=== PATIENT | female | born 1965 | race Caucasian/White ===

== ENCOUNTER 2019-10-02 15:18 | Emergency (ER) | payer OTHER, SELFPAY ==
[2019-10-02 15:22] VITALS: BP 161/92; PULSE 101; RESP 18; TEMP 36.1; O2SAT 99
--- NOTE | 2019-10-02 16:06 | ED.GENADULT ---
HPI - General Adult General Chief complaint: Unspecified Stated complaint: sick for 3 days Time Seen by Provider: 10/02/19 15:53 History of Present Illness HPI narrative: SHe reports diffuse pain, nausea, and fatigue for the past 3 days. Symptoms started after discontinuation of cyclosporine. She was on it for interstitial cystitis. He urologist left their practice without notice and she has not been able to get it filled. No fever, chills, diarrhea. Related Data Home Medications Medication Instructions Recorded Confirmed albuterol sulfate 1 inh INHALATION QID PRN 10/02/19 calcium carbonate-vitamin D3 tablet 10/02/19 [Oysco 500/D] cyclobenzaprine mg 10/02/19 docusate sodium [DOK] PO 10/02/19 ergocalciferol (vitamin D2) 10/02/19 famotidine 10/02/19 fluticasone propionate INTRANASAL 10/02/19 gabapentin 10/02/19 galcanezumab-gnlm [Emgality Pen] 120 mg SUBCUT ONCE 10/02/19 10/02/19 hydrocodone-acetaminophen tablet 10/02/19 leflunomide 20 mg PO DAILY 10/02/19 10/02/19 jhldvj-auqdwzyk-vjelmhf [Creon] PO 10/02/19 meclizine mg 10/02/19 montelukast mg 10/02/19 sumatriptan succinate mg PO 10/02/19 Allergies Allergy/AdvReac Type Severity Reaction Status Date / Time aspirin Allergy Mild JITTERY Verified 10/02/19 17:50 morphine Allergy Unknown Rash Verified 10/02/19 17:50 Penicillins Allergy Unknown UNKNOWN Verified 10/02/19 17:50 Review of Systems Review of Systems: All systems reviewed & are unremarkable except as noted in HPI and below Constitutional: Constitutional: Reports fatigue and Reports weakness ENT: Denies sore throat Cardiovascular: Cardiovascular: Denies chest pain Gastrointestinal: Gastrointestinal: Reports nausea Genitourinary: Genitourinary: Denies hematuria and Denies dysuria Musculoskeletal: Musculoskeletal: Reports back pain Neurologic: Reports weakness [facility] Past Medical History Medical History (Updated 10/02/19 @ 18:05 by Wilber Denis MD) Interstitial cystitis Rheumatoid arthritis Social History Social History Gender identity (if verbalized by the patient): Female Exam Const: General: no acute distress and alert Orientation/consciousness: patient oriented x3 HENMT: Head: normal to inspection Neck: Neck: normal visual inspection and no lymphadenopathy Chest: Chest palpation & inspection: no tenderness Resp: Effort & Inspection: normal respiratory effort Auscultation: clear to auscultation bilaterally, no rales, no rhonchi and no wheezes Cardio: Jugular venous distension: no JVD Rate: regular rate Rhythm: regular rhythm Heart sounds: no murmurs GI: Inspection: non-distended GI Palp: Yes Soft to palpation and No Tenderness to palpation present (GI) Skin: General skin exam: normal color Neuro: General: patient oriented x3 and moves all extremities Speech: normal speech Extrem: General: no edema Psych: Appearance: well kempt Affect: normal affect Course Vital Signs Vital signs: Vital Signs Temperature 36.1 C L 10/02/19 15:22 Pulse Rate 101 H 10/02/19 15:22 Respiratory Rate 18 10/02/19 15:22 Blood Pressure 161/92 H 10/02/19 15:22 Pulse Oximetry 99 10/02/19 15:22 Temperature 36.1 C L 10/02/19 15:22 Pulse Rate 101 H 10/02/19 15:22 Respiratory Rate 18 10/02/19 15:22 Blood Pressure 161/92 H 10/02/19 15:22 Pulse Oximetry 99 10/02/19 15:22 Medical Decision Making MDM Narrative Medical decision making narrative: I am not aware of any dangerous effects of withdrawal of cyclosporine. As this is an off label use and outside the scope of my practice I do not feel comfortable continuing it. I will provide zofran as this seemed to be effective in controling her nausea. Medical Records Medical records reviewed: Yes I reviewed the patient's medical records. Vital Signs Vital Signs: Vital Signs Temperature 36.1 C L 10/02/19 15:22 Pulse Rate 101 H 07
[2019-10-02 16:27] LABS: Basophils Absolute Auto 0.1 K/mm3 (0.0-0.1); Basophils Percent Auto 0.9 % (0.2-1.2); Eosinophils Absolute Auto 0.2 K/mm3 (0-0.3); Eosinophils Percent Auto 3.6 % (0-4.4); Hematocrit 35.9 % (37.0-47.0); Hemoglobin 12.5 g/dL (12.0-15.0); Immature Granulocyte Absolute 0.02 K/mm3 (0.00-0.031); Immature Granulocyte Percent A 0.3 % (0-0.5); Lymphocytes Absolute Auto 1.53 K/mm3 (0.9-3.2); Lymphocytes Percent Auto 26.3 % (18.3-44.2); Mean Corpuscular HGB Conc 34.8 g/dl (32-36); Mean Corpuscular Hemoglobin 31.3 pg (26-34); Mean Platelet Volume 9.7 fl (7.4-10.4); Monocytes Absolute Auto 0.8 K/mm3 (0.1-0.6); Monocytes Percent Auto 13.7 % (2.6-8.5); Neutrophils Absolute Auto 3.2 K/mm3 (1.3-6.7); Neutrophils Percent Auto 55.2 % (45.5-73.1); Platelet Count Result 388 k/mm3 (150-375); Red Blood Count 3.99 M/mm3 (4.2-5.4); Red Cell Distribution Width 12.9 % (11.5-14.5); White Blood Count 5.8 K/mm3 (4.5-10.0)
[2019-10-02] MEDS: ONDANSETRON INJ 4 MG/2 ML VIAL IV PUSH (16:28)
[2019-10-02] MEDS: SODIUM CHLORIDE 0.9% IV 1,000 ML 999 ML IV CONT (16:28)
[2019-10-02 16:30] LABS: Add Urine Microscopic? YES; Appearance Urine Clear (Clear); Bilirubin Urine Negative (Negative); Blood Urine 1+ (Negative); Color Urine Colorless (Yellow); Glucose Urine UA Negative (Negative); Ketones Urine Negative (Negative); Leukocyte Esterase Ur Negative LEU/UL (Negative); Nitrate Urine Negative (Negative); Protein Urine Negative (Negative); RBC Urine 0-2 /hpf (0-2); Specific Grav Ur 1.008 (1.001-1.035); Squamous Epithelial Cell Urine Rare /hpf (Few); Urobilinogen Urine Negative mg/dL (<2.0); WBC Urine 0-3 /hpf
[2019-10-02 16:39] LABS: Alanine Aminotransferase 16 U/L (4-35); Albumin Level 4.2 g/dL (3.5-5.1); Alkaline Phosphatase 80 U/L (38-126); Aspartate Amino Transferase 23 U/L (14-36); Bilirubin,Total < 0.1 mg/dL (0.2-1.3); Blood Urea Nitrogen 7 mg/dL (7-17); Calcium 9.1 mg/dL (8.4-10.2); Carbon Dioxide 27 mmol/L (22-30); Chloride 106 mmol/L (98-107); Estimated CRCL calculation 97 ml/min; Estimated Glomerular Filt Rate > 60; Glucose 121 mg/dL (65-105); Potassium 3.3 mmol/L (3.4-5.0); Sodium 140 mmol/L (137-145)
== END 2019-10-02 18:04 | disposition home or self-care (01) ==
PROVIDERS: Emergency Provider Emergency Medicine; PCP Internal Medicine
DX: R11.0 Nausea (principal); M25.50 Pain in unspecified joint; M06.9 Rheumatoid arthritis, unspecified
CPT/HCPCS: 36415; 80053; 81001; 85025; 96361; 96374; 99284; J2405; J7030

== ENCOUNTER 2024-11-19 14:40 | Emergency (ER) | payer MEDICARE, SELFPAY ==
--- NOTE | ~2024-11-19 | XR_ITS ---
Clinical history:Fall EXAM:X-ray knee right 3 views TECHNIQUE:3 images of the right knee were obtained. Comparisons:None FINDINGS: Bone mineralization is within normal limits. No fracture. Soft tissue swelling about the right knee. Small suprapatellar effusion. Mild joint space narrowing in the patellofemoral joint. Questionable slight lateral subluxation of the patella, however, the finding may artifactual due to patient positioning. Correlate clinically. IMPRESSION: No fracture identified. Questionable slight lateral subluxation of the patella, however, the finding may be artifactual due to patient positioning. Correlate clinically. Mild joint space narrowing in the patellofemoral joint. If symptoms persist or worsen, consider a short-term follow-up study or additional imaging for further assessment. Reviewed, dictated and finalized at location Q. IMPRESSION: No fracture identified. Questionable slight lateral subluxation of the patella, however, the finding ma y be artifactual due to patient positioning. Correlate clinically. Mild joint space narrowing in the patellofemoral joint. If symptoms persist or worsen, consider a short-term follow-up study or additio nal imaging for further assessment.
--- NOTE | ~2024-11-19 | CT_ITS ---
EXAMINATION: CT brain wo con DATE: 11/19/2024 15:56 INDICATION: Fall TECHNIQUE: Computed tomography (CT) of the head was performed without intravenous contrast. The dose-length product was 605.33 mGy-cm. COMPARISON: 04/14/2018 FINDINGS: No acute intracranial hemorrhage. No mass effect. No midline shift. No hydrocephalus. There are several low density regions scattered throughout the periventricular and deep white matter which are favored to represent chronic ischemic white matter change. No skull fracture. Visualized mastoid air cells are clear. Partial opacification of the paranasal sinuses. IMPRESSION: 1. No acute intracranial hemorrhage. No mass effect. 2. Probable chronic ischemic white matter change. Reviewed, dictated and finalized at location Q.
--- NOTE | ~2024-11-19 | XR_ITS ---
EXAMINATION: XR hand RT min 3V DATE: 11/19/2024 16:06 INDICATION: Right hand and wrist injury post fall TECHNIQUE: 1. Posteroanterior, oblique, and lateral views of the right wrist were obtained. 2. Dorsal palmar, oblique and lateral views of the right hand were obtained. COMPARISON: None. FINDINGS: Alignment of the right hand and wrist is normal. No fracture identified. Mild osteoarthritis at the wrist, triscaphe, first carpometacarpal, first metacarpophalangeal and multiple predominantly distal interphalangeal joints. Likely degenerative subarticular cystic changes along the palmar aspect of the scaphoid fossa of the distal radius. No focal soft tissue swelling. IMPRESSION: 1. 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 No acute osseous abnormality. Reviewed, dictated and finalized at location A. IMPRESSION: 1. 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 No acute osse ous abnormality.
--- NOTE | ~2024-11-19 | CT_ITS ---
EXAMINATION: CT facial & cervical spine wo DATE: 11/19/2024 15:57 INDICATION: Fall TECHNIQUE: Computed tomography (CT) of the cervical spine was performed without intravenous contrast. COMPARISON: None FINDINGS: Straightening of the normal cervical lordosis. No compression fracture in the cervical spine. Grade 1 anterolisthesis of C3 on C4 and C4 on C5. Moderate joint space narrowing at the C5-C6 and C6-7 levels. Predental space is normal limits. No prevertebral soft tissue swelling. Lateral dental intervals are within normal limits. Indeterminate 1.3 cm low-density lesion in the left thyroid lobe. IMPRESSION: 1. No compression fracture in the cervical spine. 2. Straightening of the normal cervical lordosis. 3. Grade 1 anterolisthesis of C3 on C4 and C4 on C5. 4. Moderate joint space narrowing at the C5-C6 and C6-C7 levels. 5. Indeterminant 1.3 cm low-density lesion in the left thyroid lobe. A thyroid ultrasound is recommended. If symptoms persist or worsen, consider an MRI of the cervical spine for further assessment. Reviewed, dictated and finalized at location Q. IMPRESSION: 1. No compression fracture in the cervical spine. 2. Straightening of the normal cervical lordosis. 3. Grade 1 anterolisthesis of C3 on C4 and C4 on C5. 4. Moderate joint space narrowing at the C5-C6 and C6-C7 levels. 5. Indeterminant 1.3 cm low-density lesion in the left thyroid lobe. A thyroid ultrasound is recommended. If symptoms persist or worsen, consider an MRI of the cervical spine for furthe r assessment.
[2024-11-19 14:41] VITALS: BP 139/79; PULSE 95; RESP 16; TEMP 36.8; O2SAT 96
--- OUTSIDE RECORDS SUMMARY | 2024-11-19 14:45 | XMS_ITS | Encounter Summary ---
Author Organization [facility] Address [facility] [place] [address] Care Team Providers Care Glove Boarder Name Role Phone Romy Grayson MD Primary Care Provider [phone] Encounter Details Date Type Department Care Team (Late Contact Info) Description 08/02/2021 PrePayMe Message [facility] Family & Internal Medicine [address] [address] [facility] Provider Pain management referral Social History Tobacco Use Types Packs/Day Years Used Date Smoking Tobacco: Never Smokeless Tobacco: Never Alcohol Use Standard Drinks/Week Comments Not Currently 0 (1 standard drink = 0.6 oz pur e alcohol) PHQ-2 Answer Date Recorded PHQ-2 Score - If the patient scores above 3, please move on to questions 3-9 4 07/03/2021 Comments No Sex and Gender Information Value Date Recorded Sex Assigned at Female 08/20/2024 9:35 AM CDT Legal Sex Female 6:46 PM CDT Gender Identity Female 09/07/2024 3:10 PM CDT Sexual Orientation Not on file COVID-19 Exposure Response Date Recorded In the last 10 days, have yo u been in contact with someone who was confirmed or suspected to have Coronavirus/COVID-19? No / Unsure 08/03/2021 4:44 PM CDT documented as of this encounter Plan of Treatment Upcoming Encounters Date Type Department Care Team (Late Contact Info) Description 12/09/2024 12:48 PM CDT Hospital Encounter [facility] [address] [place] [address] Mario Hopper MD [address] MORE[place] [place] [address] 12/09/2024 12:48 PM CDT Anesthesia Event [facility] [address] [place] [address] Parag Cifuentes, [facility] [address] [place] [address] 12/09/2024 12:48 PM CDT - 12/09/2024 1:42 PM CDT Surgery [facility] [address] [place] [address] Mario Hopper MD [address] [place] [address] DR MOREIR[address] [place] [address] EGD WITH BIOPSY 02/15/2025 9:20 AM SEWER PIPE PRESS OPERATOR Laboratory Only [facility] Family & Internal [address] [phone] 02/23/2025 10:40 AM SEWER PIPE PRESS OPERATOR Office Visit [facility] & Internal [address] [phone] Romy Grayson MD [address] [place] [address]. [address] [place] [address] Scheduled Procedures Name Priority Associated Diagnoses Date/Ti me EGD WITH BIOPSY Right upper quadrant abdominal pain Change in bowel habits 12/09/2024 12:48 PM CDT COLONOSCOPY WITH BIOPSY Right upper quadrant abdominal pain Change in bowel habits 12/09/2024 12:48 PM CDT documented as of this encounter Visit Diagnoses Not on filedocumented in this encounter Additional Health Concerns Assessment Noted Time PHQ-9 Depression Total Score: 16 04/2 022 8:33 AM CDT documented as of this encounter Care Teams Glove Boarder Relationship Specialty [place] [address] [address] [place] [address] PCP - General FAMILY PRACTICE 06/23/21 documented as of this encounter
--- OUTSIDE RECORDS SUMMARY | 2024-11-19 14:45 | XMS_ITS | Encounter Summary ---
Author Organization [facility] Address [facility] [place] [address] Care Team Providers Care Bung Sewer Name Role Phone Romy Grayson MD Primary Care Provider [phone] Encounter Details Date Type Department Care Team (Late st Contact Info) Description 01/15/2022 MJH Message Enc [facility] Family & Internal Medicine [facility] [address] [place] [address] Romy Grayson MD [address] [place] [address]. [address] [place] [address] Structural Steel Fitter Social History Tobacco Use Types Packs/Day Years Used Date Smoking Tobacco: Never Smokeless Tobacco: Never Comments:na Alcohol Use Standard Drinks/Week Comments Not Currently [...] suspected to have Coronavirus/COVID-19? No / Unsure 12/21/2021 8:55 AM CDT documented as of this encounter Progress Notes * Courtney Patel RN - 01/16/2022 9:09 AM CDT Dermatology referral entered 01/15/2022 * Romy Grayson MD - 01/15/2022 10:11 PM CDT Okay for derm referral for annual skin cancer screening. Thx * Reji Estrella RN - 01/15/2022 3:56 PM CDT Please advise. documented in this encounter Plan of Treatment Upcoming Encounters Date Type Department Care Team (Late st Contact Info) Description 12/09/2024 12:48 PM CDT Hospital Encounter [facility] [address] [place] [address] Mario Hopper MD [address] [place] [address] [place] [address] 12/09/2024 12:48 PM CDT Anesthesia Event [facility] [address] [place] [address] Parag Cifuentes, [facility] [address] [place] [address] 12/09/2024 12:48 PM CDT - 12/09/2024 1:42 PM CDT Surgery [facility] [address] [place] [address] Mario Hopper MD [address] [place] [address] [place] [address] EGD WITH BIOPSY 02/15/2025 9:20 AM MANAGER SEMICONDUCTOR Laboratory Only [facility] Family & Internal Medicine [address] [address] 02/23/2025 10:40 AM MANAGER SEMICONDUCTOR Office Visit [facility] Family & Internal [facility] [address] [place] [address] [place] [address] [facility]. [address] [place] [address] Scheduled Procedures Name Priority Associated Diagnoses Date/Ti [...] Noted Time PHQ-9 Depression Total Score: 16 022 8:33 AM CDT documented as of this encounter Care Teams Bung Sewer Relationship Specialty [place] [address] [address] [place] [address] PCP - General FAMILY PRACTICE 06/23/21 documented as of this encounter
--- OUTSIDE RECORDS SUMMARY | 2024-11-19 14:45 | XMS_ITS | Clinical Summary ---
Author Organization [facility] Address [address] [place] [address] Phone Care Team Providers Care Reviewer Sales Name Role Phone Zuly Flores MD Primary Care Provider [phone] Allergies Active Allergy Reactions Criticality Noted Date Comments Aspirin Itching 08/08/2021 Morphine Swelling 08/08/2021 itchin & swelling Penicillins Anaphylaxis 08/08/2021 Medications traMADol (ULTRAM) 50 MG TabletIndicatio ns:Pain Take 50 mg by mouth nightly. Indications: Pain Active Cholecalciferol (Vitamin D) 2000 UNIT Tablet Take by mouth. Activ e ondansetron (ZOFRAN-ODT) 4 MG TABLET DISPERSIBLE Take 1 Tablet by mouth every 6 hours as needed for Nausea - 1st line. 10 Tablet 2 Active polyethylene glycol (GLYCOLAX, MIRALAX) 17 g PackIndications :Constipation Take 1 Packet by mouth 2 times daily as needed for Constipation - 1st line. Dissolve in 4-8 oz of liquid. Indications: Constipation 90 Packet 2 Active senna (SENOKOT) 8.6 MG Tablet Take 1 Tablet by mouth 2 times daily as needed for Constipation - 2nd line. 30 Tablet 2 Active Active Problems Problem Noted Date Diagnosed Date Trigeminal neuralgia 08/08/2021 Rheumatoid arthritis 08/08/2021 Pelvic floor dysfunction (female) 08/08/2021 Pancreatitis 08/08/2021 Migraines 08/08/2021 Interstitial cystitis 08/08/2021 Fibromyalgia 08/08/2021 Asthma 08/08/2021 Chest pain 08/08/2021 Social History Tobacco Use Types Packs/Day Years Used Date Smoking Tobacco: Never Assessed Comments Unknown Sex and Gender Information Value Date Recorded Sex Assigned at Not on file Legal Sex Female 8:45 PM CDT Gender Identity Not on file Sexual Orientation Not on file Last Filed Vital Signs Vital Sign Reading Time Taken Comments Blood Pressure 131/85 08/09/2021 10:34 AM CDT Pulse 86 08/09/2021 10:34 AM CDT Temperature 36.1 C (97 F) 08/09/2021 7:29 AM CDT Respiratory Rate 16 08/09/2021 7:30 AM CDT Oxygen Saturation 98% 08/09/2021 7:30 AM CDT Inhaled Oxygen Concentration - - Weight 93 kg (205 lb) 08/09/2021 10:15 AM CDT Height 160 cm (5' 3) 08/09/2021 10:15 AM CDT Body Mass Index 36.31 08/09/2021 10:15 AM CDT Plan of Treatment Health Maintenance Due Date Last Done Comments Hepatitis C Virus (HCV) Screening 1966 TdaP Immunization 1966 Hepatitis B Immunization (1 of 3 - 19+ 3-dose series) 1985 Cologuard 11/28/2011 Colonoscopy 11/28/2011 Colorectal Cancer Screening 11/28/2011 Immunochemical Fecal Occult Blood 11/28/2011 Zoster Immunization (1 of 2) 2016 Pneumococcal Immunization (50+ years) (2 of 2 - PPSV23, PCV20, or PCV21) 02/18/2020 12/24/2019 SARS-COV-2 Immunization (1 - season) 2023 Influenza Immunization (#1) 11/30/20242 07/2019, 12/24/2019, 01/04/2017, Additional history exists Respiratory Syncytial Virus (RSV) Immunization (Adult) (1 - 1-dose 75+ series) 2041 Pneumococcal Immunization Combined Discontinued 12/24/2019 Human Papillomavirus (HPV) Immunization Aged Out No longer eligible based on patient's age to complete this topic Meningococcal Immunization (ACWY) Aged Out No longer eligible based on patient's age to complete this topic Rotavirus Immunization Aged Out No lo nger eligible based on patient's age to complete this topic Insurance MEDICARE [place] Advance Directives * Full Code (Latest Code Status on File) Date Activated Date Inactivated Comments 08/08/2021 5:24 PM 08/09/2021 7:09 PM CPR-Full David atment: FULL ARREST: Attempt Resuscitation/CPR wit intubation and mechanical ventilation. PRE-ARREST: Use entire range of life support measures to stabilize the patient. Care Teams Reviewer Sales Relationship Specialty Start Date End Date Zuly Flores MD [address] [place] [address] PCP - General Family Medicine 08/10/16
--- OUTSIDE RECORDS SUMMARY | 2024-11-19 14:45 | XMS_ITS | Encounter Summary ---
Author Organization [facility] Address [facility] [place] [address] Care Team Providers Care Manufacturing Supervisor 2Nd Shift Name Role Phone Romy Grayson MD Primary Care Provider [phone] Encounter Details Date Type Department Care Team (Late st Contact Info) Description 07/10/2024 Blue Medora Message Enc [facility] Medical [facility] General Surgery [address], [address] [place] [address] Mario Hopper MD [address] [place] [address] [address] Colonoscopy Social History Tobacco Use Types Packs/Day Years Used Date Smoking Tobacco: Never Smokeless Tobacco: Never Comments:na Alcohol Use Standard Drinks/Week Comments Not Currently 0 (1 standard drink = 0.6 oz pur e alcohol) OASIS D0700: Social Isolation Answer Da te Recorded Frequency of experiencing loneliness or isolatio n Never 02/17/2024 OASIS A1250: Transportation Answer Date Recorded Lack of Transportation (Medical) No 02/17/2024 Lack of Transportation (Non-Medical) No 02/17/2024 Patient Unable or Declines to Respond No 02/17/2024 OASIS B1300: Health Literacy Answer Massimo e Recorded Frequency of needing help to read materials from doctor or pharmacy Never 02/17/2024 [facility] Utilities Answer Date Recorded In the past 12 months has e [employer], gas, oil, or water company threatened to shut off services in your home? No 02/07/2024 Humiliation, Afraid, Rape, and Kick questionnair e Answer Date Recorded Within the last year, have y ou been afraid of your partner or ex-partner? No 02/07/2024 Within the last year, have y ou been humiliated or emotionally abused in other ways by your partner or ex-partner? No Within the last year, have y ou been kicked, hit, slapped, or otherwise physically hurt by your partner or ex-partner? No 02/07/2024 Within the last year, have y ou been raped or forced to have any kind of sexual activity by your partner or ex-partner? No 02/07/2024 Overall Financial Resource Strain (CARDIA) Answe r Date Recorded How hard is it for you to pa y for the very basics like food, housing, medical care, and heating? Not hard at all 02/07/2024 PHQ-2 Answer Date Recorded Patient Health Questionnaire-2 Score 0 02/19/2024 Hunger Vital Sign Answer Date Recorded Within the past 12 months, y ou worried that your food would run out before you got the money to buy more. Never true 02/07/20 24 Within the past 12 months, t he food you bought just didn't last and you didn't have money to get more. Never true 02/07/2024 PRAPARE - Transportation Answer Date Re corded In the past 12 months, has l ack of transportation kept you from medical appointments or from getting medications? No 10/2023 In the past 12 months, has l ack of transportation kept you from meetings, work, or from getting things needed for daily living? No 02/07/2024 Housing Stability Vital Sign Answer Massimo e Recorded In the last 12 months, was t here a time when you were not able to pay the mortgage or rent on time? No 02/07/2024 In the past 12 months, how m any times have you moved where you were living? 1 02/07/2024 At any time in the past 12 m [facility], were you homeless or living in a [facility] (including now)? No 02/07/2024 Comments No Sex and Gender Information Value Date Recorded Sex Assigned at Female 08/20/2024 9:35 AM CDT Legal Sex Female 6:46 PM CDT Gender Identity Female 09/07/2024 3:10 PM CDT Sexual Orientation Not on file documented as of this encounter Functional Status * Are you deaf or do you have serious difficulty hearing Answer Date of Assessment Author Status No 02/05/2024 6:22 PM Olivia Patiño, R N Active * Are you blind or do you have serious difficulty seeing, even when wearing glasses? Answer Date of Assessment Author Status No 02/05/2024 6:22 PM Olivia Patiño, R N Active * Do you have serious difficulty walking or climbing stairs? Answer Date of Assessment Author Status Yes 02/05/2024 6:22 PM Olivia Patiño, R N Active * Do you have difficulty dressing or bathing? Answer Date of Assessment Author Status No 02/05/2024 6:22 PM Olivia Patiño, R N Active * Because of a physical, mental, or emotional condition, do you have difficulty doing errands alone such as visiting a doctor's office or shopping? Answer Date of Assessment Author Status No 02/05/2024 6:22 PM Olivia Patiño, R N Active documented as of this encounter Mental Status * Because of a physical, mental, or emotional condition, do you have serious difficulty concentrating, remembering, or making decisions? Answer Entry Date Author Status No 02/05/2024 6:22 PM Olivia Patiño, R N Active documented in this encounter Plan of Treatment Upcoming Encounters Date Type Department Care Team (Late st Contact Info) Description 12/09/2024 12:48 PM CDT Hospital Encounter [facility] [address] [place] [address] Mario Hopper MD [facility] [place] [address] 12/09/2024 12:48 PM CDT Anesthesia Event [facility] [address] [place] [address] Parag Cifuentes CRNA [address] [place] [address] 12/09/2024 12:48 PM CDT - 12/09/2024 1:42 PM CDT Surgery [facility] [address] [place] [address] Mario Hopper MD [address] [facility] [address] [place] [address] [place] [address] EGD WITH BIOPSY 02/15/2025 9:20 AM AUTO TOP MECHANIC Laboratory Only [facility] Family & Internal Medicine [facility] [address] [place] [address] 02/23/2025 10:40 AM AUTO TOP MECHANIC Office Visit [facility] Family & Internal Medicine [facility] [address] [place] [address] [place] [address] [facility]. [address] [place] [address] Scheduled Procedures Name Priority Associated Diagnoses Date/Ti me EGD WITH BIOPSY Right upper quadrant abdominal pain Change in bowel habits 12/09/2024 12:48 PM CDT COLONOSCOPY WITH BIOPSY Right upper quadrant abdominal pain Change in bowel habits 12/09/2024 12:48 PM CDT documented as of this encounter Visit Diagnoses Not on filedocumented in this encounter Additional Health Concerns Assessment Noted Time PHQ-9 Depression Total Score: 0 02/19/20 10:26 AM AUTO TOP MECHANIC documented as of this encounter Care Teams Manufacturing Supervisor 2Nd Shift Relationship Specialty [place] [address] [facility] [employer]. [address] [place] [address] PCP - General FAMILY PRACTICE 06/23/21 documented as of this encounter
--- OUTSIDE RECORDS SUMMARY | 2024-11-19 14:45 | XMS_ITS | Encounter Summary ---
Author Organization [facility] Address [facility] [place] [address] Care Team Providers Care Axle Bearing Polisher Name Role Phone Romy Grayson MD Primary Care Provider [phone] Encounter Details Date Type Department Care Team (Late st Contact Info) Description 09/13/2022 TopLogt Message Enc [facility] Medical Group Family & Internal Medicine [address] [address] Romy Grayson MD [address] [place] [address]. [address] [place] [address] Hip pain Social History Tobacco Use Types Packs/Day Years [...] on file documented as of this encounter Plan of Treatment Upcoming Encounters Date Type Department Care Team (Late st Contact Info) Description 12/09/2024 12:48 PM CDT Hospital Encounter [facility] [address] [place] [address] Mario Hopper MD [address] [facility] [address] [place] [address] [place] [address] 12/09/2024 12:48 PM CDT Anesthesia Event [facility] [address] [place] [address] Parag Cifuentes [facility] [address] [place] [address] 12/09/2024 12:48 PM CDT - 12/09/2024 1:42 PM CDT Surgery [facility] [address] [place] [address] Mario Hopper MD [address] [facility] [address] [place] [address] [place] [address] EGD WITH BIOPSY 02/15/2025 9:20 AM LITIGATOR Laboratory Only [facility] Family & Internal [address] [phone] 02/23/2025 10:40 AM LITIGATOR Office Visit [facility] Family & Internal [address] [phone] Romy Grayson MD [address] [place] [address]. [address] [place] [address] Scheduled Procedures Name Priority Associated Diagnoses Date/Ti [...] documented as of this encounter Care Teams Axle Bearing Polisher Relationship Specialty [place] [address] [address] [place] [address] PCP - General FAMILY PRACTICE 06/23/21 documented as of this encounter
--- OUTSIDE RECORDS SUMMARY | 2024-11-19 14:45 | XMS_ITS | Encounter Summary ---
Author Organization [facility] Address [facility] [place] [address] Care Team Providers Care Casting Operator Name Role Phone Romy Grayson MD Primary Care Provider [phone] Encounter Details Date Type Department Care Team (Late Contact Info) Description 11/19/2023 Prep for Procedure [facility] [address] [place] [address] Mario Hopper MD [facility] [address] [address] Social History Tobacco Use Types Packs/Day Years Used Date Smoking Tobacco: Never Smokeless Tobacco: Never Comments:na Alcohol Use Standard Drinks/Week Comments Not Currently 0 (1 standard drink = 0.6 oz pur e alcohol) PHQ-2 Answer Date Recorded Patient Health Questionnaire-2 Score 0 10/25/2023 Comments No Sex and Gender Information Value Date Recorded Sex Assigned at Female 08/20/2024 9:35 AM CDT Legal Sex Female 6:46 PM CDT Gender Identity Female 09/07/2024 3:10 PM CDT Sexual Orientation Not on file documented as of this encounter Plan of Treatment Upcoming Encounters Date Type Department Care Team (Late Contact Info) Description 12/09/2024 12:48 PM CDT Hospital Encounter [facility] [address] [place] [address] Mario Hopper MD [address] [facility] [address] [place] [place] [address] 12/09/2024 12:48 PM CDT Anesthesia Event [facility] [address] [place] [address] Parag Cifuentes, [facility] [address] [place] [address] 12/09/2024 12:48 PM CDT - 12/09/2024 1:42 PM CDT Surgery [facility] [address] [place] [address] Mario Hopper MD [address] [facility] [address] [place] [address] [place] [address] EGD WITH BIOPSY 02/15/2025 9:20 AM DEPARTMENT OPERATIONS MANAGER Laboratory Only [facility] Family & Internal [address] [phone] 02/23/2025 10:40 AM DEPARTMENT OPERATIONS MANAGER Office Visit [facility] Internal [address] [phone] Romy Grayson MD [address] [place] [address]. [address] [place], [place] [phone] Scheduled Procedures Name Priority Associated Diagnoses Date/Ti me EGD WITH BIOPSY Right upper quadrant abdominal pain Change in bowel habits 12/09/2024 12:48 PM CDT COLONOSCOPY WITH BIOPSY Right upper quadrant abdominal pain Change in bowel habits 12/09/2024 12:48 PM CDT documented as of this encounter Results * ECG 12-Lead (11/21/2023 11:10 AM CDT) 11/21/2023 11:1 0 AM CDT Narrative [facility] RAD - 11/22/2023 6:48 AM CDT [facility] Test Date: 2023-11-21 Pat Name: STELLA GONZALEZ Department: 85 Room: Gender: Female Lunch Cook: : 1965 Requested By: TERRENCE GOLDMAN Order Number: [id number] Reading MD: Vega Melo Measurements Intervals Wilsey Rate: 71 P: 20 ND: 155 QRS: 11 QRSD: 78 T: 10 QT: 382 QTc: 417 Interpretive Statements SINUS RHYTHM POSSIBLE INFERIOR MYOCARDIAL INFARCTION , PROBABLY OLD [30 ms Q WAVE IN II/aVF] Compared to ECG 10/12/2022 14:24:51 T-wave abnormality no longer present Possible ischemia no longer present Myocardial infarct finding still present Procedure Note Vega Melo MD - 11/22/2023 [facility] Test Date: 2023-11-21 Pat Name: STELLA GONZALEZ Department: 85 Room: Gender: Female Lunch Cook: : 1965 Requested By: TERRENCE GOLDMAN Order Number: [id number] Reading MD: Vega Melo Measurements Intervals Wilsey Rate: 71 P: 20 ND: 155 QRS: 11 QRSD: 78 T: 10 QT: 382 QTc: 417 Interpretive Statements SINUS RHYTHM POSSIBLE INFERIOR MYOCARDIAL INFARCTION , PROBABLY OLD [30 ms Q WAVE IN II/aVF] Compared to ECG 10/12/2022 14:24:51 T-wave abnormality no longer present Possible ischemia no longer present Myocardial infarct finding still present us Terrence Goldman MD ECG ORDERABLES Final Result [facility] RAD documented in this encounter Visit Diagnoses Diagnosis Preop testing- Primary Preoperative examination, unspecified Preop testing Preoperative examination, unspecified Right upper quadrant abdominal pain Abdominal pain, right upper quadrant Change in bowel habits Other symptoms involving digestive system documented in this encounter Additional Health Concerns Assessment Noted Time PHQ-9 Depression Total Score: 16 04/04/2 022 8:33 AM CDT documented as of this encounter Care Teams Casting Operator Relationship Specialty [place] [address] [address] [place] [address] PCP - General FAMILY PRACTICE 06/23/21 documented as of this encounter
--- OUTSIDE RECORDS SUMMARY | 2024-11-19 14:45 | XMS_ITS | Encounter Summary ---
Author Organization [facility] Address [facility]6 [place] [address] Care Team Providers Care Threshing Department Supervisor Name Role Phone Romy Grayson MD Primary Care Provider [phone] Encounter Details Date Type Department Care Team (Late st Contact Info) Description 01/01/2022 Liquid X Message Enc [facility] Medical Group Family & Internal Medicine [address] [phone] Romy Grayson MD [address] [place] [address]. [address] [place] [address] [place] Social History Tobacco Use Types Packs/Day Years [...] Progress Notes * Courtney Patel RN - 01/02/2022 2:31 PM CDT Medication sent * Romy Grayson MD - 01/02/2022 11:52 AM CDT Yes, please send for 90 day script- 2 tabs at bedtime PRN. Thanks * Courtney Patel RN - 01/02/2022 10:36 AM CDT Ok for script? documented in this encounter Plan of Treatment Upcoming Encounters Date Type Department Care Team (Late st Contact Info) Description 12/09/2024 12:48 PM CDT Hospital Encounter [facility] [address] [place] [address] Mario Hopper MD [address] [facility] [address] [place] [address] 12/09/2024 12:48 PM CDT Anesthesia Event [facility] [address] [place] [address] Parag Cifuentes [facility] [address] [place] [address] 12/09/2024 12:48 PM CDT - 12/09/2024 1:42 PM CDT Surgery [facility] [address] [place] [address] Mario Hopper MD [address] [facility] [address] [place] [address] [place] [address] EGD WITH BIOPSY 02/15/2025 9:20 AM AUDITOR TAX Laboratory Only [facility] Family & Internal Medicine [address] [phone] 02/23/2025 10:40 AM AUDITOR TAX Office Visit [facility] Family & Internal Medicine [address] [address] [place] [address] [facility] [place]. [address] [place] [address] Scheduled Procedures Name Priority Associated Diagnoses Date/Ti [...] documented as of this encounter Care Teams Threshing Department Supervisor Relationship Specialty [place] [address] [facility] [place]. [address] [place] [address] PCP - General FAMILY PRACTICE 06/23/21 documented as of this encounter
--- OUTSIDE RECORDS SUMMARY | 2024-11-19 14:45 | XMS_ITS | Encounter Summary ---
Author Organization [facility] Address [facility] [place] [address] Care Team Providers Care Upholstery Bundler Name Role Phone Romy Grayson MD Primary Care Provider [phone] Encounter Details Date Type Department Care Team (Late st Contact Info) Description 12/14/2021 [employer] Message Enc [facility] Medical Group Family & Internal Medicine [address] [address] Romy Grayson MD [address] [place] [address]. [address] [place] [address] Food allergy test request Social History Tobacco Use Types Packs/Day Years [...] suspected to have Coronavirus/COVID-19? No / Unsure 12/14/2021 9:53 AM CDT documented as of this encounter Progress Notes * Courtney Patel RN - 12/14/2021 2:32 PM CDT Please advise. documented in this encounter Plan of Treatment Upcoming Encounters Date Type Department Care Team (Late st Contact Info) Description 12/09/2024 12:48 PM CDT Hospital Encounter [facility] [address] [place] [address] Mario Hopper MD [address] [facility] [address] [place] [address] 12/09/2024 12:48 PM CDT Anesthesia Event [facility] [address] [place] [address] Parag Cifuentes, [facility] [address] [place] [address] 12/09/2024 12:48 PM CDT - 12/09/2024 1:42 PM CDT Surgery [facility] [address] [place] [address] Mario Hopper MD [address] [facility] [address] [place] [place] [address] EGD WITH BIOPSY 02/15/2025 9:20 AM OUTPATIENT THERAPIST Laboratory Only [facility] Internal [address] [phone] 02/23/2025 10:40 AM OUTPATIENT THERAPIST Office Visit [facility] Family & Internal Medicine [facility] [address] [place] [phone] Romy Grayson [place] [phone] [place] [address]. [address] [address] Scheduled Procedures Name Priority Associated Diagnoses Date/Ti [...] documented as of this encounter Care Teams Upholstery Bundler Relationship Specialty [place] [address] [facility]. [address] [place] [address] PCP - General FAMILY PRACTICE 06/23/21 documented as of this encounter
--- OUTSIDE RECORDS SUMMARY | 2024-11-19 14:45 | XMS_ITS | Encounter Summary ---
Author Organization [facility] Address [facility] [place] [address] Care Team Providers Care Eviscerator Name Role Phone Romy Grayson MD Primary Care Provider [phone] Encounter Details Date Type Department Care Team (Late st Contact Info) Description 10/08/2024 Results Follow-Up [facility] Medical Group Family & Internal Medicine [address] [address] Lizeth Ramsey, [place] [address] MRI ABD WWO CON Social History Tobacco Use Types Packs/Day Years [...] materials from doctor or pharmacy Never 02/17/2024 [facility] Utilities Answer Date Recorded In the past 12 months has th e [employer], oil, or [employer] threatened to shut off services in your [...] Date Recorded Patient Health Questionnaire-2 Score 0 09/07/2024 Hunger Vital Sign Answer Date Recorded Within [...] any time in the past 12 m [facility], were you homeless or living in a long term (including now)? No 02/07/2024 Comments No Sex [...] Assessment Author Status No 02/05/2024 6:22 PM FELL CUTTER Olivia Wallace, R N Active * Are you blind or do you have serious difficulty seeing, even when wearing glasses? Answer Date of Assessment Author Status No 02/05/2024 6:22 PM FELL CUTTER Olivia Wallace, R N Active * Do you have [...] Assessment Author Status No 02/05/2024 6:22 PM FELL CUTTER Olivia Wallace, R N Active documented as of this encounter Mental Status * Because of a physical, mental, or emotional condition, do you have serious difficulty concentrating, remembering, or making decisions? Answer Entry Date Author Status No 02/05/2024 6:22 PM Olivai Patiño, R N Active documented in this encounter Progress Notes * Francheska Whitney RN - 10/09/2024 10:52 AM CDT Pt is aware that a message was sent to radiology staff to let radiologist who read report know she had her GB removed. This is the addended note. * Francheska Whitney RN - 10/08/2024 4:16 PM CDT Called pt and informed her of results. She v/u. States she does not have a gallbladder. States how can you really trust who read this report when they are commenting on something I had removed. Informed her I would call radiology and let them know about this. Pt was upset and requested another radiologist read the exam. Called radiology and spoke with Chelsi and Pennie and they state they will send message to radiologist that read this report, but another radiologist will not read the exam. documented in this encounter Plan of Treatment Upcoming Encounters Date Type Department Care Team (Late st Contact Info) Description 12/09/2024 12:48 PM CDT Hospital Encounter [facility] [address] [place] [address] Mario Hopper MD [address] [facility] [address] [place] [place] [address] 12/09/2024 12:48 PM CDT Anesthesia Event [facility] [address] [place] [address] Parag Cifuentes, [facility] [address] [place] [address] 12/09/2024 12:48 PM CDT - 12/09/2024 1:42 PM CDT Surgery [facility] [address] [place] [address] Mario Hopper MD [facility] [address] [place] [place] [address] EGD WITH BIOPSY 02/15/2025 9:20 AM FELL CUTTER Laboratory Only [facility] Family & Internal Medicine [address] [phone] 02/23/2025 10:40 AM FELL CUTTER Office Visit [facility] Family & Internal [address] [phone] Romy Grayson MD [address] [place] [address]. [address] [place] [address] Scheduled Procedures Name Priority Associated Diagnoses Date/Ti me EGD WITH BIOPSY Right upper quadrant abdominal pain Change in bowel habits 12/09/2024 12:48 PM CDT COLONOSCOPY WITH BIOPSY Right upper quadrant abdominal pain Change in bowel habits 12/09/2024 12:48 PM CDT documented as of this encounter Goals Goal Patient Goal Type Associated Problems Recent Progress Patient-Stated? Author Autogenerat ed Goal Care Plan Autogenerated Problem No Lyndsey Ashley RN documented as of this encounter Visit Diagnoses Not on filedocumented in this encounter Additional Health Concerns Active Problems Noted Date Diagnosed Date Autogenerated Problem 11/17/2024 Assessment Noted Time PHQ-9 Depression Total Score: 0 09/08/19 25 3:11 PM CDT documented as of this encounter Care Teams Eviscerator Relationship Specialty [place] [address] [facility]. [address] [place] [address] PCP - General FAMILY PRACTICE 06/23/21 documented as of this encounter
--- OUTSIDE RECORDS SUMMARY | 2024-11-19 14:45 | XMS_ITS | Encounter Summary ---
Author Organization [facility] Address [facility] [place] [address] Care Team Providers Care Engagement Mgr Name Role Phone Romy Grayson MD Primary Care Provider [phone] Encounter Details Date Type Department Care Team (Late st Contact Info) Description 11/09/2021 [employer] Message Enc [facility] Medical Group Family & Internal Medicine [address] [address] Romy Grayson MD [address] [place] [address]. [address] [place] [address] Dietitian Referal Social History Tobacco Use Types Packs/Day Years [...] suspected to have Coronavirus/COVID-19? No / Unsure 11/09/2021 8:30 AM CDT documented as of this encounter Functional Status * Calculated C-SSRS Risk Score (Lifetime/Recent) Answer Date of Assessment Author Status No Risk Indicated 11/09/2021 8:43 AM CDT Kevin Esquivel, RN Active * [place] Suicide Severity Rating Scale (Screener/Recent Self-Report) Question Answer Date of Assessment Author Status 1. Wish to be (Past 1 Month) No 11/09/2021 8:43 AM CDT Jenna Esquivel, RN Ac tive 2. Non-Specific Active Suicidal Thoughts (Past 1 Month) No 11/09/2021 8:43 AM CDT Jenna Esquivel, RN Ac tive 6. Suicidal Behavior (Lifetime) No 11/09/2021 8:43 AM CDT Jenna Esquivel, RN Ac ticourtney documented as of this encounter Progress Notes * Romy Grayson MD - 11/10/2021 10:03 AM CDT Advise apt to discuss weight loss AND TELEPHONIC RN. tHANKS * Courtney Patel RN - 11/10/2021 9:27 AM CDT Please advise. documented in this encounter Plan of Treatment Upcoming Encounters Date Type Department Care Team (Late st Contact Info) Description 12/09/2024 12:48 PM CDT Hospital Encounter [facility] [address] [place] [address] Mario Hopper MD [address] [place] [address] DR [address] [place] [address] 12/09/2024 12:48 PM CDT Anesthesia Event [facility] [address] [place] [address] Parag Cifuentes [facility] [address] [place] [address] 12/09/2024 12:48 PM CDT - 12/09/2024 1:42 PM CDT Surgery [facility] [address] [place] [address] Mario Hopper MD [address] [facility] [address] [place] [address] [place] [address] EGD WITH BIOPSY 02/15/2025 9:20 AM SHIFT PRODUCTION SUPERVISOR Laboratory Only [facility] Family & Internal [facility] [address] [place] [address] 02/23/2025 10:40 AM SHIFT PRODUCTION SUPERVISOR Office Visit [facility] Family & Internal [facility] [address] [place] [address] [place] [address] [facility]. [address] [place] [address] Scheduled Procedures Name Priority Associated Diagnoses Date/Ti [...] documented as of this encounter Care Teams Engagement Mgr Relationship Specialty [place] [address] [facility]. [address] [place] [address] PCP - General FAMILY PRACTICE 06/23/21 documented as of this encounter
--- OUTSIDE RECORDS SUMMARY | 2024-11-19 14:45 | XMS_ITS | Encounter Summary ---
Author Organization [facility] Address [facility] [place] [address] Care Team Providers Care Architectural Job Captain Name Role Phone Romy Grayson MD Primary Care Provider [phone] Encounter Details Date Type Department Care Team (Late st Contact Info) Description 08/10/2021 Light Extraction Message Enc [facility] Medical Group Family & Internal Medicine [facility] [address] [place] [phone] Romy Grayson MD [address] [place] [address]. [address] [place] [address] Follow up appointment Social History Tobacco Use Types Packs/Day Years [...] suspected to have Coronavirus/COVID-19? No / Unsure 08/08/2021 9:20 AM CDT documented as of this encounter Plan of Treatment Upcoming Encounters Date Type Department Care Team (Late st Contact Info) Description 12/09/2024 12:48 PM CDT Hospital Encounter [facility] [address] [place] [address] Mario Hopper MD [address] [facility] [address] [place] [place] [address] 12/09/2024 12:48 PM CDT Anesthesia Event [facility] [address] [place] [address] [address] [address] 12/09/2024 12:48 PM CDT - 12/09/2024 1:42 PM CDT Surgery [facility] [address] [place] [address] Mario Hopper MD [address] [facility] [address] [place] [place] [address] EGD WITH BIOPSY 02/15/2025 9:20 AM CAR RENTAL AGENT Laboratory Only [facility] Family & Internal [address] [phone] 02/23/2025 10:40 AM CAR RENTAL AGENT Office Visit [facility] Family & Internal [facility] [address] [place] [phone] [place] [address] [facility]. [address] [place] [address] Scheduled Procedures Name Priority Associated Diagnoses Date/Ti [...] documented as of this encounter Care Teams Architectural Job Captain Relationship Specialty [place] [address] [address] [place] [address] PCP - General FAMILY PRACTICE 06/23/21 documented as of this encounter
--- OUTSIDE RECORDS SUMMARY | 2024-11-19 14:45 | XMS_ITS | Encounter Summary ---
Author Organization [facility] Address [facility]ly [facility], later [facility] [place] [address] Care Team Providers Care Improvement Advisor Name Role Phone Romy Grayson MD Primary Care Provider [phone] Encounter Details Date Type Department Care Team (Late Contact Info) Description 10/12/2022 Prep for Procedure [facility] [address] [place] [address] Dany Velasco MD [address] [place] [phone] Social History Tobacco Use Types Packs/Day Years Used Date Smoking Tobacco: Never Smokeless Tobacco: Never Comments:na Alcohol Use Standard Drinks/Week Comments Not Currently 0 (1 standard drink = 0.6 oz pur e alcohol) PHQ-2 Answer Date Recorded Patient Health Questionnaire-2 Score 0 10/11/2022 Comments No Sex and Gender Information Value Date Recorded Sex Assigned at Female 08/20/2024 9:35 AM CDT Legal Sex Female 6:46 PM CDT Gender Identity Female 09/07/2024 3:10 PM CDT Sexual Orientation Not on file documented as of this encounter Plan of Treatment Upcoming Encounters Date Type Department Care Team (Late Contact Info) Description 12/09/2024 12:48 PM CDT Hospital Encounter [facility] [address] [place] [address] Mario Hopper MD [address] [place] [address] 12/09/2024 12:48 PM CDT Anesthesia Event [facility] [id number] [place] [address] Parag Cifuentes, [facility] [address] [place] [address] 12/09/2024 12:48 PM CDT - 12/09/2024 1:42 PM CDT Surgery [address] [address] Mario Hopper MD [address] MOREIR[address] [place] [address] EGD WITH BIOPSY 02/15/2025 9:20 AM TUBE WASHER Laboratory Only [facility] Family & Internal [address] [phone] 02/23/2025 10:40 AM TUBE WASHER Office Visit [facility] & Internal [address] [phone] Romy Grayson MD [address] [place] [address]. [address] [place] [address] [phone] Scheduled Procedures Name Priority Associated Diagnoses Date/Ti me EGD WITH BIOPSY Right upper quadrant abdominal pain Change in bowel habits 12/09/2024 12:48 PM CDT COLONOSCOPY WITH BIOPSY Right upper quadrant abdominal pain Change in bowel habits 12/09/2024 12:48 PM CDT documented as of this encounter Results * ECG 12-Lead (10/12/2022 2:24 PM CDT) 10/12/2022 2:24 PM CDT Narrative [facility] RAD - 10/12/2022 3:09 PM CDT [facility] Test Date: 2022-10-12 Pat Name: STELLA GONZALEZ Department: 85 Room: Gender: Female Right Of Way Clearer: : 1965 Requested By: DANY VELASCO Order Number: [id number] Reading MD: Franky Snider Measurements Intervals Plains Rate: 63 P: 18 WY: 162 QRS: 33 QRSD: 84 T: 28 QT: 394 QTc: 406 Interpretive Statements SINUS RHYTHM POSSIBLE INFERIOR MYOCARDIAL INFARCTION , PROBABLY OLD WITH POSTERIOR EXTENSION [30 ms Q WAVE IN II/aVFPROMINENT R WAVE IN V1/ MODERATE T-WAVE ABNORMALITY, CONSIDER ANTERIOR ISCHEMIA [-0.1+ mV T-WAVE IN V3/V4] Compared to ECG 08/08/2021 11:26:40 T-wave abnormality now present Possible ischemia now present Sinus bradycardia no longer present Myocardial infarct finding still present Procedure Note Franky Snider MD - 10/12/2022 [facility] Test Date: 2022-10-12 Pat Name: STELLA GONZALEZ Department: 85 Room: Gender: Female Right Of Way Clearer: : 1965 Requested By: DANY VELASCO Order Number: [id number] Reading : Franky Snider Measurements Intervals Plains Rate: 63 P: 18 WY: 162 QRS: 33 QRSD: 84 T: 28 QT: 394 QTc: 406 Interpretive Statements SINUS RHYTHM POSSIBLE INFERIOR MYOCARDIAL INFARCTION , PROBABLY OLD WITH POSTERIOR EXTENSION [30 ms Q WAVE IN II/aVFPROMINENT R WAVE IN V1/ MODERATE T-WAVE ABNORMALITY, CONSIDER ANTERIOR ISCHEMIA [-0.1+ mV T-WAVEIN V3/V4] Compared to ECG 08/08/2021 11:26:40 T-wave abnormality now present Possible ischemia now present Sinus bradycardia no longer present Myocardial infarct finding still present us Dany Velasco MD ECG ORDERABLES Final Resul t [facility] RAD documented in this encounter Visit Diagnoses [...] documented as of this encounter Care Teams Improvement Advisor Relationship Specialty [place] [address] [facility] [address] [place] [address] PCP - General FAMILY PRACTICE 06/23/21 documented as of this encounter
--- OUTSIDE RECORDS SUMMARY | 2024-11-19 14:45 | XMS_ITS | Encounter Summary ---
Author Organization [facility] Address [facility] [place] [address] Care Team Providers Care Manager Safe Name Role Phone Romy Grayson MD Primary Care Provider [phone] Encounter Details Date Type Department Care Team (Late st Contact Info) Description 09/30/2024 Guess Your Songs Message Enc [facility] Medical Group Family & Internal Medicine [address] [address] Romy Grayson MD [address] [place] [address]. [address] [address] Test Social History Tobacco Use Types Packs/Day Years [...] materials from doctor or pharmacy Never 02/17/2024 [facility] Utilities Answer Date Recorded In the past 12 months has e [employer], gas, oil, or water company threatened to [...] any time in the past 12 m [facility], were you homeless or living in a custodial (including now)? No 02/07/2024 Comments No Sex [...] Assessment Author Status No 02/05/2024 6:22 PM ELEVATOR INSTALLER APPRENTICE Olivia Wallace, R N Active * Are you blind or do you have serious difficulty seeing, even when wearing glasses? Answer Date of Assessment Author Status No 02/05/2024 6:22 PM ELEVATOR INSTALLER APPRENTICE Olivia Wlalace, R N Active * Do you have serious difficulty walking or climbing stairs? Answer Date of Assessment Author Status Yes 02/05/2024 6:22 PM ELEVATOR INSTALLER APPRENTICE Olivia Wallace, R N Active * Do you have difficulty dressing or bathing? Answer Date of Assessment Author Status No 02/05/2024 6:22 PM ELEVATOR INSTALLER APPRENTICE Olivia Wallace, R N Active * Because of a physical, mental, or emotional condition, do you have difficulty doing errands alone such as visiting a doctor's office or shopping? Answer Date of Assessment Author Status No 02/05/2024 6:22 PM ELEVATOR INSTALLER APPRENTICE Olivia Wallace, R N Active documented as of this encounter Mental Status * Because of a physical, mental, or emotional condition, do you have serious difficulty concentrating, remembering, or making decisions? Answer Entry Date Author Status No 02/05/2024 6:22 PM ELEVATOR INSTALLER APPRENTICE Olivia Wallace, R N Active documented in this encounter Progress Notes * Argenis Denis RN - 10/01/2024 2:51 PM CDT Already addressed. documented in this encounter Plan of Treatment Upcoming Encounters Date Type Department Care Team (Late st Contact Info) Description 12/09/2024 12:48 PM CDT Hospital Encounter [facility] [address] [place] [address] Mario Hopper MD [address] [place] [address] DR [address]IR[address] [place] [address] 12/09/2024 12:48 PM CDT Anesthesia Event [facility] [address] [place] [address] Parag Cifuentes CRNA 7416 [place] [address] 12/09/2024 12:48 PM CDT - 12/09/2024 1:42 PM CDT Surgery [facility] [address] [place] [address] Mario Hopper MD 4550 [facility] [address] [address] EGD WITH BIOPSY 02/15/2025 9:20 AM ELEVATOR INSTALLER APPRENTICE Laboratory Only [facility] Family & Internal [facility] [address] [place] [address] 02/23/2025 10:40 AM ELEVATOR INSTALLER APPRENTICE Office Visit [facility] Family & Internal [facility] [address] [place] [address] [place] [address] [facility]. [address] [place], [place] [phone] Scheduled Procedures Name Priority Associated Diagnoses Date/Ti me EGD WITH BIOPSY Right upper quadrant abdominal pain Change in bowel habits 12/09/2024 12:48 PM CDT COLONOSCOPY WITH BIOPSY Right upper quadrant abdominal pain Change in bowel habits 12/09/2024 12:48 PM CDT documented as of this encounter Goals Goal Patient Goal Type Associated Problems Recent Progress Patient-Stated? Author Autogenerat ed Goal Care Plan Autogenerated Problem Lyndsey Ortiz RN documented as of this encounter Visit Diagnoses Not on filedocumented in this encounter Additional Health Concerns Active Problems Noted Date Diagnosed Date Autogenerated Problem 11/17/2024 Assessment Noted Time PHQ-9 Depression Total Score: 0 09/08/19 3:11 PM CDT documented as of this encounter Care Teams Manager Safe Relationship Specialty [place] [address] [facility] [place] [address] PCP - General FAMILY PRACTICE 06/23/21 documented as of this encounter
--- OUTSIDE RECORDS SUMMARY | 2024-11-19 14:45 | XMS_ITS | Encounter Summary ---
Author Organization [facility] Address [facility] [place] [address] Care Team Providers Care Clamp Truck Driver Name Role Phone Romy Grayson MD Primary Care Provider [phone] Encounter Details Date Type Department Care Team (Late st Contact Info) Description 11/10/2024 Xoft Message [facility] General Surgery [address], [address] [place] [address] [facility] Provider Colonoscopy prep instructions Social History Tobacco Use Types Packs/Day Years Used Date Smoking Tobacco: Never Smokeless Tobacco: Never Comments:na Alcohol Use Standard Drinks/Week Comments Not Currently 3.3 (1 standard drink = 0.6 oz p ure alcohol) OASIS D0700: Social Isolation Answer Da [...] materials from doctor or pharmacy Never 02/17/2024 [facility] Utilities Answer Date Recorded In the past 12 months has th e [employer], gas, oil, or water company threatened to [...] any time in the past 12 m [facility], were you homeless or living in a residential (including now)? No 02/07/2024 Comments No Sex [...] Author Status No 02/05/2024 6:22 PM Olivia Patiño R N Active * Are you blind or do you have serious difficulty seeing, even when wearing glasses? Answer Date of Assessment Author Status No 02/05/2024 6:22 PM Olivia Patiño R N Active * Do you have serious difficulty walking or climbing stairs? Answer Date of Assessment Author Status Yes 02/05/2024 6:22 PM Olivia Patiño R N Active * Do you have difficulty dressing or bathing? Answer Date of Assessment Author Status No 02/05/2024 6:22 PM Olivia Patiño R N Active * Because of a physical, mental, or emotional condition, do you have difficulty doing errands alone such as visiting a doctor's office or shopping? Answer Date of Assessment Author Status No 02/05/2024 6:22 PM Olivia Patiño R N Active documented as of this encounter Mental Status * Because of a physical, mental, or emotional condition, do you have serious difficulty concentrating, remembering, or making decisions? Answer Entry Date Author Status No 02/05/2024 6:22 PM Olivia Patiño R N Active documented in this encounter Plan of Treatment Upcoming Encounters Date Type Department Care Team (Late st Contact Info) Description 12/09/2024 12:48 PM CDT Hospital Encounter [facility] [address] [place] [address] Mario Hopper MD [facility] [address] [address] 12/09/2024 12:48 PM CDT Anesthesia Event [facility] [address] [place] [address] Parag Cifuentes CRNA [address]47 [place] [address] 12/09/2024 12:48 PM CDT - 12/09/2024 1:42 PM CDT Surgery [facility] [address] [place] [address] Mario Hopper MD [address] [facility] [place] [place] [address] EGD WITH BIOPSY 02/15/2025 9:20 AM BULK SUGAR HANDLER Laboratory Only [facility] Family & Internal [facility] [address] [place] [address] 02/23/2025 10:40 AM BULK SUGAR HANDLER Office Visit [facility] & Internal [facility] [address] [place] [address] [place] [address] [facility]. [address] [place] [address] Scheduled Procedures Name Priority Associated Diagnoses Date/Ti [...] documented as of this encounter Care Teams Clamp Truck Driver Relationship Specialty [place] [address] [facility] [address] [place] [address] PCP - General FAMILY PRACTICE 06/23/21 documented as of this encounter
--- OUTSIDE RECORDS SUMMARY | 2024-11-19 14:45 | XMS_ITS | Encounter Summary ---
Author Organization [facility] Address [facility] [place] [address] Care Team Providers Care Assembler Tractor Name Role Phone Romy Grayson MD Primary Care Provider [phone] Encounter Details Date Type Department Care Team (Late st Contact Info) Description 02/12/2023 Antavot Message Enc [facility] General Surgery [address], [facility] [address] [place] [address] Israel Smart MD [address] [place] [phone] Xray Social History Tobacco Use Types Packs/Day Years [...] Description 12/09/2024 12:48 PM CDT Hospital Encounter [facility] [address] [place] [address] Mario Hopper MD [address] [facility] [address] [place] [address] 12/09/2024 12:48 PM CDT Anesthesia Event [facility] [address] [place] [address] Parag Cifuentes, [facility] [address] [place] [address] 12/09/2024 12:48 PM CDT - 12/09/2024 1:42 PM CDT Surgery [facility] [address] [place] [address] Mario Hopper MD [address] [facility] [address] [place] [address] EGD WITH BIOPSY 02/15/2025 9:20 AM RESTAURANT KITCHEN AND SERVICE MANAGER Laboratory Only [facility] Family & Internal Medicine [address] [phone] 02/23/2025 10:40 AM RESTAURANT KITCHEN AND SERVICE MANAGER Office Visit [facility] Family & Internal [address] [phone] Romy Grayson MD [address] [place] [address]. [address] [place] [address] Scheduled Procedures Name Priority Associated Diagnoses Date/Ti [...] documented as of this encounter Care Teams Assembler Tractor Relationship Specialty [place] [address] [address] [place] [address] PCP - General FAMILY PRACTICE 06/23/21 documented as of this encounter
--- OUTSIDE RECORDS SUMMARY | 2024-11-19 14:45 | XMS_ITS | Encounter Summary ---
Author Organization [facility] Address [facility]6 [place] [address] Care Team Providers Care Malt House Supervisor Name Role Phone Romy Grayson MD Primary Care Provider [phone] Encounter Details Date Type Department Care Team (Late st Contact Info) Description 08/02/2021 ZoomFortht Message Enc [facility] Medical Group Family & Internal Medicine [facility] [address] [place] [phone] Romy Grayson MD [address] [place] [address]. [address] [place] [address] Back pain Social History Tobacco Use Types Packs/Day [...] Description 12/09/2024 12:48 PM CDT Hospital Encounter [facility] [address] [place] [address] Mario Hopper MD [address] [facility] [address] [place] [address] 12/09/2024 12:48 PM CDT Anesthesia Event [facility] [address] [place] [address] Parag Cifuentes, [facility] [address] [place] [address] 12/09/2024 12:48 PM CDT - 12/09/2024 1:42 PM CDT Surgery [facility] [address] [place] [address] Mario Hopper MD [address] [facility] [address] [place] [address] EGD WITH BIOPSY 02/15/2025 9:20 AM FISH GRADER Laboratory Only [facility] Family & Internal [address] [phone] 02/23/2025 10:40 AM FISH GRADER Office Visit [facility] Family & Internal [facility] [place] [place] [address] [place] [phone] [place] [address] [facility]. [address] [place] [address] Scheduled Procedures Name Priority Associated Diagnoses Date/Ti me EGD WITH BIOPSY Right upper quadrant abdominal pain Change in bowel habits 12/09/2024 12:48 PM CDT COLONOSCOPY WITH BIOPSY Right upper quadrant abdominal pain Change in bowel habits 12/09/2024 12:48 PM CDT documented as of this encounter Visit Diagnoses Diagnosis Chronic left-sided low back pain without sciatica- Primary Right upper quadrant abdominal pain Abdominal pain, right upper quadrant Change in bowel habits Other symptoms involving digestive system documented in this encounter Additional Health Concerns Assessment Noted Time PHQ-9 Depression Total Score: 16 022 8:33 AM CDT documented as of this encounter Care Teams Malt House Supervisor Relationship Specialty [place] [address] [facility] [address] [place] [address] PCP - General FAMILY PRACTICE 06/23/21 documented as of this encounter
--- OUTSIDE RECORDS SUMMARY | 2024-11-19 14:45 | XMS_ITS | Encounter Summary ---
Author Organization [facility] Address [facility] [place] [address] Care Team Providers Care Sales Representative Uniforms Name Role Phone Romy Grayson MD Primary Care Provider [phone] Encounter Details Date Type Department Care Team (Late st Contact Info) Description 07/06/2021 Xylo, Inct Message Enc [facility] Medical Group Family & Internal Medicine [facility] [address] [place] [phone] Romy Grayson MD [address] [place] [address]. [address] [place] [address] Allergy test Social History Tobacco Use Types Packs/Day Years [...] suspected to have Coronavirus/COVID-19? No / Unsure 07/03/2021 8:16 AM CDT documented as of this encounter Plan of Treatment Upcoming Encounters Date Type Department Care Team (Late st Contact Info) Description 12/09/2024 12:48 PM CDT Hospital Encounter [facility] [address] [place] [address] Mario Hopper MD [address] [facility] [address] [place] [address] 12/09/2024 12:48 PM CDT Anesthesia Event [facility] [address] [place] [address] Parag Cifuentes [facility] [address] [place] [address] 12/09/2024 12:48 PM CDT - 12/09/2024 1:42 PM CDT Surgery [facility] [address] [place] [address] Mario Hopper MD [address] [facility] [address] [place] [address] EGD WITH BIOPSY 02/15/2025 9:20 AM LUMBER STICKER Laboratory Only [facility] Family & Internal [address] [phone] 02/23/2025 10:40 AM LUMBER STICKER Office Visit [facility] Family & Internal [facility] [address] [place] [phone] [place] [address] [facility]. [address] [place] [address] Scheduled Procedures Name Priority Associated Diagnoses Date/Ti [...] Noted Time PHQ-9 Depression Total Score: 16 07/03/ 022 8:33 AM CDT documented as of this encounter Care Teams Sales Representative Uniforms Relationship Specialty [place] [address] [address] [place] [address] PCP - General FAMILY PRACTICE 06/23/21 documented as of this encounter
--- OUTSIDE RECORDS SUMMARY | 2024-11-19 14:45 | XMS_ITS | Encounter Summary ---
Author Organization [facility] Address Pending [facility] to [facility] [place] [address] Care Team Providers Care Straight Line Press Setter Name Role Phone Romy Grayson MD Primary Care Provider [phone] Encounter Details Date Type Department Care Team (Late st Contact Info) Description 11/06/2024 Apps & Zertst Message Enc [facility] Medical Group General Surgery - [place] [address] [place] [address], [address] [place] [address] Mario Hopper MD [address] [place] [address] [address] Meds Social History Tobacco Use Types Packs/Day Years [...] materials from doctor or pharmacy Never 02/17/2024 [facility] Utilities Answer Date Recorded In the past 12 months has e [employer], gas, oil, or water company threatened to [...] any time in the past 12 m [facility], were you homeless or living in a alf (including now)? No 02/07/2024 Comments No Sex [...] Assessment Author Status No 02/05/2024 6:22 PM TRAUMA REGISTRAR Olivia Wallace, R N Active * Do [...] Assessment Author Status No 02/05/2024 6:22 PM TRAUMA REGISTRAR Olivia Wallace, R N Active documented as of this encounter Mental Status * Because of a physical, mental, or emotional condition, do you have serious difficulty concentrating, remembering, or making decisions? Answer Entry Date Author Status No 02/05/2024 6:22 PM Olivia Patiño, R N Active documented in this encounter Plan of Treatment Upcoming Encounters Date Type Department Care Team (Late st [facility] Info) Description 12/09/2024 12:48 PM CDT Hospital Encounter [facility] [address] [place] [address] Mario Hopper MD [address] [place] [address] DR [address] [place] [address] 12/09/2024 12:48 PM CDT Anesthesia Event [facility] [address] [place] [address] Parag Cifuentes, [facility] [address] [place] [address] 12/09/2024 12:48 PM CDT - 12/09/2024 1:42 PM CDT Surgery [facility] [address] [place] [address] Mario Hopper MD 4550 [facility] [address] [address] EGD WITH BIOPSY 02/15/2025 9:20 AM TRAUMA REGISTRAR Laboratory Only [facility] Family & Internal [facility] [address] [place] [address] 02/23/2025 10:40 AM TRAUMA REGISTRAR Office Visit [facility] Family & Internal [facility] [address] [place] [address] [place] [address] [facility] [address] [place] [address] Scheduled Procedures Name Priority Associated Diagnoses Date/Ti [...] documented as of this encounter Care Teams Straight Line Press Setter Relationship Specialty [place] [address] [employer] [place] [address] PCP - General FAMILY PRACTICE 06/23/21 documented as of this encounter
--- OUTSIDE RECORDS SUMMARY | 2024-11-19 14:45 | XMS_ITS | Encounter Summary ---
Author Organization [facility] Address [facility] [place] [address] Care Team Providers Care [employer] Engine Mechanic Name Role Phone Romy Grayson MD Primary Care Provider [phone] Encounter Details Date Type Department Care Team (Late st Contact Info) Description 11/07/2021 Plethorat Message Enc [facility] Family & Internal Medicine [address] [phone] Romy Grayson MD [address] [place] [address]. [address] [place] [id number] Testing Social History Tobacco Use Types Packs/Day Years [...] Risk Indicated 11/09/2021 8:43 AM CDT Kevin Esquivel RN Active * [place] Suicide Severity Rating Scale (Screener/Recent Self-Report) Question Answer Date of Assessment Author Status 1. Wish to be (Past 1 Month) No 11/09/2021 8:43 AM CDT Jenna Esquivel RN Ac tive 2. Non-Specific Active Suicidal Thoughts (Past 1 Month) No 11/09/2021 8:43 AM CDT Jenna Esquivel RN Ac tive 6. Suicidal Behavior (Lifetime) No 11/09/2021 8:43 AM CDT Jenna Esquivel RN Ac tive documented as of this encounter Plan of Treatment Upcoming Encounters Date Type Department Care Team (Late st Contact Info) Description 12/09/2024 12:48 PM CDT Hospital Encounter [facility] [address] [place] [address] Mario Hopper MD [address] [place] [address] [place] [address] 12/09/2024 12:48 PM CDT Anesthesia Event [facility] [id number] [place] [address] Parag Cifuentes, [address] [address] 12/09/2024 12:48 PM CDT - 12/09/2024 1:42 PM CDT Surgery [facility] [address] [place] [address] Mario Hopper MD [address] [address] [place] [address] [place] [id number] EGD WITH BIOPSY 02/15/2025 9:20 AM [employer] Laboratory Only [facility] Family & Internal Medicine - [place] [address] [place] [address] 02/23/2025 10:40 AM [employer]ICE [employer] Office Visit [facility] Family & Internal Medicine [facility] [address] [place] [address] [place] [address] [facility]. [address] [place] [phone] Scheduled Procedures Name Priority Associated Diagnoses Date/Ti [...] Noted Time PHQ-9 Depression Total Score: 16 04/ 022 8:33 AM CDT documented as of this encounter Care Teams Farm Machinery Engine Mechanic Relationship Specialty [place] [address] [address] [place] [address] PCP - General FAMILY PRACTICE 06/23/21 documented as of this encounter
--- OUTSIDE RECORDS SUMMARY | 2024-11-19 14:46 | XMS_ITS | Clinical Summary ---
Author Organization [facility] Address [address] [place] [address] Care Team Providers Care Pillowcase Folder Name Role Phone Romy Kapoor MD Primary Care Provider [phone] Allergies Active Allergy Reactions Criticality Noted Date Comments Aspirin Itching,Palpitations Medium 10/17/2020 Penicillin V Anaphylaxis High 10/17/2020 Penicillins Other (see comment) High 11/05/2023 Medications albuterol sulfate HFA 108 (90 Base) MCG/ACT inhalerIndications :shortness of breath Inhale 2 puffs into the lungs every 6 (six) hours as needed for Wheezing or Shortness of breath. 18 g 5 3 Active pantoprazole EC (PROTONIX) 40 MG tabletIndications: Nausea Take 1 tablet (40 mg total) by mouth 2 (two) times a day. 60 tablet 5 Active ondansetron (ZOFRAN-ODT) 4 MG disintegrating tabletIndications: Vomiting and diarrhea Take 1 tablet (4 mg total) by mouth every 8 (eight) hours as needed for Nausea. 20 tablet 5 Active ondansetron (ZOFRAN) 8 MG tabletIndications: Right upper quadrant abdominal pain,Change in bowel habits Take 1 tablet (8 mg total) by mouth every 8 (eight) hours as needed for Nausea (To take with colon prep for nausea). 4 tablet 5 Active phentermine (ADIPEX-P) 37.5 MG capsuleIndications :Prediabetes,Class 2 obesity due to excess calories without serious comorbidity with body mass index (BMI) of 35.0 to 35.9 in adult Take 1 capsule (37.5 mg total) by mouth before breakfast. 30 capsule 2 5 Active Na sulfate-K sulfate-Mg sulfate (SUPREP BOWEL PREP KIT) 17.5-3.13-1.6 GM/177ML SolutionIndication s:Right upper quadrant abdominal pain Take 177 mLs by mouth every 12 (twelve) hours. Pour ONE (1) 6-ounce bottle of SUPREP liquid into the mixing container. Add cool drinking water to the 16-ounce line on the container and mix. Have the patient Drink: ALL the liquid in the container, then drink two (2) more 16-ounce containers of water over the next 1 hour. 354 mL Active Active Problems Problem Noted Date Diagnosed Date History of cerebrovascular accident (CVA) in rossana lthood 10/20/2024 Overview (10/20/2024): 2019- mri brain showed small right cerebellar infarct Fatty liver 10/20/2024 Renal cyst, right 10/20/2024 Overview (10/20/2024): Per MRI abdomen 2024- Benign Bosniak type II renal cyst. This requires no follow-up Rheumatoid arthritis involvi ng multiple sites with positive rheumatoid factor ([facility]/HCC HHS/HCC) 10/20/2024 Overview (10/20/2024): Per rheum note Positive RF, but was negatiev on Rpt, (neg CCP) Right upper quadrant abdominal pain 09/24/2024 Change in bowel habits 09/24/2024 Arthralgia of wrist 09/03/2024 Asymptomatic microscopic hematuria 08/20/2024 Gait disturbance 02/21/2024 S/P total hip arthroplasty 02/06/2024 Primary osteoarthritis of left hip 01/20/2024 Assessment & Plan (01/20/2024 4:34 PM CDT): We discussed the risks, benefits, and alternatives. The only thing proven to slow the progression of osteoarthritis is weight loss. Every pound lost relieves 4 to 6 pounds of stress across the hip. We discussed formal physical therapy to help with flexibility, mobility, and strength. We discussed TENS units. Nonsteroidal anti-inflammatories as well as Tylenol and pain medication and their side effects. We discussed steroid injection. We discussed eventual total hip arthroplasty. She feels like she's failed conservative therapy, non-steroidal anti- inflammatories, oral steroids, activity modification, and therapy. Pain is progressively getting worse and interfering with activities of daily living. All questions are answered. She does understand the increased risks of dislocation and leg length inequality. She is wanting to proceed with a more definitive treatment. We'll try to get her set up for 02/05/24. Prediabetes 11/21/2023 Constipation, unspecified constipation type 09/30 Foreign body in bladder, initial encounter 05/15 Bladder calculi 05/15/2023 Ureteral calculi 05/15/2023 Bladder stones 10/11/2022 Overview (10/11/2022): Added automatically from request for surgery [id number] Recurrent nephrolithiasis 10/11/2022 Overview (10/11/2022): Added automatically from request for surgery [id number] Trigeminal neuralgia 12/21/2021 Lactose intolerance 12/21/2021 Precordial chest pain 10/06/2021 Assessment & Plan (10/06/2021 11:36 AM CDT): Her chest pain seems noncardiac in nature. She recently lost her and I think will defer work-up at this time especially since she had negative cardiac enzymes and no significant EKG changes. Coronary artery disease invo lving paimiut coronary artery of paimiut heart without angina pectoris 10/06/2021 Assessment & Plan (10/06/2021 11:37 AM CDT): Her cardiac cath report from [facility] mentions a 30% stenosis. I will obtain CDs of her angiograms. Hyperlipemia, mixed 10/06/2021 Assessment & Plan (10/06/2021 11:38 AM CDT): She has significantly elevated LDL and triglycerides. She has been on lipid- lowering therapy in the past. She does not appear to have coronary artery calcifications at this time, but she should consider lipid-lowering therapy in the future. Femoral acetabular impingement 09/27/2021 Assessment & Plan (09/27/2021 9:34 AM CDT): Although not [id number] on x-ray. Positive impingement with internal and external rotation of the hip. Mild cam but minimal pincer noted on x-ray. Patient has failed nonsteroidal anti-inflammatories, activity modification, [place] and tramadol. Pain is interfering with her activities of daily living. Recommend MR arthrogram of the hip rule out labral tear BMI 35.0-35.9,adult 09/27/2021 Assessment & Plan (09/27/2021 9:34 AM CDT): We discussed the adverse effects of weight on osteoarthritis of the knee. For every 1 pound loss, 4 to 6 pounds of stress is relieved from the knee slightly less at the hip and slightly more at the ankle. We discussed low carbohydrate diet to help with weight loss. 80% of weight loss is through diet. Resolved Problems Problem Noted Date Diagnosed Date Resolved Date Right upper quadrant abdominal pain 09/24/2024 10/20/2024 Change in bowel habits 09/24/202410/20 Dark stools 10/25/2023 10/20/2024 Loose stools 10/25/2023 10/20/2024 Encounters Date Type Department Care Team Description 11/10/2024 MyChart Message Enc [facility] General Surgery [address], [address] [place] [phone] Nay[facility] Provider Colonoscopy prep instructions 11/09/2024 Orders Only [facility] Surgery [address], [address] [place] [address] Mario Hopper MD 11/06/2024 MyChart Message Enc [facility] Surgery [facility] [address], [address] [place] [phone] Mario Hopper MD Meds 10/20/2024 Telephone [facility] Family & Internal [address] [address] Romy Kapoor MD Follow Up Call 10/19/2024 4:00 PM CDT Office Visit [facility] Internal [address] [address] Romy Kapoor MD Follow Up 10/19/2024 Travel 10/08/2024 Results Follow-Up [facility] Internal [address] [address] Anjelica Delacruz, CLIENT ENGAGEMENT SPECIALIST-BC MRI ABD WWO CON 10/01/2024 12:00 PM CDT - 10/01/2024 11:59 PM CDT Hospital Encounter [address] [id number] Haven Soni SOLAR ENERGY SALES SPECIALIST Discharge Disposition: Home or Self Care (Routine Discharge) 10/01/2024 Travel 10/01/2024 Telephone [facility] Internal [address] [address] Romy Kapoor MD Medication 09/30/2024 MyChart Message Enc [facility] Internal [address] [address] Romy Kapoor MD Test 09/24/2024 Orders Only [facility] General [address], [address] [address] Mario Hopper MD 09/24/2024 Prep for Procedure [facility] General [address], [facility] [address] [place] [address] Mario Hopper MD 09/23/2024 MyChart Message Enc [facility] Family & Internal Medicine [facility] [address] [place] [address] Romy Kapoor MD MRI 09/22/2024 Telephone [facility] Surgery [facility] [address] [facility] [address] [facility], [address] [place] [address] Mario Hopper MD Question 09/22/2024 MyChart Message Enc [facility] Family & Internal [facility] [address] [place] [address] [address]acruz FNP-LINDA Ct 09/16/2024 9:13 AM CDT - 09/16/2024 11:59 PM CDT [place] [address] [place] [address] Anjelica Delacruz CLIENT ENGAGEMENT SPECIALIST-BC Discharge Disposition: Home or Self Care (Routine Discharge) 09/16/2024 Travel 09/15/2024 7:48 AM CDT - 09/15/2024 11:59 PM CDT Hospital Encounter [facility] [address] [place] [address] Anjelica Delacruz CLIENT ENGAGEMENT SPECIALIST-BC Discharge Disposition: Home or Self Care (Routine Discharge) 09/14/2024 1:20 PM CDT Office Visit [facility] General Surgery [facility] [address], [address] [place] [address] Mario Hopper MD Consult (Abdominal pain and bloody stools x 2 weeks/) 09/14/2024 Travel 09/09/2024 Results Follow-Up [facility] Internal [address] [address] Anjelica Delacruz CLIENT ENGAGEMENT SPECIALIST-BC PROTIME/INR, VENOUS, HEPATIC FUNCTION PANEL, US ABD LIMITED, CT ABD+PEL WWO CON 09/09/2024 Results Follow-Up [facility] [address] [place] [address] Anjelica Delacruz FNP-BC HEPATITIS PANEL,ACUTE 09/08/2024 2:24 PM CDT - 09/08/2024 11:59 PM CDT Hospital Encounter [facility] [address] [place] [address] Anjelica Delacruz FNP-BC Discharge Disposition: Home or Self Care (Routine Discharge) 09/08/2024 10:51 AM CDT - 09/08/2024 2:32 PM CDT Emergency [facility] Emergency Room [address] [place] [address] Ean Pederson MD Urinary Symptoms Discharge Disposition: Home or Self Care (Routine Discharge) 09/08/2024 Orders Only [facility] [address] [place] [address] Anjelica Delacruz FNP-BC 09/08/2024 Travel 09/07/2024 4:19 PM CDT - 09/07/2024 11:59 PM CDT Hospital Encounter [facility] Laboratory [address] [place] [address] Anjelica Delacruz FNP-BC Discharge Disposition: Home or Self Care (Routine Discharge) 09/07/2024 4:00 PM CDT Laboratory Only [facility] Family Internal [address] [phone] Anjelica Delacruz FNP-BC 09/07/2024 3:20 PM CDT Office Visit [facility] [address] [phone] Anjelica Delacruz FNP-BC TCM (F/u er results) 09/07/2024 Telephone [facility] Internal [address] [phone] Romy Kapoor MD Question 09/07/2024 Travel 09/03/2024 2:42 PM CDT - 09/03/2024 5:58 PM CDT Emergency [facility] Emergency Room [address] [place] [address] Reji Armando MD Vomiting; Abdominal Pain; Diarrhea Discharge Disposition: Home or Self Care (Routine Discharge) 09/03/2024 2:40 PM CDT Office Visit [facility] Internal [address] [address] Vicenta Vásquez PA Gi Problem (pt states diverticulitis attack, started yesterday around 4pm. /) 09/03/2024 Travel 08/24/2024 MyChart Message Enc [address] [address] Romy Kapoor MD Labs 08/20/2024 9:40 AM CDT Office Visit [facility] Internal [address] [address] Romy Kapoor MD Follow Up (Pt c/o sweet smelling urine and sweat smelling like urine. ) 08/20/2024 Results Follow-Up [address] [address] Romy Kapoor MD HEMOGLOBIN, GLYCOSYLATED, URINALYSIS AUTO DIP 08/20/2024 Travel from Last 3 Months Immunizations Immunization Administration Dates Next Due Influenza Adult (Generic) 12/24/2019,01/04/2017 Pneumococcal (Prevnar 13) 12/24/2019 Family History Medical History Relation Comments Thyroid Brother Breast Cancer Daughter Cancer Father Syage 4 pancreat ic Diabetes Father Heart Attack Father Heart Disease Father Open Heart Father cardiac stent Father Heart Attack Maternal Grandfather Cancer Maternal Grandmother lung Arthritis Mother Heart Attack Mother Heart Disease Mother Hypertension Mother Vision loss Mother cardiac stents Mother Relation Status Comments Brother Alive Daughter Alive Father Alive Maternal Grandfather Maternal Grandmother Mother Alive Social History Tobacco Use Types Packs/Day Years Used Date Smoking Tobacco: Never Smokeless Tobacco: Never Tobacco Cessation:Counseling Given: No Comments:na Alcohol Use Standard Drinks/Week Comments Not [...] materials from doctor or pharmacy Never 02/17/2024 [facility] Utilities Answer Date Recorded In the past 12 months has th e [employer], gas, oil, or water [employer] threatened to shut off services in your [...] any time in the past 12 m [facility], were you homeless or living in a group home (including now)? No 02/07/2024 Comments No Sex and Gender Information Value Date Recorded Sex Assigned at Female 08/20/2024 9:35 AM CDT Legal Sex Female 6:46 PM CDT Gender Identity Female 09/07/2024 3:10 PM CDT Sexual Orientation Not on file Last Filed Vital Signs Vital Sign Reading Time Taken Comments Blood Pressure 140/86 10/19/2024 4:29 PM CDT Pulse 91 10/19/2024 4:05 PM CDT Temperature 36.3 C (97.4 F) 10/19/2024 4:05 PM CDT Respiratory Rate 16 10/19/2024 4:05 PM CDT Oxygen Saturation 98% 10/19/2024 4:05 PM CDT Inhaled Oxygen Concentration - - Weight 83.9 kg (185 lb) 11/05/2024 12:05 PM CDT Height 157.5 cm (5' 2) 11/05/2024 12:05 PM CDT Body Mass Index 33.84 11/05/2024 12:05 PM CDT Plan of Treatment Upcoming Encounters Date Type Department Care Team (Late st Contact Info) Description 12/09/2024 12:48 PM CDT Hospital Encounter [facility] [address] [place], [place] [phone] Mario Hopper MD [facility] [place] [address] 12/09/2024 12:48 PM CDT Anesthesia Event [facility] [address] [place] [address] Parag Cifuentes, ROUGHENER [address] [place] [address] 12/09/2024 12:48 PM CDT - 12/09/2024 1:42 PM CDT Surgery [facility] [address] [place] [address] Mario Hopper MD [address] [facility] [address] MORE[place] [address] [place] [address] EGD WITH BIOPSY 02/15/2025 9:20 AM OUTSOLE HANDLER Laboratory Only [facility] Family & Internal [facility] [address] [place] [address] 02/23/2025 10:40 AM OUTSOLE HANDLER Office Visit [facility] Internal [facility] [address] [place] [address] [place] [address] [facility] [place], [place] [phone] Scheduled Procedures Name Priority Associated Diagnoses Date/Ti me EGD WITH BIOPSY Right upper quadrant abdominal pain Change in bowel habits 12/09/2024 12:48 PM CDT COLONOSCOPY WITH BIOPSY Right upper quadrant abdominal pain Change in bowel habits 12/09/2024 12:48 PM CDT Health Maintenance Due Date Last Done Comments ASCVD Statin 1966 Colorectal Cancer Screening Colonoscopy (10 Years) 1966 Annual Physical 1969 DTaP, Tdap and Td Vaccines ( 1 - Tdap) 1985 Hepatitis B Vaccines (1 of 3 - 19+ 3-dose series) 1985 Zoster Vaccines (1 of 2) 2016 Pneumococcal Vaccine: 50+ Years (2 of 2 - PPSV23) 02/18/2020 12/24/2019 COVID-19 Vaccine ( - 2023-2 5 season) 2023 Mammogram Screening 10/28/2025 10/29/2023 PHQ-2 (Physician [place]) Completed 09/07/2024 Hepatitis C Completed 09/08/2024, 11/23/2020 Meningococcal B Vaccine Aged Out No l onger eligible based on patient's age to complete this topic Meningococcal Vaccine Aged Out No napoleon mallory eligible based on patient's age to complete this topic RSV Immunizations Under 20 Months Aged Out No longer eligible b ased on patient's age to complete this topic Goals Goal Patient Goal Type Associated Problems Recent Progress Patient-Stated? Author Autogenerat ed Goal Care Plan Autogenerated Problem No Lyndsey Ashley, RN Medical Devices Implanted Type Area Moth Exterminator Device Identifier Shelf Expiration Date Model / Serial / Lot Delivery System On-Q Pain Pump 5 - [id number] Implanted:Qt y: 1 on 02/05/2024 by Juarez Bagley DO at [facility] Catheter Implant Left: Hip [employer] 09/01/2025 [id number] / / [id number] Cup Acetabular Depuy 48mm - [id number] Implanted:Qt y: 1 on 02/05/2024 by Juarez Bagley DO at [facility] Hip Components Left: Acetabulum DEPUY [id number] 11/29/2032 [id number] / / [id number] Head Depuy Femoral Delta 32mm +1 - [id number] Implanted:Qt y: 1 on 02/05/2024 by Juarez Bagley DO at [facility] Hip Components Left: Hip DEPUY [id number] 09/28/2028 [id number] / / [id number] Liner Depuy Acetabular Altrx Neut 32 X 48 - [id number] Implanted:Qt y: 1 on 02/05/2024 by Juarez Bagley DO at [facility] Hip Components Left: Acetabulum DEPUY [id number] 07/29/2025 [id number] / / [id number] Pump Pain On-Q 400ml - [id number] Implanted:Qt y: 1 on 02/05/2024 by Juarez Bagley DO at [facility] Pump [employer] [id number] / / [id number] Screw Depuy Cancellous Bone 6.5mm X 25mm - [id number] Implanted:Qt y: 1 on 02/05/2024 by Juarez Bagley DO at [facility] Screw Left: Hip DEPUY [id number] 09/29/2031 [id number] / / [id number] Actis Duofix Hip Prosthesis Femoral Stem Implanted:Qt y: 1 on 02/05/2024 by Juarez Bagley DO at [facility] Left: Femur [employer] - A MAG & MAG 12/29/2033 [id number] / / [id number] Procedures Procedure Name Priority Date/Time Associated Diagnosis Comments MRI ABD WWO CON Routine 10/01/2024 1:24 PM CDT Kidney lesion, paimiut, right CT ABD+PEL WWO CON Routine 09/16/2024 9: 26 AM CDT Abnormal finding on diagnostic imaging of right kidney US ABD LIMITED Routine 09/15/2024 8:39 AM CDT Hepatomegaly HEPATITIS PANEL,ACUTE Routine 09/08/2024 11:40 AM CDT Hepatomegaly URINALYSIS, AUTO, COMPLETE STAT 09/08/2024 11:40 AM CDT LIPASE STAT 09/08/2024 11:40 AM CDT COMPREHENSIVE METABOLIC PANEL STAT 09/08/2024 11:40 AM CDT CBC W/DIFF AUTOMATED STAT 09/08/2024 11:40 AM CDT COLLECTION VENOUS BLOOD VENIPUNCTURE Routine 09/07/2024 3:40 PM CDT Hepatomegaly HEPATIC FUNCTION PANEL Routine 3:39 PM CDT Hepatomegaly PROTHROMBIN TIME, VENOUS Routine 09/07/2024 3:[address] ABD+PEL W CON STAT 09/03/2024 4:02 PM CDT XR CHEST PORTABLE STAT 09/03/2024 4:0 1 PM CDT URINALYSIS, AUTO, COMPLETE STAT 09/03/2024 3:30 PM CDT ECG 12-LEAD Routine 09/03/2024 3:08 PM CDT LIPASE STAT 09/03/2024 2:50 PM CDT LACTIC ACID W REFLEX (SEPSIS) STAT 09/03/2024 2:50 PM CDT TROPONIN, QUANT STAT 09/03/2024 2:50 PM CDT COMPREHENSIVE METABOLIC PANEL STAT 09/03/2024 2:50 PM CDT CBC W/DIFF AUTOMATED STAT 09/03/2024 2:50 PM CDT COLLECT.CAPILLARY (FNGR,HEEL,EAR) Routine 08/20/2024 9:37 AM CDT Prediabetes URINALYSIS AUTO DIP Routine 08/20/2024 Abnormal urine odor HEMOGLOBIN, GLYCOSYLATED Routine 08/20/2024 Prediabetes MG SCREENING W JOSE DELLA DIGI Routine 10/29/2023 8:34 AM CDT Screening mammogram for breast cancer from Last 3 Months or Most Recently Relevant to Health Maintenance Results * MRI ABD WWO CON (10/01/2024 1:24 PM CDT) Anatomical Region Laterality Modality Abdomen Magnetic Resonan ce 10/08/2024 11:4 8 AM CDT Addenda Addendum by Donald Kaufman MD on 10/09/2024 10:41 AM CDT [facility] [address] [place] [address] Addendum: Procedure(s): MRI ABD WWO CON Date of service: 10/01/2024 12:47 PM Provided clinical information: 58 years, Female, hypodensity right kidney Procedure and materials: Multiplanar multisequence MRI of the abdomen is performed. Examination is performed before and after intravenous contrast. 20 mL of Dotarem Comparison studies: September 16, 2024 Findings: Spleen, adrenals are unremarkable. No enlarged retroperitoneal lymph nodes are present. Visualized aorta is unremarkable. Gallbladder is absent. The spleen is unremarkable. Scattered hepatic stereotactic changes are present within the liver. No focal hepatic lesion is present. The LEFT kidney is unremarkable. Within the interpolar RIGHT kidney there is a area of T2 hyperintensity that is T1 hypointense and does not enhance after intravenous contrast. This measures approximately 1.2 cm in dimension. There is a small thin approximately 1 to 2 mm septation that is present. There is a suggestion of minimal enhancement that is present within the septation. This is consistent with a benign Bosniak type II renal cyst. This requires no follow-up. IMPRESSION: 1. Benign Bosniak type II renal cyst. This requires no follow-up. Hepatic steatosis. Referred By: HAVEN SONI Interpreted By: Donald Kaufman MD, 10/09/2024 10:34 AM Impressions 10/08/2024 12:00 PM CDT IMPRESSION: 1. Benign Bosniak type II renal cyst. This requires no follow-up. Hepatic steatosis. Referred By: HAVEN SONI Interpreted By: Dnoald Kaufman MD, 10/08/2024 11:48 AM Narrative 10/08/2024 12:00 PM CDT [facility] [address] [place] [address] Procedure(s): MRI ABD WWO CON Date of service: 10/01/2024 12:47 PM Provided clinical information: 58 years, Female, hypodensity right kidney Procedure and materials: Multiplanar multisequence MRI of the abdomen is performed. Examination is performed before and after intravenous contrast. 20 mL of Dotarem Comparison studies: September 16, 2024 Findings: Spleen, adrenals are unremarkable. No enlarged retroperitoneal lymph nodes are present. Visualized aorta is unremarkable. Gallbladder is unremarkable. No evidence of cholelithiasis or cholecystitis. The spleen is unremarkable. Scattered hepatic stereotactic changes are present within the liver. No focal hepatic lesion is present. The LEFT kidney is unremarkable. Within the interpolar RIGHT kidney there is a area of T2 hyperintensity that is T1 hypointense and does not enhance after intravenous contrast. This measures approximately 1.2 cm in dimension. There is a small thin approximately 1 to 2 mm septation that is present. There is a suggestion of minimal enhancement that is present within the septation. This is consistent with a benign Bosniak type II renal cyst. This requires no follow-up. Procedure Note Donald Kaufman MD - 10/08/2024 [facility] [address] [place] [address] Procedure(s): MRI ABD WWO CON Date of service: 10/01/2024 12:47 PM Provided clinical information: 58 years, Female, hypodensity rightkidney Procedure and materials: Multiplanar multisequence MRI of the abdomen isperformed. Examination is performed before and after intravenous contrast.20 mL of Dotarem Comparison studies: September 16, 2024 Findings: Spleen, adrenals are unremarkable. No enlarged retroperitoneal lymph nodesare present. Visualized aorta is unremarkable. Gallbladder isunremarkable. No evidence of cholelithiasis or cholecystitis. The spleenis unremarkable. Scattered hepatic stereotactic changes are present withinthe liver. No focal hepatic lesion is present. The LEFT kidney isunremarkable. Within the interpolar RIGHT kidney there is a area of T2 hyperintensitythat is T1 hypointense and does not enhance after intravenous contrast.This measures approximately 1.2 cm in dimension. There is a small thinapproximately 1 to 2 mm septation that is present. There is a suggestionof minimal enhancement that is present within the septation. This isconsistent with a benign Bosniak type II renal cyst. This requires nofollow-up. IMPRESSION: 1. Benign Bosniak type II renal cyst. This requires no follow-up. Hepaticsteatosis. Referred By: HAVEN SONI Interpreted By: Donald Kaufman MD, 10/08/2024 11:48 AM us Haven Soni SOLAR ENERGY SALES SPECIALIST MRI Edited Resul t - Final * CT ABD+PEL WWO CON (09/16/2024 9:26 AM CDT) Anatomical Region Laterality Modality Abdomen Computed Tomogra phy 09/22/2024 1:08 PM CDT Impressions 09/22/2024 1:14 PM CDT IMPRESSION: 1. There is a small area of hypoattenuation within the interpolar right kidney posteriorly. This is not well seen on the precontrast images. On delayed excretory phase images this measures approximately 27 Hounsfield units and during cortical medullary phase this measures 46 Hounsfield units. This is not definitively characterized on this examination. This could relate to an area of cyst formation with some adjacent scarring. Further evaluation with MRI is recommended. 2. Diffuse sigmoid bowel wall thickening is present. This may relate to chronic inflammatory or infectious change. Scattered colonic diverticulosis is present. 3. Within the jejunum there is a low attenuating area that is present. This measures approximately 1.2 cm. This is not definitively identified on the prior examination and may relate to undigested bowel contents. Ordered By: ANJELICA DELACRUZ Interpreted By: Donald Kaufman MD, 09/22/2024 1:08 PM Narrative 09/22/2024 1:14 PM CDT [facility] [address] [facility] [place] [address] Procedure(s): CT ABD+PEL WWO CON Date of service: 09/16/2024 9:14 AM Provided clinical information: 58 years, Female, indeterminant hypodensity 12 mm Rt kidney Procedure and materials: Helical images of the abdomen and pelvis are obtained from superior to the diaphragm to inferior to the pubic symphysis. Examination performed before and after intravenous contrast. 75 mL Isovue-370. A dose lowering technique was used for this procedure, which may include, but is not limited to, dose reduction technique, automated exposure control, iterative reconstruction, ALARA (As Low As Reasonably Achievable), or Image Gently techniques. Comparison studies: September 03, 2024. Findings: CT abdomen and pelvis: Lung Bases: No pleural effusions or consolidations. Adrenals:Normal. Spleen:No splenomegaly. Gallbladder and Biliary system:Prior cholecystectomy. Pancreas:Unremarkable. Liver:Unremarkable. Kidneys:Within the interpolar right kidney posteriorly there is an area of cortical thinning. Deep to this area is a small area of hypoattenuation. This is not well seen on the precontrast images. On delayed phase images this measures approximately 27 Hounsfield units and during cortical medullary phase this measures 46 Hounsfield units. Further evaluation with MRI is recommended. This could relate to an area of cyst formation with some adjacent scarring. This is not definitively characterized on this examination. No right or left nephrolithiasis. No hydronephrosis. Bowel:Diffuse sigmoid bowel wall thickening is present. This may relate to chronic inflammatory or infectious change. Scattered colonic diverticulosis is present. No small bowel dilatation is present. Visualized appendix is unremarkable. Within the jejunum there is a low attenuating area that is present. This measures approximately 1.2 cm. This is not definitively identified on the prior examination and may relate to undigested bowel contents. Aorta and Retroperitoneum:No enlarged lymph nodes. Aorta is not aneurysmal. Pelvic Organs:Urinary bladder is unremarkable. Uterus is absent. Bone/Musculoskeletal: No aggressive osseous lesions. Free fluid: None Procedure Note Donald Kaufman MD - 09/22/2024 [facility] [address] [place] [address] Procedure(s): CT ABD+PEL WWO CON Date of service: 09/16/2024 9:14 AM Provided clinical information: 58 years, Female, indeterminanthypodensity 12 mm Rt kidney Procedure and materials: Helical images of the abdomen and pelvis areobtained from superior to the diaphragm to inferior to the pubicsymphysis. Examination performed before and after intravenous contrast. 75mL Isovue-370. A dose lowering technique was used for this procedure, which may include,but is not limited to, dose reduction technique, automated exposurecontrol, iterative reconstruction, ALARA (As Low As ReasonablyAchievable), or Image Gently techniques. Comparison studies: September 03, 2024. Findings: CT abdomen and pelvis: Lung Bases: No pleural effusions or consolidations. Adrenals:Normal. Spleen:No splenomegaly. Gallbladder and Biliary system:Prior cholecystectomy. Pancreas:Unremarkable. Liver:Unremarkable. Kidneys:Within the interpolar right kidney posteriorly there is an area ofcortical thinning. Deep to this area is a small area of hypoattenuation.This is not well seen on the precontrast images. On delayed phase imagesthis measures approximately 27 Hounsfield units and during corticalmedullary phase this measures 46 Hounsfield units. Further evaluation withMRI is recommended. This could relate to an area of cyst formation withsome adjacent scarring. This is not definitively characterized on thisexamination. No right or left nephrolithiasis. No hydronephrosis. Bowel:Diffuse sigmoid bowel wall thickening is present. This may relate tochronic inflammatory or infectious change. Scattered colonic diverticulosis is present. No small bowel dilatation is present. Visualized appendix isunremarkable. Within the jejunum there is a low attenuating area that is present. Thismeasures approximately 1.2 cm. This is not definitively identified on theprior examination and may relate to undigested bowel contents. Aorta and Retroperitoneum:No enlarged lymph nodes. Aorta is notaneurysmal. Pelvic Organs:Urinary bladder is unremarkable. Uterus is absent. Bone/Musculoskeletal: No aggressive osseous lesions. Free fluid: None IMPRESSION: 1. There is a small area of hypoattenuation within the interpolar rightkidney posteriorly. This is not well seen on the precontrast images. Ondelayed excretory phase images this measures approximately 27 Hounsfieldunits and during cortical medullary phase this measures 46 Hounsfieldunits. This is not definitively characterized on this examination. Thiscould relate to an area of cyst formation with some adjacent scarring.Further evaluation with MRI is recommended. 2. Diffuse sigmoid bowel wall thickening is present. This may relate tochronic inflammatory or infectious change. Scattered colonicdiverticulosis is present. 3. Within the jejunum there is a low attenuating area that is present.This measures approximately 1.2 cm. This is not definitively identified onthe prior examination and may relate to undigested bowel contents. Ordered By: ANJELICA DELACRUZ Interpreted By: Donald Kaufman MD, 09/22/2024 1:08 PM Anjelica Delacruz CLIENT ENGAGEMENT SPECIALIST-BC CT Final Re sult * US ABD LIMITED (09/15/2024 8:39 AM CDT) Anatomical Region Laterality Modality Abdomen Ultrasound 09/15/2024 4:59 PM CDT Impressions 09/15/2024 5:04 PM CDT IMPRESSION: 1. Hepatomegaly with fatty infiltration of the liver. 2. Cholecystectomy. 3. Lesions seen in right kidney on CT cannot be delineated on this ultrasound.. Due to its irregular border on the CT, follow-up with MRI the kidneys with and without contrast. Ordered By: ANJELICA DELACRUZ Interpreted By: Igor Goodwin, 09/15/2024 4:59 PM Narrative 09/15/2024 5:04 PM CDT [facility] [address] [place] [address] IMAGING STUDIES: US ABD LIMITED DATE: 09/15/2024 7:57 AM COMPARISON STUDIES: CT abdomen of 09/03/2024 CLINICAL HISTORY: Hepatomegaly, not elsewhere classified. Cholecystectomy FINDINGS: Cholecystectomy. Moderate fatty infiltration of the liver without focal mass... Hepatomegaly with cc dimension of 21 cm. No adjacent ascites. Hepatic and portal veins are patent.. Common bile duct measures.6.3 mm. Right kidney .8 x 4.8 x 4.5 cm.. No focal mass or hydronephrosis.. Subtle low density seen within the lateral mid right kidney on CT cannot be delineated on this ultrasound Partially visualized pancreas without gross abnormality. Procedure Note Rajan Goodwin MD - 09/15/2024 [facility] [address] [place] [id number] IMAGING STUDIES: US ABD LIMITED DATE: 09/15/2024 7:57 AM COMPARISON STUDIES: CT abdomen of 09/03/2024 CLINICAL HISTORY: Hepatomegaly, not elsewhere classified.Cholecystectomy FINDINGS: Cholecystectomy. Moderate fatty infiltration of the liver without focal mass...Hepatomegaly with cc dimension of 21 cm. No adjacent ascites. Hepatic and portal veins are patent.. Common bile duct measures.6.3 mm. Right kidney bcquhpao60.8 x 4.8 x 4.5 cm.. No focal mass orhydronephrosis.. Subtle low density seen within the lateral mid rightkidney on CT cannot be delineated on this ultrasound Partially visualized pancreas without gross abnormality. IMPRESSION: 1. Hepatomegaly with fatty infiltration of the liver. 2. Cholecystectomy. 3. Lesions seen in right kidney on CT cannot be delineated on thisultrasound.. Due to its irregular border on the CT, follow-up with MRI thekidneys with and without contrast. Ordered By: ANJELICA DELACRUZ Interpreted By: Igor Goodwin, 09/15/2024 4:59 PM us Anjelica Delacruz CLIENT ENGAGEMENT SPECIALIST- ULTRASOUND Final Re sult * (ABNORMAL) URINALYSIS, AUTO, COMPLETE (09/08/2024 11:40 AM CDT) Only the most recent of2 resultswithin the time period is included. COLOR (U) YELLOW 09/08/2024 12:44 PM CDT [facility] TRANSPARENCY HAZY 09/08/2024 12:44 PM CDT [facility] SPECIFIC GRAVITY (U) 1.020 1.000 - 1.030 09/08/2024 12:44 PM CDT [facility] U PH 7.0 5.0 - 9.0 09/08/2024 12:44 PM CDT [facility] LEUKOCYTES (U) 3+(A) NEGATIVE 09/08/2024 12:44 PM CDT [facility] NITRITES NEGATIVE NEGATIVE 09/08/2024 12:44 PM CDT [facility] PROTEIN RANDOM (U) 1+(A) NEGATIVE 09/08/2024 12:44 PM CDT [facility] GLUCOSE (U) NEGATIVE NEGATIVE 09/08/2024 12:44 PM CDT [facility] KETONES MG/DL (U) NEGATIVE NEGATIVE 09/08/2024 12:44 PM CDT [facility] BILIRUBIN (U) NEGATIVE NEGATIVE 09/08/2024 12:44 PM CDT [facility] BLOOD (U) 3+(A) NEGATIVE 09/08/2024 12:44 PM CDT [facility] WBC/HPF 50-100 0 - 5 /HPF 09/08/2024 12:44 PM CDT [facility] RBC/HPF 5-10 0 - 5 /HPF 09/08/2024 12:44 PM CDT [facility] EPI/HPF RARE /HPF 09/08/2024 12:44 PM CDT [facility] BACTERIA (U) FEW /HPF 09/08/2024 12:44 PM CDT [facility] URINE SPECIMEN OBTAINED BY CLEAN CATCH PROCEDURE / Unknown 09/08/2024 11:40 AM CDT us Ean Pederson MD URINE ORDERABLES F inal Result [facility] [address] [place] [address], [place] [phone] * (ABNORMAL) COMPREHENSIVE METABOLIC PANEL (09/08/2024 11:40 AM CDT) Only the most recent of2 resultswithin the time period is included. GLUCOSE 104(H) 70 - 99 MG/DL 09/08/2024 12:01 PM CDT [facility] BUN 12 7 - 18 MG/DL 09/08/2024 12:01 PM [facility] CREATININE S/P/B 0.71 0.55 - 1.02 MG/DL 09/08/2024 12:01 PM [facility] SODIUM S/P/B 142 136 - 145 MMOL/L 09/08/2024 12:01 PM [facility] POTASSIUM S/P/B 4.1 3.5 - 5.1 MMOL/L 09/08/2024 12:01 PM [facility] CHLORIDE S/P/B 105 100 - 108 MMOL/L 09/08/2024 12:01 PM [facility] CO2 28.7 21 - 32 MMOL/L 09/08/2024 12:01 PM [facility] CALCIUM S/P/B 9.3 8.5 - 10.1 MG/DL 09/08/2024 12:01 PM [facility] BILIRUBIN TOTAL S/P/B 0.4 0.2 - 1.2 MG/DL 09/08/2024 12:01 PM [facility] TOTAL PROTEIN S/P/B 7.7 6.4 - 8.2 G/DL 09/08/2024 12:01 PM [facility] ALBUMIN S/P/B 4.1 3.4 - 5.0 G/DL 09/08/2024 12:01 PM [facility] AST 13(L) 15 - 37 U/L 09/08/2024 12:01 PM [facility] ALT 31 14 - 55 U/L 09/08/2024 12:01 PM [facility] ALKALINE PHOSPHATASE S/P/B 89 50 - 136 U/L 09/08/2024 12:01 PM [facility] ANION GAP 8.3 5 - 15 MMOL/L 09/08/2024 12:01 PM CDT [facility] BUN CREATININE RATIO 16.9 6 - 26 09/08/2024 12:01 PM CDT [facility] A/G RATIO 1.1 1.0 - 2.0 RATIO 09/08/2024 12:01 PM CDT [facility] GFR ESTIMATE >90 >90 ML/MIN/1.7 3 M2 09/08/2024 12:01 PM CDT [facility] Comment: NOTE: eGFR is not calculated for patients <18 years of age. This is an estimated GFR calculation using the new CKD EPI creatinine equation without race and so does not require a correction factor for race. This estimated GFR should not be used for calculating drug doses. 09/08/2024 11:4 0 AM CDT Ean Pederson MD LABORATORY Fi nal Result [facility] [address] [place] [address], [place] [phone] * HEPATITIS PANEL,ACUTE (09/08/2024 11:40 AM CDT) HEPATITIS B SURFACE AG NON-REACTI VE NON-REACTI VE 09/08/2024 10:32 PM CDT [facility] HEP B CORE IGM NON-REACTI VE NON-REACTI VE 09/08/2024 10:32 PM CDT [facility] HAV IGM NON-REACTI VE NON-REACTI VE 09/08/2024 10:32 PM CDT [facility] HEPATITIS C AB NON-REACTI VE NON-REACTI VE 09/08/2024 10:32 PM CDT [facility] 09/08/2024 11:4 0 AM CDT Anjelica Hollingsworth Braulio CLIENT ENGAGEMENT SPECIALIST- LABORATORY Final Re sult [facility] [address] [place] [address], [place] [phone] * (ABNORMAL) CBC W/DIFF AUTOMATED (09/08/2024 11:40 AM CDT) Only the most recent of2 resultswithin the time period is included. WBC 11.05(H) 4.4 - 11.0 x10'3/uL 09/08/2024 11:48 AM CDT [facility] RBC 4.61 4.50 - 5.10 x10'6/uL 09/08/2024 11:48 AM CDT [facility] HGB 14.0 12.3 - 15.3 G/DL 09/08/2024 11:48 AM CDT [facility] HCT 40.7 35.9 - 44.6 % 09/08/2024 11:48 AM CDT [facility] MCV 88.3 80.0 - 96.0 FL 09/08/2024 11:48 AM CDT [facility] MCH 30.4 25.3 - 30.9 PG 09/08/2024 11:48 AM CDT [facility] MCHC 34.4(H) 31.0 - 34.1 G/DL 09/08/2024 11:48 AM CDT [facility] RDW 13.2 12.4 - 15.1 % 09/08/2024 11:48 AM CDT [facility] PLT 398(H) 151 - 353 x10'3/uL 09/08/2024 11:48 AM CDT [facility] MPV 9.6 9.6 - 12.0 FL 09/08/2024 11:48 AM CDT [facility] RBC MORPHOLOGY NORMAL 09/08/2024 11:48 AM CDT [facility] PLT MORPH. NORMAL 09/08/2024 11:48 AM CDT [facility] WBC MORPHOLOGY NORMAL 09/08/2024 11:48 AM CDT [facility] LYMPHOCYTES % 16.4 15.8 - 45.0 % 09/08/2024 11:48 AM CDT [facility] NEUTROPHILS % 72.3(H) 42.1 - 71.9 % 09/08/2024 11:48 AM CDT [facility] MONOCYTES % 8.4 5.7 - 12.5 % 09/08/2024 11:48 AM CDT [facility] EOSINOPHILS 2.0 0.0 - 5.6 % 09/08/2024 11:48 AM CDT [facility] BASOPHILS 0.5 0.0 - 1.3 % 09/08/2024 11:48 AM CDT [facility] ABS. NEUTROPHILS 8.00(H) 1.40 - 6.00 x10'3/uL 09/08/2024 11:48 AM CDT [facility] IMMATURE GRANS % 0.4 0.0 - 0.5 % 09/08/2024 11:48 AM CDT [facility] ABS. LYMPHOCYTES 1.81 0.80 - 4.70 x10'3/uL 09/08/2024 11:48 AM CDT [facility] 09/08/2024 11:4 0 AM CDT us Ean Pederson MD LABORATORY Fi nal Result [facility] [address] [place] [address], * LIPASE (09/08/2024 11:40 AM CDT) Only the most recent of2 resultswithin the time period is included. Pathologist [facility] LIPASE 70 16 - 77 UNITS/L 09/08/2024 12:01 PM CDT [facility] 09/08/2024 11:4 0 AM CDT Ean Pederson MD LABORATORY Fi nal Result Performing Organization Address [facility] Co de Phone Number [facility] [address] [place] [address], [place] [phone] * PROTIME/INR, VENOUS (09/07/2024 3:39 PM CDT) [facility] PROTIME 10.8 9.1 - 12.4 SEC 09/07/2024 4:46 PM CDT [facility] INR 0.9 09/07/2024 4:46 PM CDT [facility] Comment: Recommend INR ranges for Oral Anticoagulant Therapy: Mechanical Cardiac Values 2.5-3.5 All others indication 2.0-3.0 09/07/2024 3:39 PM CDT Anjelica Delacruz [facility] LABORATORY Final Re sult Performing Organization Address [facility]/ZIP Co de Phone Number [facility] [address] [place] [address], [place] [phone] * HEPATIC FUNCTION PANEL (09/07/2024 3:39 PM CDT) Pathologist [facility] TOTAL PROTEIN S/P/B 7.5 6.4 - 8.2 G/DL 09/07/2024 5:23 PM CDT [facility] ALBUMIN S/P/B 4.2 3.4 - 5.0 G/DL 09/07/2024 5:23 PM CDT [facility] BILIRUBIN TOTAL S/P/B 0.5 0.2 - 1.2 MG/DL 09/07/2024 5:23 PM CDT [facility] BILIRUBIN DIRECT S/P/B 0.1 0.0 - 0.20 MG/DL 09/07/2024 5:23 PM CDT [facility] BILIRUBIN INDIRECT S/P/B 0.4 0.0 - 0.9 MG/DL 09/07/2024 5:23 PM CDT [facility] ALKALINE PHOSPHATASE S/P/B 89 50 - 136 U/L 09/07/2024 5:23 PM CDT [facility] AST 15 15 - 37 U/L 09/07/2024 5:23 PM CDT [facility] ALT 30 14 - 55 U/L 09/07/2024 5:23 PM CDT [facility] A/G RATIO 1.3 1.0 - 2.0 RATIO 09/07/2024 5:23 PM CDT [facility] 09/07/2024 3:39 PM CDT Anjelica Delacruz [facility]- LABORATORY Final Re sult [facility] [address] [place] [address], * CT ABD+PEL W IV CON ONLY (09/03/2024 4:02 PM CDT) Anatomical Region Laterality Modality Abdomen Computed Tomogra phy 09/03/2024 4:57 PM CDT Impressions 09/03/2024 5:09 PM CDT IMPRESSION: 1. Enlarged liver. 2. Indeterminant finding in the right kidney. 3. Single segment of mildly enlarged left upper quadrant small bowel is of uncertain significance with no associated findings. Referred By: Interpreted By: Vitaly Astorga MD, 09/03/2024 4:57 PM Narrative 09/03/2024 5:09 PM CDT [facility] [address] [place] [id number] EXAM: CT ABD+PEL W CON DATE: 09/03/2024 COMPARISON: 10/11/2022 INDICATION: Epigastric pain TECHNIQUE: Postcontrast imaging with 75 cc intravenous Isovue-370. A dose lowering technique was used for this procedure, which may include, but is not limited to, dose reduction technique, automated exposure control, iterative reconstruction, ALARA (As Low As Reasonably Achievable), or Image Gently techniques. FINDINGS: Lungs are clear. Normal enhancement of the liver, spleen, adrenal glands, and pancreas. The liver is enlarged with a length of 22 cm. Normal spleen size. Cholecystectomy with normal CBD diameter. There are segmental areas of minimal dilation of the right ureter. No identifiable stone. Possible peristalsis. Mild prominence of the right renal pelvis is unchanged. In the right kidney, there is an indeterminant hypodensity measuring about [address] were noncontrast and this finding is not visualized. Density measurements are not compatible with simple cyst. Higher detail would require multiphase CT or MRI on a nonemergent basis. Ultrasound is unlikely to further characterize its appearance. Normal enhancement of the left kidney. No obstruction. With artifact from a left hip prosthesis, normal urinary bladder. Hysterectomy. Mild diverticulosis in the proximal descending colon. Normal appendix. There is a single segment of mildly distended small bowel in the ligament of Treitz region. Diameter is 3.4 cm. No wall thickening or adjacent inflammation. Normal appearance of a moderately gas-distended stomach. Mild thoracolumbar degenerative disc disease. Procedure Note Vitaly Astorga MD - 09/03/2024 [facility] [address] [place] [id number] EXAM: CT ABD+PEL W CON DATE: 09/03/2024 COMPARISON: 10/11/2022 INDICATION: Epigastric pain TECHNIQUE: Postcontrast imaging with 75 cc intravenous Isovue-370. A dose lowering technique was used for this procedure, which may include,but is not limited to, dose reduction technique, automated exposurecontrol, iterative reconstruction, ALARA (As Low As ReasonablyAchievable), or Image Gently techniques. FINDINGS: Lungs are clear. Normal enhancement of the liver, spleen,adrenal glands, and pancreas. The liver is enlarged with a length of 22cm. Normal spleen size. Cholecystectomy with normal CBD diameter. There are segmental areas of minimal dilation of the right ureter. Noidentifiable stone. Possible peristalsis. Mild prominence of the rightrenal pelvis is unchanged. In the right kidney, there is an indeterminanthypodensity measuring about [address] were noncontrast and thisfinding is not visualized. Density measurements are not compatible withsimple cyst. Higher detail would require multiphase CT or MRI on anonemergent basis. Ultrasound is unlikely to further characterize itsappearance. Normal enhancement of the left kidney. No obstruction. With artifactfrom a left hip prosthesis, normal urinary bladder. Hysterectomy. Mild diverticulosis in the proximal descending colon. Normal appendix.There is a single segment of mildly distended small bowel in the ligamentof Treitz region. Diameter is 3.4 cm. No wall thickening or adjacentinflammation. Normal appearance of a moderately gas-distended stomach. Mild thoracolumbar degenerative disc disease. IMPRESSION: 1. Enlarged liver. 2. Indeterminant finding in the right kidney. 3. Single segment of mildly enlarged left upper quadrant small bowel isof uncertain significance with no associated findings. Referred By: Interpreted By: Vitaly Astorga MD, 09/03/2024 4:57 PM Reji Armando MD CT Final Result * XR CHEST PORTABLE (09/03/2024 4:01 PM CDT) Anatomical Region Laterality Modality Chest Radiographic Lala ging 09/03/2024 4:55 PM CDT Impressions 09/03/2024 4:57 PM CDT IMPRESSION: Mild enlargement of the heart. Referred By: Interpreted By: Vitaly Astorga MD, 09/03/2024 4:55 PM Narrative 09/03/2024 4:57 PM CDT [facility] [address] [facility] [place] [address] EXAM: XR CHEST PORTABLE DATE: 09/03/2024 1552 hours Comparison 11/09/2021 INDICATION: Epigastric pain TECHNIQUE: One view FINDINGS: Mild enlargement of the heart. Normal pulmonary vessel size. The lungs are clear. No acute bone findings. Procedure Note Vitaly Astorga MD - 09/03/2024 [facility] [address] [place] [address] EXAM: XR CHEST PORTABLE DATE: 09/03/2024 1552 hours Comparison 11/09/2021 INDICATION: Epigastric pain TECHNIQUE: One view FINDINGS: Mild enlargement of the heart. Normal pulmonary vessel size.The lungs are clear. No acute bone findings. IMPRESSION: Mild enlargement of the heart. Referred By: Interpreted By: Vitaly Astorga MD, 09/03/2024 4:55 PM us Reji Armando MD GENERAL IMAGING Final Result * ECG 12 lead (09/03/2024 3:08 PM CDT) 09/03/2024 3:08 PM CDT Narrative [facility] ([facility]) RAD - 09/07/2024 4:[address] [facility] Test Date: 2024-09-03 Pat Name: JC GONZALEZ Department: 85 Room: EXAM 101 Gender: Female Director Check: : 1965 Requested By: REJI ARMANDO Order Number: [id number] Reading MD: Franky Snider Measurements Intervals [place] Rate: 67 P: 41 OK: 171 QRS: 7 QRSD: 83 T: 5 QT: 398 QTc: 421 Interpretive Statements SINUS RHYTHM WITH SINUS ARRHYTHMIA Compared to ECG 01/27/2024 13:07:19 Myocardial infarct finding no longer present Procedure Note Franky Snider MD - 09/07/2024 [facility] Test Date: 2024-09-03 Pat Name: JC GONZALEZ Department: 85 Room: EXAM 101 Gender: Female Director Check: : 1965 Requested By: REJI ARMANDO Order Number: [id number] Reading MD: Franky Snider Measurements Intervals [place] Rate: 67 P: 41 [place]: 171 QRS: 7 QRSD: 83 T: 5 QT: 398 QTc: 421 Interpretive Statements SINUS RHYTHM WITH SINUS ARRHYTHMIA Compared to ECG 01/27/2024 13:07:19 Myocardial infarct finding no longer present Reji Armando MD ECG ORDERABLES Final Result Performing Organization Address City/[facility]/ZIP Co de Phone Number [facility] ([facility]) RAD * LACTIC ACID W REFLEX (SEPSIS) (09/03/2024 2:50 PM CDT) Pathologist [facility] LACTIC ACID VENOUS 1.9 0.4 - 2.0 MMOL/L 09/03/2024 3:29 PM CDT [facility] 09/03/2024 2:50 PM CDT Reji Armando MD LABORATORY Final Result Performing Organization Address City/[facility]/ZIP Co de Phone Number [facility] [address] [place] [address], [place] [phone] * TROPONIN, QUANT (09/03/2024 2:50 PM CDT) Pathologist [facility] TROPONIN I HIGH SENSITIVITY 12 0 - 50 ng/L 09/03/2024 3:28 PM CDT [facility] Comment: HIGH DOSES OF BIOTIN, TROPONIN-SPECIFIC AUTOANTIBODIES, AND ANTIBODY THERAPY CONTAINING HAMA MAY INTERFERE WITH THIS TEST RESULT. CORRELATION TO CLINICAL HISTORY AND PRESENTATION RECOMMENDED. 09/03/2024 2:50 PM CDT Reji Armando MD LABORATORY Final Result Performing Organization Address City/[facility]/ZIP Co de Phone Number [facility] [address] [place] [address], * HEMOGLOBIN, GLYCOSYLATED (08/20/2024) HGB A1C 5.7 % -[address] [facility] 08/20/2024 Romy Kapoor MD LABORATORY Final Result Performing Organization Address [facility] Co de Phone Number -[phone], [place] [address] [place] [address], * (ABNORMAL) URINALYSIS AUTO DIP (08/20/2024) COLOR (U) YELLOW YELLOW [id number], [place] TRANSPARENCY CLEAR CLEAR MG-[id number], [place] GLUCOSE (U) NEGATIVE NEGATIVE MG/DL [id number], [place] BILIRUBIN (U) NEGATIVE NEGATIVE MG-[address], [place] KETONES MG/DL (U) NEGATIVE NEGATIVE MG/DL [id number] SPECIFIC GRAVITY (U) >=1.030 1.001 - 1.035 MG-[id number], [facility] BLOOD (U) MODERATE (Non Hemolyzed, Intact, About 50 rbc/uL)(A) NEGATIVE [id number], [facility] U PH 5.5 5.0 - 9.0 MG-[id number], [place] PROTEIN (U) NEGATIVE NEGATIVE mg/dL [id number], [place] UROBILINOGEN 0.2 0.2 - 1.0 EU/dL = mg/dL [id number], [place] NITRITES NEGATIVE NEGATIVE MG/DL MG-[id number], [place] LEUKOCYTES (U) NEGATIVE NEGATIVE MG-[address], [place] URINE SPECIMEN OBTAINED BY CLEAN CATCH PROCEDURE / Unknown 08/20/2024 Romy Kapoor MD URINE ORDERABLES Final Result [id number], [place] [address] [place] [address], * MG SCREENING W JOSE DELLA DIGI (10/29/2023 8:34 AM CDT) Anatomical Region Laterality Modality Breast Bilateral Mammography 10/29/2023 10:5 8 AM CDT Impressions 10/29/2023 10:58 AM CDT IMPRESSION: No suspicious mammographic findings. Recommendation: 1. Routine Screening, Bilateral Assessment: ACR BI-RADS 2 - BENIGN FINDING(S) Ordered By: ROMY KAPOOR Interpreted By: Grayson Meza, 10/29/2023 10:58 AM Narrative 10/29/2023 10:58 AM CDT Examination: Screening bilateral mammogram Exam Date/Time: 10/29/2023 8:22 AM Clinical history: No current complaints. Comparison: None available, reestablishment of baseline Technique: Digital screening mammography of both breasts was performed. Breast tomosynthesis acquisitions were obtained and reviewed. This study was read with the assistance of a computer-aided detection system. Tissue density: There are scattered areas of fibroglandular density. Findings: No suspicious masses, malignant appearing calcifications, skin thickening or other abnormalities are present. us Romy Kapoor MD MAMMO Final Result from Last 3 Months or Most Recently Relevant to Health Maintenance Additional Health Concerns Active Problems Noted Date Diagnosed Date Autogenerated Problem 11/17/2024 Insurance [facility] Advance Directives * Full Code (Latest Code Status on File) Date Activated Date Inactivated Comments 02/09/2024 4:18 PM 02/17/2024 3:46 PM * Full Code Date Activated Date Inactivated Comments 02/05/2024 12:56 PM 02/07/2024 4:11 PM Care Teams Pillowcase Folder Relationship Specialty [place] [address] [facility] [place]. [address] [place] [address] PCP - General FAMILY PRACTICE 06/23/21
--- OUTSIDE RECORDS SUMMARY | 2024-11-19 14:46 | XMS_ITS | Clinical Summary ---
Author Organization [facility] Address [address] [place] [address] Care Team Providers Care Diesel Engine Ii Pipe Fitter Name Role Phone Jose G Patel MD Unavailable [phone] Zuly Flores MD Primary Care Provider [phone] Source Comments [facility] Affiliates and Associated Physician Practices is amultiple site organization consisting of ambulatory clinics and hospital sitesin [place], [place], [place] and [place]. This disclosure is being madepursuant to the Care Everywhere program and may not contain all information available regarding this patient. Last updated 17.[facility] Allergies Active Allergy Reactions Criticality Noted Date Comments Aspirin Unknown Hydrocodone Itching 12/13/2020 Morphine Itching 06/17/2017 Penicillins Unknown Tolerates keflex Medications * Be aware that medications may not be up to date on this document. Alwaysverify current medications with the patient. albuterol HFA (PROVENTIL;CHANCE TOLIN;PROAIR) 108 (90 Base) MCG/ACT inhaler Inhale 2 (two) puffs by mouth every 4 hours as needed 1 Active adalimumab (HUMIRA PEN) 40 MG/0.4ML injection Inject 0.4 mL subcutaneously every 14 days 0.8 mL 5 1 Active oxyCODONE-acet aminophen (PERCOCET) 5-325 MG tablet Take 1 (one) tablet by mouth every 6 hours as needed for Pain 30 tablet 1 Active docusate sodium (COLACE) 100 MG capsule Take 1 (one) capsule by mouth once daily 60 capsule 2 1 Active ALPRAZolam (Xanax) 0.5 MG tablet 2 Active amitriptyline (Elavil) 25 MG tablet Take 1 (one) tablet by mouth nightly as needed Active atorvastatin (Lipitor) 40 MG tablet 2 Active morphine IR (MSIR) 15 MG tablet Take 1 (one) tablet by mouth every 6 hours as needed pain 3 Active HYDROcodone-ac etaminophen (Stratford) 5-325 MG tablet Take 1 (one) tablet by mouth every 6 hours as needed Active traMADol (Ultram) 50 MG tablet Take 1 (one) tablet by mouth every 8 hours as needed For pain. 3 Active Active Problems Problem Noted Date Diagnosed Date Lactose intolerance 12/21/2021 10/09/2022 Coronary artery disease invo lving [place] coronary artery of [place] heart without angina pectoris 10/06/2021 10/09/2022 Overview (10/09/2022): Last Assessment & Plan: Her cardiac cath report from [facility] mentions a 30% stenosis. I will obtain CDs of her angiograms. Femoral acetabular impingement 09/27/2021 0 10/09/2022 Overview (10/09/2022): Last Assessment & Plan: Although not [id number] on x-ray. Positive impingement with internal and external rotation of the hip. Mild cam but minimal pincer noted on x-ray. Patient has failed nonsteroidal anti-inflammatories, activity modification, Stratford and tramadol. Pain is interfering with her activities of daily living. Recommend MR arthrogram of the hip rule out labral tear Interstitial cystitis 08/08/2021 10/09/2022 Migraines 08/08/2021 10/09/2022 Precordial chest pain 08/08/2021 10/09/2022 Overview (10/09/2022): Last Assessment & Plan: Her chest pain seems noncardiac in nature. She recently lost her and I think will defer work-up at this time especially since she had negative cardiac enzymes and no significant EKG changes. 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, unspecified 07/06/2021 10/09/2022 Overview (10/09/2022): Last Assessment & Plan: Condition: stable Follow up in: three months with PCP Hepatitis C infection 07/03/2021 10/09/2022 Carpal tunnel syndrome 11/23/2020 Hyperglycemia 08/15/2018 Cerebellar disorder 08/01/2018 10/09/2022 Rheumatoid arthritis 08/01/2018 10/09/2022 Overview (10/09/2022): Last Assessment & Plan: Condition: stable Not currently taking any medications because stopped accepting Vazquez dual option Follow up in: three months with PCP Cerebral infarction due to u nspecified occlusion or stenosis of unspecified cerebral artery 06/13/2018 Fibromyalgia 07/11/2017 DVT (deep venous thrombosis) 12/25/2016 Chronic cough 08/24/2016 Insomnia 08/24/2016 Fatigue 07/06/2016 PVCs (premature ventricular contractions) 2016 Anxiety 02/19/2008 Asthma 02/19/2008 Gastroesophageal reflux disease 02/19/2008 Steatosis of liver 02/19/2008 Erosion of bladder suspension mesh Family History Medical History Relation Name Comments CAD (Coronary Artery Disease) Father Diabetes - Type 2 Father Cancer - Lung Maternal Grandmother CAD (Coronary Artery Disease) Mother Diabetes - Type 2 Mother Relation Name Status Comments Father Maternal Grandmother Mother Social History Tobacco Use Types Packs/Day Years Used Date Smoking Tobacco: Never Smokeless Tobacco: Never Tobacco Cessation:Counseling Given: Not Answered Alcohol Use Standard Drinks/Week Comments No 0 (1 standard drink = 0.6 oz pur e alcohol) Comments No Sex and Gender Information Value Date Recorded Sex Assigned at Not on file Legal Sex Female 5:40 AM LURE MAKER Gender Identity Not on file Sexual Orientation Not on file 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 Not on file Not on file Not on file Last Filed Vital Signs Vital Sign Reading Time Taken Comments Blood Pressure 130/80 10/09/2022 9:21 AM CDT Pulse 87 01/31/2021 10:45 AM CDT Temperature 35.9 C (96.7 F) 10/09/2022 9:21 AM CDT Respiratory Rate 16 01/31/2021 10:45 AM CDT Oxygen Saturation 98% 01/31/2021 10:45 AM CDT Inhaled Oxygen Concentration - - Weight 78.5 kg (173 lb) 10/09/2022 9:21 AM CDT Height 160 cm (5' 3) 10/09/2022 9:21 AM CDT Body Mass Index 30.65 10/09/2022 9:21 AM CDT Plan of Treatment Health Maintenance Due Date Last Done Comments COLOGUARD (AGES 45-75) - COLON CA SCREENING 1966 COLON MONITORING 1966 COLONOSCOPY - COLON CA SCREENING 1966 CT COLONOGRAPHY - COLON CA SCREENING 1966 Colorectal Cancer Screening 1966 FIT - COLON CA SCREENING 1966 FLEX SIG - COLON CA SCREENING 1966 MAMMOGRAM 1966 MEDICARE AWV 12 MONTHS 1966 HIV SCREENING 1981 DTAP/TDAP/TD VACCINES (1 - Tdap) 1985 HEPATITIS B VACCINE (1 of 3 - 19+ 3-dose series) 1985 PNEUMOCOCCAL VACCINE 50+ (1 of 2 - PCV) 1985 PAP SMEAR 11/28/1987 ZOSTER VACCINE (1 of 2) 2016 COVID-19 VACCINE (1 - season) 2023 DEPRESSION SCREENING 04/01/2024 INFLUENZA VACCINE (#1) 2024 12/24/2019, 2016 SCREENING FOR DIABETES 10/07/2025 , 10/07/2022, 08/09/2021, Additional history exists HEPATITIS C SCREENING Completed 07/03/2021, 021 HIB VACCINE Aged Out No longer eligi ble based on patient's age to complete this topic HPV VACCINE Aged Out No longer eligi ble based on patient's age to complete this topic MENINGOCOCCAL (Group B) VACCINE SHARED DECISION-MAKING Aged Out No longer eligible based on patient's age to complete this topic MENINGOCOCCAL GROUPS A/C/Y/W VACCINE Aged Out No longer eligible based on patient's age to complete this topic Procedures Procedure Name Priority Date/Time Associated Diagnosis Comments BASIC METABOLIC PANEL (CALCIUM TOTAL) Routine 01/31/2021 4:23 AM CDT Erosion of bladder suspension mesh, initial encounter HEPATITIS SCREEN ACUTE Routine 11/23/2020 10:31 AM CDT Rheumatoid arthritis, seropositive, multiple sites High risk medications (not anticoagulants) long-term use from Last 3 Months or Most Recently Relevant to Health Maintenance Results * (ABNORMAL) BASIC METABOLIC PANEL (CALCIUM TOTAL) (01/31/2021 4:23 AM CDT) Glucose 117(H) 70 - 105 mg/dL 01/31/2021 5:36 AM CDT [facility] Sodium 139 136 - 145 mmol/L 01/31/2021 5:36 AM CDT [facility] Potassium 3.9 3.5 - 5.1 mmol/L 01/31/2021 5:36 AM CDT [facility] Chloride 105 98 - 107 mmol/L 01/31/2021 5:36 AM CDT [facility] CO2 24 23 - 31 mmol/L 01/31/2021 5:36 AM CDT [facility] Calcium 8.9 8.4 - 10.4 mg/dL 01/31/2021 5:36 AM CDT [facility] Anion Gap 10 8 - 18 mmol/L 01/31/2021 5:36 AM CDT [facility] BUN 12 9.8 - 20.1 mg/dL 01/31/2021 5:36 AM CDT [facility] Creatinine 0.71 0.57 - 1.11 mg/dL 01/31/2021 5:36 AM CDT [facility] eGFR by MDRD >60 >60 mL/min/1.7 3m2 01/31/2021 5:36 AM CDT [facility] eGFR by MDRD >60 >60 mL/min/1.7 3m2 01/31/2021 5:36 AM CDT [facility] Blood BLOOD SPECIMEN / Unknown Lab Venipuncture / Unknown 01/31/2021 4:23 AM CDT 01/31/2021 5:17 AM CDT Belkis Elliott MD LAB - CHEMISTRY ORDERABLES Jennifer l Result [facility] [address] [place] [address] * HEPATITIS SCREEN ACUTE (11/23/2020 10:31 AM CDT) Hepatitis A Virus Antibody IgM Negative Negative [facility] INSURANCE BILL Hepatitis B Virus Surface Antigen Negative Negative [facility] INSURANCE BILL Hepatitis B Core Virus Antibody IgM Negative Negative [facility] INSURANCE BILL Hepatitis C Antibody <0.1 0.0 - 0.9 s/co ratio [facility] INSURANCE BILL Comment: Negative: < 0.8 Indeterminate: 0.8 - 0.9 Positive: > 0.9 . The CDC recommends that a positive HCV antibody result be followed up with a HCV Nucleic Acid Amplification test ([id number]). FASTING Blood BLOOD SPECIMEN / Unknown 11/23/2020 10:31 AM CDT 11/23/2020 Narrative Resulting Agency Comment [facility] [address] [facility] [id number] Jose G Patel MD LAB - CHEMISTRY ORDERABLES Final Result Performing Organization Address City/[facility] Co de Phone Number [facility] INSURANCE BILL [address] [place] [address] from Last 3 Months or Most Recently Relevant to Health Maintenance Insurance MEDICARE MEDICARE MEDICAID - OUT OF STATE Care Teams Diesel Engine Ii Pipe Fitter Relationship Specialty Start Date End Date Zuly Flores MD [address] [place] [address] PCP - General Family Medicine 11/07/21 Jose G Patel MD [address] [place] [id number] Mechanical Integrity Engineer Rheumatology 12/17/18
[2024-11-19 15:20] VITALS: BP 127/95; PULSE 79; RESP 18; O2SAT 96
--- NOTE | 2024-11-19 15:36 | ED_ITS ---
HPI - Fall General Chief Complaint: Fall Stated Complaint: fall, right thumb pain, facial pain Time Seen by Provider: 11/19/24 15:29 patient tripped while walking, landed face down, complaining of possible concussion, headache, facial pain, neck pain, right hand and right wrist pain and right knee pain. Patient drove herself to the emergency room. Last tetanus shot less than 5 years ago. History of Present Illness HPI Narrative: patient tripped while walking, landed face down, complaining of possible loss of consciousness, headache, facial pain, neck pain, right hand and right wrist pain and right knee pain. Patient drove herself to the emergency room. Last tetanus shot less than 5 years ago. Related Data Home Medications ?Medication ?Instructions ?Recorded ?Confirmed ?Last Taken ?Type hydrocodone 5 mg-acetaminophen 325 tablet PO 11/27/23 11/27/23 Unknown History mg tablet Allergies Allergy/AdvReac Type Severity Reaction Status Date / Time aspirin Allergy Mild JITTERY Verified 11/19/24 14:56 Penicillins Allergy Unknown UNKNOWN Verified 11/19/24 14:56 Review of Systems Review of Systems: All systems reviewed & are unremarkable except as noted in HPI and below PMFSH Past Medical History Medical History (Updated 11/19/24 @ 17:27 by Chet Prince MD) Pancreatitis Asthma Cerebellar stroke Interstitial cystitis Rheumatoid arthritis Family History Family History (Updated 07/29/24 @ 15:10 by Amber Fleming [facility]) Mother Heart problem Diabetes mellitus Father Malignant neoplasm of pancreas Sibling Diabetes mellitus Social History Social History (Updated 11/27/23 @ 14:29 by Kirstin Graham [facility]) Social History: never smoker Smoking status: Never smoker Second hand tobacco smoke exposure: Yes Alcohol intake: never Substance use: never Substance use type: does not use Do You Feel Safe in your Home?: Yes Lack of Transportation: No Lack of Food: Never True Current Housing: I Have Housing Concerned About Future Housing: No Difficulty Paying Gas/Electric Bills: No Difficulty Paying for Meds: No Currently Unemployed: No Education: Associate Degree Difficulty w/ Childcare or Family Care: No Living arrangements: with family Occupation/Education: other Additional occupation/education comments: disabled Gender identity (if verbalized by the patient): Female Exam Narrative: General appearance: Well-developed, well-nourished Skin: Normal color Head: Normocephalic, nontraumatic Eyes: Clear conjunctiva ENT: Oropharynx normal, minor chips of the front incisor, upper, ears normal, abrasion across the nasal bridge, tenderness Neck: Supple, nontender Chest and respiratory: Airway patent, no respiratory distress, no accessory muscle use Heart: Regular rate/rhythm Abdomen: Soft, nontender, no organomegaly, quiet bowel sounds Vascular: Normal peripheral pulses, normal capillary refill. Musculoskeletal: abrasion of the right knee anteriorly, good range of motion, diffuse tenderness right hand and wrist dorsally, slight limited range of motion, no deformity, no swelling, no bruises Neurologic: Alert and oriented ?3, PROGRAM COUNSELOR is normal as tested, no gross motor deficit Course Vital Signs Vital signs: Vital Signs Temperature 36.8 C 11/19/24 14:41 Pulse Rate 95 11/19/24 14:41 Respiratory Rate 16 11/19/24 14:41 Blood Pressure 139/79 11/19/24 14:41 Pulse Oximetry 96 11/19/24 14:41 Oxygen Delivery Room Air 11/19/24 14:41 Temperature 36.8 C 11/19/24 14:41 Pulse Rate 79 11/19/24 15:20 Respiratory Rate 18 11/19/24 15:20 Blood Pressure 127/95 H 11/19/24 15:20 Pulse Oximetry 96 11/19/24 15:20 Oxygen Delivery Room Air 11/19/24 14:41 MDM - Fall MDM Narrative Medical decision making narrative: differential diagnosis as below Differential Diagnosis Differential diagnosis: Likely fracture of wrist, concussion with loss of consciousness, concussion without loss of consciousness and other ( facial bone fracture, concussion, contusion, abrasion) Imaging Data Radiologist's impression: Impressions Head CT 11/19/24 15:59 IMPRESSION: 1. No acute intracranial hemorrhage. No mass effect. 2. Probable chronic ischemic white matter change. Head/Cervical Spine/Facial Bones CT 11/19/24 16:03 IMPRESSION: 1. No compression fracture in the cervical spine. 2. Straightening of the normal cervical lordosis. 3. Grade 1 anterolisthesis of C3 on C4 and C4 on C5. 4. Moderate joint space narrowing at the C5-C6 and C6-C7 levels. 5. Indeterminant 1.3 cm low-density lesion in the left thyroid lobe. A thyroid ultrasound is recommended. If symptoms persist or worsen, consider an MRI of the cervical spine for further assessment. Hand X-Ray 11/19/24 16:11 IMPRESSION: 1. 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 No acute osseous abnormality. Wrist X-Ray 11/19/24 16:11 IMPRESSION: 1. 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 No acute osseous abnormality. Knee X-Ray 11/19/24 16:15 IMPRESSION: No fracture identified. Questionable slight lateral subluxation of the patella, however, the finding may be artifactual due to patient positioning. Correlate clinically. Mild joint space narrowing in the patellofemoral joint. If symptoms persist or worsen, consider a short-term follow-up study or additional imaging for further assessment. Critical Care Time Critical Care Time Critical Care Time: No Discharge Plan Discharge Clinical Impression: Abrasion, Abrasion of face, Contusion of knee, Right wrist sprain, Contusion of hand, Thyroid nodule Patient Disposition: Home Condition: Stable Instructions: Muscle Strain (ED), Head Injury (ED), Thyroid Nodules (ED), Contusion in Adults (ED), Abrasion (ED) Additional Instructions: Return if symptoms are worsening , call your family physician for appointment, take Tylenol, ibuprofen as as needed for aches and pain, continue home medications. CT scan of the cervical spine showed 1.3 cm lesion in the left thyroid lobe. A thyroid ultrasound is recommended. Please contact your family physician as soon as possible for further evaluation Patient Language: Kazakh Prescriptions: No Action hydrocodone-acetaminophen 5-325 mg tablet PO prednisone 10 mg tablet 20 mg PO DAILY Qty: 60 0RF Rx Instructions: Take 2 tablets daily for 7 days, then 1 tablet daily Follow-up/Referrals: Cece Isidro APRN [Advanced Practice Nurse, Family Practice]
[2024-11-19] MEDS: IBUPROFEN 400 MG TABLET 800 MG PO (15:43)
[2024-11-19] MEDS: ACETAMINOPHEN 500 MG TABLET 1000 MG PO (15:44)
--- OUTSIDE RECORDS SUMMARY | 2024-11-19 16:20 | XMS_ITS | Encounter Summary ---
Author Organization [facility] Address [facility] [place] [address] Care Team Providers Care Clinical Data Coordinator Name Role Phone Romy Grayson MD Primary Care Provider [phone] Encounter Details Date Type Department Care Team (Late st Contact Info) Description 01/15/2022 [email or web address] Message Enc [facility] Medical Group Family & Internal Medicine [facility] [id number] [place] [phone] Romy Grayson MD [address] [place] [address]. 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 Thx * Reji Estrelal RN - 01/15/2022 3:56 PM CDT Please advise. documented in this encounter Plan of Treatment Upcoming Encounters Date Type Department Care Team (Late st Contact Info) Description 12/09/2024 12:48 PM CDT Hospital Encounter [facility] [address] [place] [address] Mario Hopper MD [address] [place] [address] [place] [address] 12/09/2024 12:48 PM CDT Anesthesia Event [facility] [address] [place] [address] Parag Cifuentes, [facility] [address] [place] [address] 12/09/2024 12:48 PM CDT - 12/09/2024 1:42 PM CDT Surgery [facility] [address] [place] [address] Mario Hopper MD [address] [place] [address] [place] [address] EGD WITH BIOPSY 02/15/2025 9:20 AM BINDERY ASSISTANT Laboratory Only [facility] Family & Internal Medicine [address] [phone] 02/23/2025 10:40 AM BINDERY ASSISTANT Office Visit [facility] Family & Internal [facility] [address] [place] [address] [place] [address] [facility] [address] [place] [address] Scheduled Procedures Name Priority Associated Diagnoses Date/Ti [...] documented as of this encounter Care Teams Clinical Data Coordinator Relationship Specialty [place] [address] [address] [place] [address] PCP - General FAMILY PRACTICE 06/23/21 documented as of this encounter
--- OUTSIDE RECORDS SUMMARY | 2024-11-19 16:20 | XMS_ITS | Encounter Summary ---
Author Organization [facility] Address [facility] [place] [address] Care Team Providers Care Sub Prior Name Role Phone Romy Grayson MD Primary Care Provider [phone] Encounter Details Date Type Department Care Team (Late st Contact Info) Description 11/09/2021 [employer] Message Enc [facility] Medical Group Family & Internal Medicine [address] [address] Romy Grayson MD [address] [place] [address]. 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 tHANKS * Courtney Patel RN - 11/10/2021 9:27 AM CDT Please advise. documented in this encounter Plan of Treatment Upcoming Encounters Date Type Department Care Team (Late st Contact Info) Description 12/09/2024 12:48 PM CDT Hospital Encounter [facility] [address] [place] [address] Mario Hopper MD [address] [place] [address] DR MOREIR[address] [place] [address] 12/09/2024 12:48 PM CDT Anesthesia Event [facility] [address] [place] [address] Parag Cifuentes [facility] [address] [place] [address] 12/09/2024 12:48 PM CDT - 12/09/2024 1:42 PM CDT Surgery [facility] [address] [place] [address] Mario Hopper MD [address] [facility] [address] MOREIRA [address] [place] [address] EGD WITH BIOPSY 02/15/2025 9:20 AM DIRECTOR OF GUIDANCE Laboratory Only [facility] Family & Internal [facility] [address] [place] [address] 02/23/2025 10:40 AM DIRECTOR OF GUIDANCE Office Visit [facility] Family & Internal [facility] [address] [place] [address] [place] [address] [facility]. [address] [place] [address] Scheduled Procedures Name Priority Associated Diagnoses Date/Ti [...] documented as of this encounter Care Teams Sub Prior Relationship Specialty [place] [address] [facility]. [address] [place] [address] PCP - General FAMILY PRACTICE 06/23/21 documented as of this encounter
--- OUTSIDE RECORDS SUMMARY | 2024-11-19 16:20 | XMS_ITS | Encounter Summary ---
Author Organization [facility] Address [facility] [place] [address] Care Team Providers Care Building Maintenance Technician Name Role Phone Romy Grayson MD Primary Care Provider [phone] Encounter Details Date Type Department Care Team (Late st Contact Info) Description 11/10/2024 [employer] Message [facility] Medical Group General Surgery [address], [address] [place] [address] [facility], [facility] Provider Colonoscopy prep instructions Social History Tobacco [...] materials from doctor or pharmacy Never 02/17/2024 [facility] Utilities Answer Date Recorded In the past 12 months has th e [employer], gas, oil, or water company threatened to [...] any time in the past 12 m [facility], were you homeless or living in a senior living (including now)? No 02/07/2024 Comments No Sex [...] Description 12/09/2024 12:48 PM CDT Hospital Encounter [facility] [address] [place] [address] Mario Hopper MD [facility] [address] [address] 12/09/2024 12:48 PM CDT Anesthesia Event [facility] [address] [place] [address] Parag Cifuentes CRNA [address] [place] [address] 12/09/2024 12:48 PM CDT - 12/09/2024 1:42 PM CDT Surgery [facility] [address] [place] [address] Mario Hopper MD [address] [facility] [place] [address] EGD WITH BIOPSY 02/15/2025 9:20 AM GROUP SUPERVISOR YARD Laboratory Only [facility] Family & Internal [facility] [address] [place] [address] 02/23/2025 10:40 AM GROUP SUPERVISOR YARD Office Visit [facility] & Internal [facility] [address] [place] [address] [place] [address] [facility]. [address] [place] [address] Scheduled Procedures Name Priority Associated Diagnoses Date/Ti [...] documented as of this encounter Care Teams Building Maintenance Technician Relationship Specialty [place] [address] [facility] [address] [place] [address] PCP - General FAMILY PRACTICE 06/23/21 documented as of this encounter
--- OUTSIDE RECORDS SUMMARY | 2024-11-19 16:20 | XMS_ITS | Encounter Summary ---
Author Organization [facility] Address [facility] [place] [address] Care Team Providers Care Radiology Nurse Name Role Phone Romy Grayson MD Primary Care Provider [phone] Encounter Details Date Type Department Care Team (Late st Contact Info) Description 07/10/2024 Gyros Message Enc [facility] Medical [facility] General Surgery [address], [address] [place] [address] Mario Hopper MD [address] [place] [address] [address] Colonoscopy Social History Tobacco Use [...] materials from doctor or pharmacy Never 02/17/2024 [facility] Utilities Answer Date Recorded In the past 12 months has e [employer], gas, oil, or water company threatened to [...] were you homeless or living in a nursing home (including now)? No 02/07/2024 Comments No [...] Description 12/09/2024 12:48 PM CDT Hospital Encounter [facility] [address] [place] [address] Mario Hopper MD [facility] [place] [address] 12/09/2024 12:48 PM CDT Anesthesia Event [facility] [address] [place] [address] Parag Cifuentes CRNA [address] [place] [address] 12/09/2024 12:48 PM CDT - 12/09/2024 1:42 PM CDT Surgery [facility] [address] [place] [address] Mario Hopper MD [address] [facility] [address] MOREIRA [address] [place] [address] EGD WITH BIOPSY 02/15/2025 9:20 AM ADMINISTRATIVE SUPPORT SPECIALIST Laboratory Only [facility] Family & Internal Medicine [facility] [address] [place] [address] 02/23/2025 10:40 AM ADMINISTRATIVE SUPPORT SPECIALIST Office Visit [facility] Family & Internal Medicine [facility] [address] [place] [address] [place] [address] [facility]. [address] [place] [address] Scheduled Procedures Name Priority Associated Diagnoses Date/Ti [...] Depression Total Score: 0 02/19/20 10:26 AM ADMINISTRATIVE SUPPORT SPECIALIST documented as of this encounter Care Teams Radiology Nurse Relationship Specialty [place] [address] [facility] [employer]. [address] [place] [address] PCP - General FAMILY PRACTICE 06/23/21 documented as of this encounter
--- OUTSIDE RECORDS SUMMARY | 2024-11-19 16:20 | XMS_ITS | Encounter Summary ---
Author Organization [facility] Address [facility]6 [place] [address] Care Team Providers Care School Physical Therapist Name Role Phone Romy Grayson MD Primary Care Provider [phone] Encounter Details Date Type Department Care Team (Late st Contact Info) Description 02/12/[id number] [facility] Medical Group General Surgery [address], [facility] [address] [place] [address] Israel Smart MD [address] [place] [phone] Xray Social History Tobacco Use Types [...] Description 12/09/2024 12:48 PM CDT Hospital Encounter [facility] [address] [place] [address] Mario Hopper MD [address] [facility] [address] MOREIRA [address] [place] [address] 12/09/2024 12:48 PM CDT Anesthesia Event [facility] [address] [place] [address] Parag Cifuentes, [facility] 7416 [place] [address] 12/09/2024 12:48 PM CDT - 12/09/2024 1:42 PM CDT Surgery [facility] [address] [place] [address] Mario Hopper MD [address] [facility] [address] MOREIRA [address] [place] [address] EGD WITH BIOPSY 02/15/2025 9:20 AM CONTROLLED ATMOSPHERIC FURNACE BRAZER Laboratory Only [facility] Family & Internal Medicine [address] [phone] 02/23/2025 10:40 AM CONTROLLED ATMOSPHERIC FURNACE BRAZER Office Visit [facility] Family & Internal [address] [phone] Romy Grayson MD [address] [place] [address]. [address] [place] [address] Scheduled Procedures Name Priority Associated Diagnoses Date/Ti [...] documented as of this encounter Care Teams School Physical Therapist Relationship Specialty [place] [address] [facility]. [address] [place] [address] PCP - General FAMILY PRACTICE 06/23/21 documented as of this encounter
--- OUTSIDE RECORDS SUMMARY | 2024-11-19 16:20 | XMS_ITS | Encounter Summary ---
Author Organization [facility] Address [facility] [place] [address] Care Team Providers Care Skull Splitter Name Role Phone Romy Grayson MD Primary Care Provider [phone] Encounter Details Date Type Department Care Team (Late st Contact Info) Description 12/14/2021 [employer] Message Enc [facility] Medical Group Family & Internal Medicine [address] [address] Romy Grayson MD [address] [place] [address]. [address] [place] [address] Food allergy test request Social History [...] Description 12/09/2024 12:48 PM CDT Hospital Encounter [facility] [address] [place] [address] Mario Hopper MD [address] [facility] [address] MOREIRA [address] [place] [address] 12/09/2024 12:48 PM CDT Anesthesia Event [facility] [address] [place] [address] Parag Cifuentes, [facility] [address] [place] [address] 12/09/2024 12:48 PM CDT - 12/09/2024 1:42 PM CDT Surgery [facility] [address] [place] [address] Mario Hopper MD [address] [facility] [address] MOREIRA [address] [place] [address] EGD WITH BIOPSY 02/15/2025 9:20 AM RESIDENTIAL THERAPIST Laboratory Only [facility] Family & Internal [address] [address] 02/23/2025 10:40 AM RESIDENTIAL THERAPIST Office Visit [facility] Family & Internal Medicine [facility] [address] [place] [phone] Romy [place] [address] [place] [address]. [address] [address] Scheduled Procedures Name Priority Associated Diagnoses Date/Ti [...] documented as of this encounter Care Teams Skull Splitter Relationship Specialty [place] [address] [facility]. [address] [place] [address] PCP - General FAMILY PRACTICE 06/23/21 documented as of this encounter
--- OUTSIDE RECORDS SUMMARY | 2024-11-19 16:20 | XMS_ITS | Clinical Summary ---
Author Organization [facility] Address [address] [place] [address] Phone Care Team Providers Care Dovetail Machine Operator Name Role Phone Zuly Flores MD Primary Care Provider [phone] Allergies Active Allergy Reactions Criticality Noted Date [...] measures to stabilize the patient. Care Teams Dovetail Machine Operator Relationship Specialty Start Date End Date Zuly Flores MD [address] [place] [address] PCP - General Family Medicine 08/10/16
--- OUTSIDE RECORDS SUMMARY | 2024-11-19 16:20 | XMS_ITS | Encounter Summary ---
Author Organization [facility] Address [facility] [place] [address] Care Team Providers Care Manager Willow Name Role Phone Romy Grayson MD Primary Care Provider [phone] Encounter Details Date Type Department Care Team (Late st Contact Info) Description 08/02/2021 [employer] Message Enc [facility] Family & Internal Medicine [facility] [address] [place] [address] Romy Grayson MD [address] [place] [address]. [address] [place] [address] Back pain Social History Tobacco Use [...] 12/09/2024 12:48 PM CDT Hospital Encounter [facility] [address] [place] [address] Mario Hopper MD [address] [facility] [address] MOREIRA [address] [place] [address] 12/09/2024 12:48 PM CDT Anesthesia Event [facility] [address] [place] [address] Parag Cifuentes, [facility] [address] [place] [address] 12/09/2024 12:48 PM CDT - 12/09/2024 1:42 PM CDT Surgery [facility] [address] [place] [address] Mario Hopper MD [address] [facility] [address] MOREIRA [address] [place] [address] EGD WITH BIOPSY 02/15/2025 9:20 AM ROLL PANNER Laboratory Only [facility] Family & Internal [address] [phone] 02/23/2025 10:40 AM ROLL PANNER Office Visit [facility] Family & Internal [facility] [address] [place] [phone] [place] [address] [facility]. [address] [place] [address] Scheduled Procedures Name Priority Associated Diagnoses Date/Ti [...] as of this encounter Care Teams Manager Willow Relationship Specialty [place] [address] [facility] [address] [place] [address] PCP - General FAMILY PRACTICE 06/23/21 documented as of this encounter
--- OUTSIDE RECORDS SUMMARY | 2024-11-19 16:20 | XMS_ITS | Encounter Summary ---
Author Organization [facility] Address [facility] [place] [address] Care Team Providers Care Structural Iron Worker Name Role Phone Romy Grayson MD Primary Care Provider [phone] Encounter Details Date Type Department Care Team (Late st Contact Info) Description 07/06/2021 Fit with Friend[employer] Message Enc [facility] Medical Group Family & Internal Medicine [facility] [address] [place] [address] Romy Grayson MD [address] [place] [address]. [address] [place] [address] Allergy test Social History Tobacco Use [...] Description 12/09/2024 12:48 PM CDT Hospital Encounter [facility] [address] [place] [address] Mario Hopper MD [address] [facility] [address] MOREIRA [address] [place] [address] 12/09/2024 12:48 PM CDT Anesthesia Event [facility] [address] [place] [address] Parag Cifuentes [facility] [address] [place] [address] 12/09/2024 12:48 PM CDT - 12/09/2024 1:42 PM CDT Surgery [facility] [address] [place] [address] Mario Hopper MD [address] [facility] [address] MOREIRA [address] [place] [address] EGD WITH BIOPSY 02/15/2025 9:20 AM PILLOWCASE FOLDER Laboratory Only [facility] Family & Internal [address] [phone] 02/23/2025 10:40 AM PILLOWCASE FOLDER Office Visit [facility] Family & Internal [facility] [address] [place] [phone] [place] [address] [facility]. [address] [place] [address] Scheduled Procedures Name Priority Associated Diagnoses Date/Ti [...] documented as of this encounter Care Teams Structural Iron Worker Relationship Specialty [place] [address] [address] [facility] [place] [address] PCP - General FAMILY PRACTICE 06/23/21 documented as of this encounter
--- OUTSIDE RECORDS SUMMARY | 2024-11-19 16:20 | XMS_ITS | Encounter Summary ---
Author Organization [facility] Address [facility] [place] [address] Care Team Providers Care Wrapper Opener Name Role Phone Romy Grayson MD Primary Care Provider [phone] Encounter Details Date Type Department Care Team (Late Contact Info) Description 08/02/2021 [employer] Message [facility] Medical Group Family & Internal Medicine [address] [address] [facility] Provider Pain management referral Social History Tobacco [...] Description 12/09/2024 12:48 PM CDT Hospital Encounter [facility] [address] [place] [address] Mario Hopper MD [address] [facility] [address] MOREIRA [address] [place] [address] 12/09/2024 12:48 PM CDT Anesthesia Event [facility] [address] [place] [address] Parag Cifuentes, [facility] [address] [place] [address] 12/09/2024 12:48 PM CDT - 12/09/2024 1:42 PM CDT Surgery [facility] [address] [place] [address] Mario Hopper MD [address] [place] [address] DR [address]IR[address] [place] [address] EGD WITH BIOPSY 02/15/2025 9:20 AM WELL DRILL OPERATOR Laboratory Only [facility] Family & Internal [address] [phone] 02/23/2025 10:40 AM WELL DRILL OPERATOR Office Visit [facility] Family & Internal [address] [phone] Romy Grayson MD [address] [place] [address]. [address] [place] [address] Scheduled Procedures Name Priority Associated Diagnoses Date/Ti [...] documented as of this encounter Care Teams Wrapper Opener Relationship Specialty [place] [address] [address] [place] [address] PCP - General FAMILY PRACTICE 06/23/21 documented as of this encounter
--- OUTSIDE RECORDS SUMMARY | 2024-11-19 16:20 | XMS_ITS | Encounter Summary ---
Author Organization [facility] Address [facility] [place] [address] Care Team Providers Care Pneumatic Jacketer Name Role Phone Romy Grayson MD Primary Care Provider [phone] Encounter Details Date Type Department Care Team (Late st Contact Info) Description 09/30/2024 [employer] Message Enc [facility] Medical Group Family & Internal Medicine [address] [address] Romy Grayson MD [address] [place] [address] [address] Test Social History Tobacco Use [...] materials from doctor or pharmacy Never 02/17/2024 [facility] Utilities Answer Date Recorded In the past 12 months has e [employer], gas, oil, or water company threatened to [...] were you homeless or living in a long-term (including now)? No 02/07/2024 Comments No Sex [...] Assessment Author Status No 02/05/2024 6:22 PM SHAMPOO ASSISTANT Olivia Wallace, R N Active * Are you blind or do you have serious difficulty seeing, even when wearing glasses? Answer Date of Assessment Author Status No 02/05/2024 6:22 PM SHAMPOO ASSISTANT Olivia Wallace, R N Active * Do you have serious difficulty walking or climbing stairs? Answer Date of Assessment Author Status Yes 02/05/2024 6:22 PM SHAMPOO ASSISTANT Olivia Wallace, R N Active * Do you have difficulty dressing or bathing? Answer Date of Assessment Author Status No 02/05/2024 6:22 PM SHAMPOO ASSISTANT Olivia Wallace, R N Active * Because of a physical, mental, or emotional condition, do you have difficulty doing errands alone such as visiting a doctor's office or shopping? Answer Date of Assessment Author Status No 02/05/2024 6:22 PM SHAMPOO ASSISTANT Olivia Wallace, R N Active documented as of this encounter Mental Status * Because of a physical, mental, or emotional condition, do you have serious difficulty concentrating, remembering, or making decisions? Answer Entry Date Author Status No 02/05/2024 6:22 PM SHAMPOO ASSISTANT Olivia Wallace, R N Active documented in this encounter Progress Notes * Argenis Denis RN - 10/01/2024 2:51 PM CDT Already addressed. documented in this encounter Plan of Treatment Upcoming Encounters Date Type Department Care Team (Late st Contact Info) Description 12/09/2024 12:48 PM CDT Hospital Encounter [facility] [address] [place] [address] Mario Hopper MD [address] [place] [address] DR [address]IR[address] [place] [address] 12/09/2024 12:48 PM CDT Anesthesia Event [facility] [address] [place] [address] Parag Cifuentes CRNA 7416 [place] [address] 12/09/2024 12:48 PM CDT - 12/09/2024 1:42 PM CDT Surgery [facility] [address] [place] [address] Mario Hopper MD 4550 [facility] [address] [address] EGD WITH BIOPSY 02/15/2025 9:20 AM SHAMPOO ASSISTANT Laboratory Only [facility] & Internal [facility] [address] [place] [address] 02/23/2025 10:40 AM SHAMPOO ASSISTANT Office Visit [facility] [address] [place] [address] [place] [address] [facility]. [address] [place], [place] [phone] Scheduled Procedures Name Priority Associated Diagnoses Date/Ti [...] documented as of this encounter Care Teams Pneumatic Jacketer Relationship Specialty [place] [address] [facility] [address] [place] [address] PCP - General FAMILY PRACTICE 06/23/21 documented as of this encounter
--- OUTSIDE RECORDS SUMMARY | 2024-11-19 16:20 | XMS_ITS | Encounter Summary ---
Author Organization [facility] Address [facility] [place] [address] Care Team Providers Care Care Professional Name Role Phone Romy Grayson MD Primary Care Provider [phone] Encounter Details Date Type Department Care Team (Late st Contact Info) Description 01/01/2022 Bill[employer]Forward Message Enc [facility] Medical Group Family & Internal Medicine [address] [address] Romy Grayson MD [address] [place] [address]. [address] [place] [address] Senna Social History Tobacco Use Types [...] Description 12/09/2024 12:48 PM CDT Hospital Encounter [facility] [address] [place] [address] Mario Hopper MD [address] [facility] [address] MOREIR[address] [place] [address] 12/09/2024 12:48 PM CDT Anesthesia Event [facility] [address] [place] [address] Parag Cifuentes [facility] [address] [place] [address] 12/09/2024 12:48 PM CDT - 12/09/2024 1:42 PM CDT Surgery [facility] [address] [place] [address] Mario Hopper MD [address] [facility] [address] MORE[address] [place] [address] EGD WITH BIOPSY 02/15/2025 9:20 AM YARDAGE TUFTING MACHINE OPERATOR Laboratory Only [facility] Family & Internal Medicine [address] [address] 02/23/2025 10:40 AM YARDAGE TUFTING MACHINE OPERATOR Office Visit [facility] Family & Internal Medicine [address] [address] [place] [address] [facility] [place]. [address] [place] [address] Scheduled Procedures Name Priority Associated Diagnoses Date/Ti [...] documented as of this encounter Care Teams Care Professional Relationship Specialty [place] [address] [facility] [place]. [address] [place] [address] PCP - General FAMILY PRACTICE 06/23/21 documented as of this encounter
--- OUTSIDE RECORDS SUMMARY | 2024-11-19 16:20 | XMS_ITS | Encounter Summary ---
Author Organization [facility] Address [facility] [place] [address] Care Team Providers Care High School Math Tutor Name Role Phone Romy Grayson MD Primary Care Provider [phone] Encounter Details Date Type Department Care Team (Late st Contact Info) Description 08/10/2021 Visualase Message Enc [facility] Medical Group Family & Internal Medicine [facility] [address] [place] [phone] Romy Grayson MD [address] [place] [address]. [address] [place] [address] Follow up appointment Social History Tobacco [...] Description 12/09/2024 12:48 PM CDT Hospital Encounter [facility] [address] [place] [address] Mario Hopper MD [address] [place] [address] [place] [address] 12/09/2024 12:48 PM CDT Anesthesia Event [facility] [address] [place] [address] [address] [address] 12/09/2024 12:48 PM CDT - 12/09/2024 1:42 PM CDT Surgery [facility] [address] [place] [address] Mario Hopper MD [address] [place] [address] [place] [address] EGD WITH BIOPSY 02/15/2025 9:20 AM ARMORED TRUCK DRIVER Laboratory Only [facility] Family & Internal [address] [phone] 02/23/2025 10:40 AM ARMORED TRUCK DRIVER Office Visit [facility] Family & Internal [facility] [address] [place] [phone] [place] [address] [facility]. [address] [place] [address] Scheduled Procedures Name Priority Associated Diagnoses Date/Ti [...] documented as of this encounter Care Teams High School Math Tutor Relationship Specialty [place] [address] [address] [place] [address] PCP - General FAMILY PRACTICE 06/23/21 documented as of this encounter
--- OUTSIDE RECORDS SUMMARY | 2024-11-19 16:20 | XMS_ITS | Clinical Summary ---
Author Organization [facility] [address] Address [address] [place] [address] Care Team Providers Care Solar Technician Name Role Phone Jose G Patel MD Unavailable [phone] Zuly Flores MD Primary Care Provider [phone] Source Comments [facility] Affiliates and Associated Physician Practices is amultiple site organization consisting of ambulatory clinics and hospital sitesin [place], [place], [place] and [place]. This disclosure is being madepursuant to the Care Everywhere program and may not contain all information available regarding this patient. Last updated 17.[facility] Allergies Active Allergy Reactions Criticality Noted Date [...] as needed pain 3 Active HYDROcodone-ac etaminophen (Windsor) 5-325 MG tablet Take 1 (one) tablet by mouth every 6 hours as needed Active traMADol (Ultram) 50 MG tablet Take 1 (one) tablet by mouth every 8 hours as needed For pain. 3 Active Active Problems Problem Noted Date Diagnosed Date Lactose intolerance 12/21/2021 10/09/2022 Coronary artery disease invo lving [place] coronary artery of [place] heart without angina pectoris 10/06/2021 10/09/2022 Overview (10/09/2022): Last Assessment & Plan: Her cardiac cath report from [facility] mentions a 30% stenosis. I will obtain CDs of her angiograms. Femoral acetabular impingement 09/27/2021 0 10/09/2022 Overview (10/09/2022): Last Assessment & Plan: Although not qddn-op-ienf on x-ray. Positive impingement with internal and external rotation of the hip. Mild cam but minimal pincer noted on x-ray. Patient has failed nonsteroidal anti-inflammatories, activity modification, Windsor and tramadol. Pain is interfering with her [...] on file Legal Sex Female 5:40 AM JEWELRY MAKING INSTRUCTOR Gender Identity Not on file Sexual Orientation [...] - 18 mmol/L 01/31/2021 5:36 AM CDT [facility] BUN 12 9.8 - 20.1 mg/dL 01/31/2021 5:36 AM CDT [facility] Creatinine 0.71 0.57 - 1.11 mg/dL 01/31/2021 5:36 AM CDT [facility] eGFR by MDRD >60 >60 mL/min/1.7 3m2 01/31/2021 5:36 AM CDT [facility] eGFR by MDRD >60 >60 mL/min/1.7 3m2 01/31/2021 5:36 AM CDT [facility] Blood BLOOD SPECIMEN / Unknown Lab Venipuncture / Unknown 01/31/2021 4:23 AM CDT 01/31/2021 5:17 AM CDT Belkis Elliott MD LAB - CHEMISTRY ORDERABLES Jennifer l Result [facility] [address] [place] [address] * HEPATITIS SCREEN ACUTE (11/23/2020 10:31 AM [...] with a HCV Nucleic Acid Amplification test ([id number]). FASTING Blood BLOOD SPECIMEN / Unknown 11/23/2020 10:31 AM CDT 11/23/2020 Narrative Resulting Agency Comment Lab Testing performed at: [facility] [address] [facility] [id number] Jose G Patel MD LAB - CHEMISTRY ORDERABLES Final Result Performing Organization Address City/[facility] Co de Phone Number [facility] INSURANCE BILL [address] [place] [address] from Last 3 Months or Most Recently Relevant to Health Maintenance Insurance MEDICARE MEDICARE MEDICAID - OUT OF STATE Care Teams Solar Technician Relationship Specialty Start Date End Date Zuly Flores MD [address] [place] [address] PCP - General Family Medicine 11/07/21 Jose G Patel MD [address] [place] [phone] Fire Protection Specialist Rheumatology 12/17/18
--- OUTSIDE RECORDS SUMMARY | 2024-11-19 16:20 | XMS_ITS | Encounter Summary ---
Author Organization [facility] Address [facility] [place] [address] Care Team Providers Care Map Mounter Name Role Phone Romy Grayson MD Primary Care Provider [phone] Encounter Details Date Type Department Care Team (Late st Contact Info) Description 09/13/2022 American TeleCaret Message Enc [facility] Medical Group Family & Internal Medicine [address] [phone] Romy Grayson MD [address] [place] [address]. [address] [place] [address] Hip pain Social History Tobacco Use [...] Description 12/09/2024 12:48 PM CDT Hospital Encounter [facility] [address] [place] [address] Mario Hopper MD [address] [place] [address] [place] [address] 12/09/2024 12:48 PM CDT Anesthesia Event [facility] [address] [place] [address] Parag Cifuentes [facility] [address] [place] [address] 12/09/2024 12:48 PM CDT - 12/09/2024 1:42 PM CDT Surgery [facility] [address] [place] [address] Mario Hopper MD [address] [place] [address] [place] [address] EGD WITH BIOPSY 02/15/2025 9:20 AM NURSE'S COMPANION Laboratory Only [facility] Family & Internal [address] [phone] 02/23/2025 10:40 AM NURSE'S COMPANION Office Visit [facility] Family & Internal [address] [phone] Romy Grayson MD [address] [place] [address]. [address] [place] [address] Scheduled Procedures Name Priority Associated Diagnoses Date/Ti [...] documented as of this encounter Care Teams Map Mounter Relationship Specialty [place] [address] [address] [place] [address] PCP - General FAMILY PRACTICE 06/23/21 documented as of this encounter
--- OUTSIDE RECORDS SUMMARY | 2024-11-19 16:20 | XMS_ITS | Encounter Summary ---
Author Organization [facility] Address [facility] [place] [address] Care Team Providers Care Scientific Editor Name Role Phone Romy Grayson MD Primary Care Provider [phone] Encounter Details Date Type Department Care Team (Late Contact Info) Description 10/12/2022 Prep for Procedure [facility] [address] [place] [address] Dany Velasco MD [address] [place] [phone] Social History Tobacco Use Types Packs/Day [...] Description 12/09/2024 12:48 PM CDT Hospital Encounter [facility] [address] [place] [address] Mario Hopper MD [address] [place] [address] 12/09/2024 12:48 PM CDT Anesthesia [facility] [address] [place] [address] Parag Cifuentes, [facility] [address] [place] [address] 12/09/2024 12:48 PM CDT - 12/09/2024 1:42 PM CDT Surgery [address] [address] Mario Hopper MD [address] [place] [address] EGD WITH BIOPSY 02/15/2025 9:20 AM TEACHER PUBLIC HEALTH Laboratory Only [facility] Family & Internal [address] [phone] 02/23/2025 10:40 AM TEACHER PUBLIC HEALTH Office Visit [facility] & Internal [address] [phone] Romy Grayson MD [address] [place] [address]. [address] [place] [phone] Scheduled Procedures Name Priority Associated Diagnoses Date/Ti me EGD WITH BIOPSY Right upper quadrant abdominal pain Change in bowel habits 12/09/2024 12:48 PM CDT COLONOSCOPY WITH BIOPSY Right upper quadrant abdominal pain Change in bowel habits 12/09/2024 12:48 PM CDT documented as of this encounter Results * ECG 12-Lead (10/12/2022 2:24 PM CDT) 10/12/2022 2:24 PM CDT Narrative [facility] ([facility]) RAD - 10/12/2022 3:09 PM CDT [facility] Test Date: 2022-10-12 Pat Name: STELLA GONZALEZ Department: 85 Room: Gender: Female Stevedore Dock: : 1965 Requested By: DANY VELASCO Order Number: [id number] Reading MD: Franky Snider Measurements Intervals [place] Rate: 63 P: 18 NE: 162 QRS: 33 QRSD: 84 T: 28 [...] Procedure Note Franky Snider MD - 10/12/2022 [facility] Test Date: 2022-10-12 Pat Name: STELLA GONZALEZ Department: 85 Room: Gender: Female Stevedore Dock: : 1965 Requested By: DANY VELASCO Order Number: [id number] Reading : Franky Snider Measurements Intervals [place] Rate: 63 P: 18 NE: 162 QRS: 33 QRSD: 84 T: 28 [...] Velasco MD ECG ORDERABLES Final Resul t [facility] ([facility] RAD documented in this encounter Visit Diagnoses [...] documented as of this encounter Care Teams Scientific Editor Relationship Specialty [place] [address] [facility] [address] [place] [address] PCP - General FAMILY PRACTICE 06/23/21 documented as of this encounter
--- OUTSIDE RECORDS SUMMARY | 2024-11-19 16:20 | XMS_ITS | Encounter Summary ---
Author Organization [facility] Address [facility] [place] [address] Care Team Providers Care Cinder Crew Worker Name Role Phone Romy Grayson MD Primary Care Provider Encounter Details Date Type Department Care Team (Late st Contact Info) Description 11/07/2021 DS Industriest Message Enc [facility] Medical Group Family & Internal Medicine [address] [phone] Romy Grayson MD [address] [place] [address]. [address] [place] [address] Testing Social History Tobacco Use Types [...] AM CDT Kevin Esquivel RN Active * [place] Suicide Severity Rating Scale (Screener/Recent Self-Report) Question [...] Description 12/09/2024 12:48 PM CDT Hospital Encounter [facility] [address] [place] [address] Mario Hopper MD [address] [facility] [address] [place] [address] 12/09/2024 12:48 PM CDT Anesthesia Event [facility] [address] [place] [address] Parag Cifuentes, [address] [address] 12/09/2024 12:48 PM CDT - 12/09/2024 1:42 PM CDT Surgery [facility] [address] [place] [address] Mario Hopper MD [address] [facility] [address] [place] [address] [place] [address] EGD WITH BIOPSY 02/15/2025 9:20 AM QUALITY COMPLIANCE MANAGER Laboratory Only [facility] Medical Group Family & Internal Medicine - [place] [address] [place] [address] 02/23/2025 10:40 AM QUALITY COMPLIANCE MANAGER Office Visit [facility] Medical Group Family & Internal Medicine [facility] [address] [place] [address] [place] [address] [facility]. [address] [place] [address] Scheduled Procedures Name Priority Associated Diagnoses Date/Ti [...] documented as of this encounter Care Teams Cinder Crew Worker Relationship Specialty [place] [address] [facility] [address] [place] [address] PCP - General FAMILY PRACTICE 06/23/21 documented as of this encounter
--- OUTSIDE RECORDS SUMMARY | 2024-11-19 16:20 | XMS_ITS | Encounter Summary ---
Author Organization [facility] Address [facility] [place] [address] Care Team Providers Care Chipper Machine Operator Name Role Phone Romy Grayson MD Primary Care Provider [phone] Encounter Details Date Type Department Care Team (Late Contact Info) Description 11/19/2023 Prep for Procedure [facility] [address] [place] [address] Mario Hopper MD [facility] [address] [address] Social History Tobacco Use Types [...] Description 12/09/2024 12:48 PM CDT Hospital Encounter [facility] [address] [place] [address] Mario Hopper MD [address] [place] [address] 12/09/2024 12:48 PM CDT Anesthesia Event [facility] [address] [place] [address] Parag Cifuentes, [facility] [address] [place] [address] 12/09/2024 12:48 PM CDT - 12/09/2024 1:42 PM CDT Surgery [facility] [address] [place] [address] Mario Hopper MD [address] [facility] [place] [place] [address] EGD WITH BIOPSY 02/15/2025 9:20 AM DIE CASTING MACHINE SETTER Laboratory Only [facility] Family & Internal [address] [phone] 02/23/2025 10:40 AM DIE CASTING MACHINE SETTER Office Visit [facility] Family & Internal [address] [phone] Romy Grayson MD [address] [place] [address]. [address] [place], [place] [phone] Scheduled Procedures Name Priority Associated Diagnoses Date/Ti me EGD WITH BIOPSY Right upper quadrant abdominal pain Change in bowel habits 12/09/2024 12:48 PM CDT COLONOSCOPY WITH BIOPSY Right upper quadrant abdominal pain Change in bowel habits 12/09/2024 12:48 PM CDT documented as of this encounter Results * ECG 12-Lead (11/21/2023 11:10 AM CDT) 11/21/2023 11:1 0 AM CDT Narrative [facility] ([facility] RAD - 11/22/2023 6:48 AM CDT [facility] Test Date: 2023-11-21 Pat Name: STELLA GONZALEZ Department: 85 Room: Gender: Female Blast Hole Driller: : 1965 Requested By: TERRENCE GOLDMAN Order Number: [id number] Reading MD: Vega Melo Measurements Intervals [place] Rate: 71 P: 20 [place]: 155 QRS: 11 QRSD: 78 T: 10 QT: 382 QTc: 417 Interpretive Statements SINUS RHYTHM POSSIBLE INFERIOR MYOCARDIAL INFARCTION , PROBABLY OLD [30 ms Q WAVE IN II/aVF] Compared to ECG 10/12/2022 14:24:51 T-wave abnormality no longer present Possible ischemia no longer present Myocardial infarct finding still present Procedure Note Vega Melo MD - 11/22/2023 [facility] Test Date: 2023-11-21 Pat Name: STELLA GONZALEZ Department: 85 Room: Gender: Female Blast Hole Driller: : 1965 Requested By: TERRENCE GOLDMAN Order Number: [id number] Reading MD: Vega Melo Measurements Intervals [place] Rate: 71 P: 20 [place]: 155 QRS: 11 QRSD: 78 T: 10 QT: 382 QTc: 417 Interpretive Statements SINUS RHYTHM POSSIBLE INFERIOR MYOCARDIAL INFARCTION , PROBABLY OLD [30 ms Q WAVE IN II/aVF] Compared to ECG 10/12/2022 14:24:51 T-wave abnormality no longer present Possible ischemia no longer present Myocardial infarct finding still present us Terrence Goldman MD ECG ORDERABLES Final Result [facility] RAD documented in this encounter Visit Diagnoses [...] documented as of this encounter Care Teams Chipper Machine Operator Relationship Specialty [place] [address] [address] [place] [address] PCP - General FAMILY PRACTICE 06/23/21 documented as of this encounter
--- OUTSIDE RECORDS SUMMARY | 2024-11-19 16:20 | XMS_ITS | Encounter Summary ---
Author Organization [facility] Address [facility] [place] [address] Care Team Providers Care Inspector Dials Name Role Phone Romy Grayson MD Primary Care Provider [phone] Encounter Details Date Type Department Care Team (Late st Contact Info) Description 11/06/2024 StoryWortht Message Enc [facility] Medical Group General Surgery - [place] [address] [place] [address], [address] [place] [address] Mario Hopper MD [address] [place] [address] [address] Meds Social History Tobacco Use [...] materials from doctor or pharmacy Never 02/17/2024 [facility] Utilities Answer Date Recorded In the past 12 months has e [employer], gas, oil, or water company threatened to [...] time in the past 12 m [facility], were you homeless or living in [...] Assessment Author Status No 02/05/2024 6:22 PM JEWELRY SORTER Olivia Wallace, R N Active * Do [...] Assessment Author Status No 02/05/2024 6:22 PM JEWELRY SORTER Olivia Wallace, R N Active documented as of this encounter Mental Status * Because of a physical, mental, or emotional condition, do you have serious difficulty concentrating, remembering, or making decisions? Answer Entry Date Author Status No 02/05/2024 6:22 PM Olivia Patiño, R N Active documented in this encounter Plan of Treatment Upcoming Encounters Date Type Department Care Team (Late st [facility] Info) Description 12/09/2024 12:48 PM CDT Hospital Encounter [facility] [address] [place] [address] Mario Hopper MD [address] [place] [address] DR [address] [place] [address] 12/09/2024 12:48 PM CDT Anesthesia Event [facility] [address] [place] [address] Parag Cifuentes, [facility] [address] [place] [address] 12/09/2024 12:48 PM CDT - 12/09/2024 1:42 PM CDT Surgery [facility] [address] [place] [address] Mario Hopper MD [address] [facility] [address] [address] EGD WITH BIOPSY 02/15/2025 9:20 AM JEWELRY SORTER Laboratory Only [facility] Family & Internal [facility] [address] [place] [address] 02/23/2025 10:40 AM JEWELRY SORTER Office Visit [facility] Family & Internal [facility] [address] [place] [address] [place] [address] [facility]. [address] [place] [address] Scheduled Procedures Name Priority Associated Diagnoses Date/Ti [...] documented as of this encounter Care Teams Inspector Dials Relationship Specialty [place] [address] [address] [employer] [place] [address] PCP - General FAMILY PRACTICE 06/23/21 documented as of this encounter
--- OUTSIDE RECORDS SUMMARY | 2024-11-19 16:20 | XMS_ITS | Encounter Summary ---
Author Organization [facility] Address [facility] [place] [address] Care Team Providers Care Choir Accompanist Name Role Phone Romy Grayson MD Primary Care Provider [phone] Encounter Details Date Type Department Care Team (Late st Contact Info) Description 10/08/2024 Results Follow-Up [facility] Medical Group Family & Internal Medicine [address] [address] Lizeth Ramsey, [place] [address] MRI ABD WWO CON Social History Tobacco [...] materials from doctor or pharmacy Never 02/17/2024 [facility] Utilities Answer Date Recorded In the past 12 months has th e [employer], oil, or [employer] threatened to shut off services in your [...] any time in the past 12 m [facility], were you homeless or living in a correction (including now)? No 02/07/2024 Comments No Sex [...] Assessment Author Status No 02/05/2024 6:22 PM BYPRODUCTS OPERATOR Olivia Wallace, R N Active * Are you blind or do you have serious difficulty seeing, even when wearing glasses? Answer Date of Assessment Author Status No 02/05/2024 6:22 PM BYPRODUCTS OPERATOR Olivia Wallace, R N Active * Do [...] Assessment Author Status No 02/05/2024 6:22 PM BYPRODUCTS OPERATOR Olivia Wallace, R N Active documented as [...] Description 12/09/2024 12:48 PM CDT Hospital Encounter [facility] [address] [place] [address] Mario Hopper MD [address] [facility] [address] [place] [address] 12/09/2024 12:48 PM CDT Anesthesia Event [facility] [address] [place] [address] Parag Cifuentes, [facility] [address] [place] [address] 12/09/2024 12:48 PM CDT - 12/09/2024 1:42 PM CDT Surgery [facility] [address] [place] [address] Mario Hopper MD [facility] [facility] [address] [place] [address] EGD WITH BIOPSY 02/15/2025 9:20 AM BYPRODUCTS OPERATOR Laboratory Only [facility] Family & Internal Medicine [address] [phone] 02/23/2025 10:40 AM BYPRODUCTS OPERATOR Office Visit [facility] Family & Internal [address] [phone] Romy Grayson MD [address] [place] [address]. [address] [place] [address] Scheduled Procedures Name Priority Associated Diagnoses Date/Ti [...] documented as of this encounter Care Teams Choir Accompanist Relationship Specialty [place] [address] [facility]. [address] [place] [address] PCP - General FAMILY PRACTICE 06/23/21 documented as of this encounter
--- OUTSIDE RECORDS SUMMARY | 2024-11-19 16:21 | XMS_ITS | Clinical Summary ---
Author Organization [facility] Address [address] [place] [address] Care Team Providers Care Data Entry Technician Name Role Phone Romy Kapoor MD Primary Care Provider [phone] Allergies Active Allergy Reactions Criticality Noted Date [...] (10/11/2022): Added automatically from request for surgery [id number] Recurrent nephrolithiasis 10/11/2022 Overview (10/11/2022): Added automatically from request for surgery [id number] Trigeminal neuralgia 12/21/2021 Lactose intolerance 12/21/2021 Precordial chest pain 10/06/2021 Assessment & Plan (10/06/2021 11:36 AM CDT): Her chest pain seems noncardiac in nature. She recently lost her and I think will defer work-up at this time especially since she had negative cardiac enzymes and no significant EKG changes. Coronary artery disease invo lving takotna coronary artery of takotna heart without angina pectoris 10/06/2021 Assessment & Plan (10/06/2021 11:37 AM CDT): Her cardiac cath report from [facility] mentions a 30% stenosis. I will [...] Plan (09/27/2021 9:34 AM CDT): Although not trtm-ci-mlnx on x-ray. Positive impingement with internal and external rotation of the hip. Mild cam but minimal pincer noted on x-ray. Patient has failed nonsteroidal anti-inflammatories, activity modification, Tr[place]ell and tramadol. Pain is interfering with her [...] Care Team Description 11/10/2024 MyChart Message Enc [facility] General Surgery [address], [address] [place] [address] [facility] Provider Colonoscopy prep instructions 11/09/2024 Orders Only [facility] Surgery [address], [address] [place] [address] Mario Hopper MD 11/06/2024 MyChart Message Enc [facility] Surgery [facility] [address], [address] [place] [phone] Mario Hopper MD Meds 10/20/2024 Telephone [facility] Family & Internal [address] [address] Romy Kapoor MD Follow Up Call 10/19/2024 4:00 PM CDT Office Visit [facility] Family & Internal [address] [address] Romy Kapoor MD Follow Up 10/19/2024 Travel 10/08/2024 Results Follow-Up [facility] Internal [address] [address] Anjelica Delacruz, NEW CAR SALES MANAGER-BC MRI ABD WWO CON 10/01/2024 12:00 PM CDT - 10/01/2024 11:59 PM CDT Hospital Encounter [address] [id number] Haven Soni ED MANAGER Discharge Disposition: Home or Self Care (Routine Discharge) 10/01/2024 Travel 10/01/2024 Telephone [facility] Internal [address] [address] Romy Kapoor MD Medication 09/30/2024 MyChart Message Enc [facility] Family & Internal [address] [address] Romy Kapoor MD Test 09/24/2024 Orders Only [facility] General [address], [address] [address] Mario Hopper MD 09/24/2024 Prep for Procedure [facility] General [address], [facility] [address] [place] [address] Mario Hopper MD 09/23/2024 MyChart Message Enc [facility] Family & Internal Medicine [facility] [address] [place] [address] Romy Kapoor MD MRI 09/22/2024 Telephone [facility] Surgery [facility] [address], [address] [place] [address] Mario Hopper MD Question 09/22/2024 MyChart Message Enc [facility] Family & Internal [facility] [address] [place] [address] [address] FNP-LINDA Ct 09/16/2024 9:13 AM CDT - 09/16/2024 11:59 PM CDT [place] [address] [place] [address] Anjelica Delacruz NEW CAR SALES MANAGER-BC Discharge Disposition: Home or Self Care (Routine Discharge) 09/16/2024 Travel 09/15/2024 7:48 AM CDT - 09/15/2024 11:59 PM CDT Hospital Encounter [facility] [address] [place] [address] Anjelica Delacruz NEW CAR SALES MANAGER-BC Discharge Disposition: Home or Self Care (Routine Discharge) 09/14/2024 1:20 PM CDT Office Visit [facility] General Surgery [facility] [address], [address] [place] [address] Mario Hopper MD Consult (Abdominal pain and bloody stools x 2 weeks/) 09/14/2024 Travel 09/09/2024 Results Follow-Up [facility] Family & Internal [address] [address] Anjelica Delacruz NEW CAR SALES MANAGER-BC PROTIME/INR, VENOUS, HEPATIC FUNCTION PANEL, US ABD LIMITED, CT ABD+PEL WWO CON 09/09/2024 Results Follow-Up [facility] [address] [place] [address] Anjelica Delacruz FNP-BC HEPATITIS PANEL,ACUTE 09/08/2024 2:24 PM CDT - 09/08/2024 11:59 PM CDT Hospital Encounter [facility] [address] [place] [address] Anjelica Delacruz FNP-BC Discharge Disposition: Home or Self Care (Routine Discharge) 09/08/2024 10:51 AM CDT - 09/08/2024 2:32 PM CDT Emergency [facility] Emergency Room [address] [place] [address] Ean Pederson MD Urinary Symptoms Discharge Disposition: Home or Self Care (Routine Discharge) 09/08/2024 Orders Only [facility] [address] [place] [address] Anjelica Delacruz FNP-BC 09/08/2024 Travel 09/07/2024 4:19 PM CDT - 09/07/2024 11:59 PM CDT Hospital Encounter [facility] [address] [place] [address] Anjelica Delacruz FNP-BC Discharge Disposition: Home or Self Care (Routine Discharge) 09/07/2024 4:00 PM CDT Laboratory Only [facility] Family Internal [address] [phone] Anjelica Delacruz FNP-BC 09/07/2024 3:20 PM CDT Office Visit [facility] Family & Internal [address] [phone] Anjelica Delacruz FNP-BC TCM (F/u er results) 09/07/2024 Telephone [facility] Internal [address] [phone] Romy Kapoor MD Question 09/07/2024 Travel 09/03/2024 2:42 PM CDT - 09/03/2024 5:58 PM CDT Emergency [facility] Emergency Room [address] [place] [address] Reji Armando MD Vomiting; Abdominal Pain; Diarrhea Discharge Disposition: Home or Self Care (Routine Discharge) 09/03/2024 2:40 PM CDT Office Visit [facility] Internal [address] [address] Vicenta Vásquez PA Gi Problem (pt states diverticulitis attack, started yesterday around 4pm. /) 09/03/2024 Travel 08/24/2024 MyChart Message Enc [address] [address] Romy Kapoor MD Labs 08/20/2024 9:40 AM CDT Office Visit [facility] Internal [address] [address] Romy Kapoor MD Follow Up (Pt c/o sweet smelling urine and sweat smelling like urine. ) 08/20/2024 Results Follow-Up [address] [address] Romy Kapoor MD HEMOGLOBIN, GLYCOSYLATED, [...] materials from doctor or pharmacy Never 02/17/2024 [facility] Utilities Answer Date Recorded In the past 12 months has th e [email or web address], gas, oil, or water [employer] threatened to shut off services in your [...] any time in the past 12 m [facility], were you homeless or living in a halfway (including now)? No 02/07/2024 Comments No Sex [...] Description 12/09/2024 12:48 PM CDT Hospital Encounter [facility] [address] [place], [place] [phone] Mario Hopper MD [facility] [place] [address] 12/09/2024 12:48 PM CDT Anesthesia Event [facility] [address] [place] [address] Parag Cifuentes, PRIMARY GRADE TEACHER [address] [place] [address] 12/09/2024 12:48 PM CDT - 12/09/2024 1:42 PM CDT Surgery [facility] [address] [place] [address] Mario Hopper MD [address] MORE[place] [address] [place] [address] EGD WITH BIOPSY 02/15/2025 9:20 AM LETTER OF CREDIT CLERK Laboratory Only [facility] Family & Internal [facility] [address] [place] [address] 02/23/2025 10:40 AM LETTER OF CREDIT CLERK Office Visit [facility] Family & Internal [facility] [address] [place] [address] [place] [address] [address] [facility] [place], [place] [phone] Scheduled Procedures Name Priority Associated Diagnoses Date/Ti [...] 2023 Mammogram Screening 10/28/2025 10/29/2023 PHQ-2 (Physician [place]) Completed 09/07/2024 Hepatitis C Completed 09/08/2024, 11/23/2020 [...] Ashley, RN Medical Devices Implanted Type Area Electronics Design Engineer Device Identifier Shelf Expiration Date Model / Serial / Lot Delivery System On-Q Pain Pump 5 - [id number] Implanted:Qt y: 1 on 02/05/2024 by Juarez Bagley DO at [facility] Catheter Implant Left: Hip [employer] 09/01/2025 [id number] / / [id number] Cup Acetabular Depuy 48mm - [id number] Implanted:Qt y: 1 on 02/05/2024 by Juarez Bagley DO at [facility] Hip Components Left: Acetabulum DEPUY [id number] 11/29/2032 [id number] / / [id number] Head Depuy Femoral Delta 32mm +1 - [id number] Implanted:Qt y: 1 on 02/05/2024 by Juarez Bagley DO at [facility] Hip Components Left: Hip DEPUY [id number] 09/28/2028 [id number] / / [id number] Liner Depuy Acetabular Altrx Neut 32 X 48 - [id number] Implanted:Qt y: 1 on 02/05/2024 by Juarez Bagley DO at [facility] Hip Components Left: Acetabulum DEPUY [id number] 07/29/2025 [id number] / / [id number] Pump Pain On-Q 400ml - [id number] Implanted:Qt y: 1 on 02/05/2024 by Juarez Bagley DO at [facility] Pump [employer] [id number] / / [id number] Screw Depuy Cancellous Bone 6.5mm X 25mm - [id number] Implanted:Qt y: 1 on 02/05/2024 by Juarez Bagley DO at [facility] Screw Left: Hip DEPUY [id number] 09/29/2031 [id number] / / [id number] Actis Duofix Hip Prosthesis Femoral Stem Implanted:Qt y: 1 on 02/05/2024 by Juarez Bagley DO at [facility] Left: Femur [employer] - A MAG [employer] MAG 12/29/2033 1010-03-05 0 / / [id number] Procedures Procedure Name Priority Date/Time Associated Diagnosis Comments MRI ABD WWO CON Routine 10/01/2024 1:24 PM CDT Kidney lesion, takotna, right CT ABD+PEL WWO CON Routine 09/16/2024 [...] Kaufman MD on 10/09/2024 10:41 AM CDT [facility] [address] [place] [address] Addendum: Procedure(s): MRI ABD WWO CON Date [...] By: Donald Kaufman MD, 10/08/2024 11:48 AM Narrative 10/08/2024 12:00 PM CDT [facility] [address] [place] [address] Procedure(s): MRI ABD WWO CON Date of [...] Procedure Note Donald Kaufman MD - 10/08/2024 [facility] [address] [place] [address] Procedure(s): MRI ABD WWO CON Date of [...] MD, 10/08/2024 11:48 AM us Haven Soni ED MANAGER MRI Edited Resul t - Final * [...] 1:08 PM Narrative 09/22/2024 1:14 PM CDT [facility] [address] [place] [address] Procedure(s): CT ABD+PEL WWO CON Date of [...] Procedure Note Donald Kaufman MD - 09/22/2024 [facility] [address] [place] [address] Procedure(s): CT ABD+PEL WWO CON Date of [...] Kaufman MD, 09/22/2024 1:08 PM Anjelica Delacruz NEW CAR SALES MANAGER-BC CT Final Re sult * US ABD [...] 4:59 PM Narrative 09/15/2024 5:04 PM CDT [facility] [address] [place] [address] IMAGING STUDIES: US ABD LIMITED DATE: 09/15/2024 7:57 AM COMPARISON STUDIES: CT abdomen of 09/03/2024 CLINICAL HISTORY: Hepatomegaly, not elsewhere classified. Cholecystectomy FINDINGS: Cholecystectomy. Moderate fatty infiltration of the liver without focal mass... Hepatomegaly with cc dimension of 21 cm. No adjacent ascites. Hepatic and portal veins are patent.. Common bile duct measures.6.3 mm. Right kidney awrcccjm28.8 x 4.8 x 4.5 cm.. No focal mass or hydronephrosis.. Subtle low density seen within the lateral mid right kidney on CT cannot be delineated on this ultrasound Partially visualized pancreas without gross abnormality. Procedure Note Rajan Goodwin MD - 09/15/2024 [facility] [address] [place] [phone] IMAGING STUDIES: US ABD LIMITED DATE: 09/15/2024 7:57 AM COMPARISON STUDIES: CT abdomen of 09/03/2024 CLINICAL HISTORY: Hepatomegaly, not elsewhere classified.Cholecystectomy FINDINGS: Cholecystectomy. Moderate fatty infiltration of the liver without focal mass...Hepatomegaly with cc dimension of 21 cm. No adjacent ascites. Hepatic and portal veins are patent.. Common bile duct measures.6.3 mm. Right kidney ceciquxx15.8 x 4.8 x 4.5 cm.. No focal [...] Goodwin, 09/15/2024 4:59 PM us Anjelica Delacruz NEW CAR SALES MANAGER- ULTRASOUND Final Re sult * (ABNORMAL) URINALYSIS, AUTO, COMPLETE (09/08/2024 11:40 AM CDT) Only the most recent of2 resultswithin the time period is included. COLOR (U) YELLOW 09/08/2024 12:44 PM CDT [facility] TRANSPARENCY HAZY 09/08/2024 12:44 PM CDT [facility] SPECIFIC GRAVITY (U) 1.020 1.000 - 1.030 09/08/2024 12:44 PM CDT [facility] U PH 7.0 5.0 - 9.0 09/08/2024 12:44 PM CDT [facility] LEUKOCYTES (U) 3+(A) NEGATIVE 09/08/2024 12:44 PM CDT [facility] NITRITES NEGATIVE NEGATIVE 09/08/2024 12:44 PM CDT [facility] PROTEIN RANDOM (U) 1+(A) NEGATIVE 09/08/2024 12:44 PM CDT [facility] GLUCOSE (U) NEGATIVE NEGATIVE 09/08/2024 12:44 PM CDT [facility] KETONES MG/DL (U) NEGATIVE NEGATIVE 09/08/2024 12:44 PM CDT [facility] BILIRUBIN (U) NEGATIVE NEGATIVE 09/08/2024 12:44 PM CDT [facility] BLOOD (U) 3+(A) NEGATIVE 09/08/2024 12:44 PM CDT [facility] WBC/HPF 50-100 0 - 5 /HPF 09/08/2024 12:44 PM CDT [facility] RBC/HPF 5-10 0 - 5 /HPF 09/08/2024 12:44 PM CDT [facility] EPI/HPF RARE /HPF 09/08/2024 12:44 PM CDT [facility] BACTERIA (U) FEW /HPF 09/08/2024 12:44 PM CDT [facility] URINE SPECIMEN OBTAINED BY CLEAN CATCH PROCEDURE / Unknown 09/08/2024 11:40 AM CDT us Ean Pederson MD URINE ORDERABLES F inal Result [facility] [address] [place] [address], [place] [phone] * (ABNORMAL) COMPREHENSIVE METABOLIC PANEL (09/08/2024 11:40 AM CDT) Only the most recent of2 resultswithin the time period is included. GLUCOSE 104(H) 70 - 99 MG/DL 09/08/2024 12:01 PM CDT [facility] BUN 12 7 - 18 MG/DL 09/08/2024 12:01 PM [facility] CREATININE S/P/B 0.71 0.55 - 1.02 MG/DL 09/08/2024 12:01 PM [facility] SODIUM S/P/B 142 136 - 145 MMOL/L 09/08/2024 12:01 PM [facility] POTASSIUM S/P/B 4.1 3.5 - 5.1 MMOL/L 09/08/2024 12:01 PM [facility] CHLORIDE S/P/B 105 100 - 108 MMOL/L 09/08/2024 12:01 PM [facility] CO2 28.7 21 - 32 MMOL/L 09/08/2024 12:01 PM [facility] CALCIUM S/P/B 9.3 8.5 - 10.1 MG/DL 09/08/2024 12:01 PM [facility] BILIRUBIN TOTAL S/P/B 0.4 0.2 - 1.2 MG/DL 09/08/2024 12:01 PM [facility] TOTAL PROTEIN S/P/B 7.7 6.4 - 8.2 G/DL 09/08/2024 12:01 PM [facility] ALBUMIN S/P/B 4.1 3.4 - 5.0 G/DL 09/08/2024 12:01 PM [facility] AST 13(L) 15 - 37 U/L 09/08/2024 12:01 PM [facility] ALT 31 14 - 55 U/L 09/08/2024 12:01 PM [facility] ALKALINE PHOSPHATASE S/P/B 89 50 - 136 U/L 09/08/2024 12:01 PM [facility] ANION GAP 8.3 5 - 15 MMOL/L 09/08/2024 12:01 PM CDT [facility] BUN CREATININE RATIO 16.9 6 - 26 09/08/2024 12:01 PM CDT [facility] A/G RATIO 1.1 1.0 - 2.0 RATIO 09/08/2024 12:01 PM CDT [facility] GFR ESTIMATE >90 >90 ML/MIN/1.7 3 M2 09/08/2024 12:01 PM CDT [facility] Comment: NOTE: eGFR is not calculated for patients <18 years of age. This is an estimated GFR calculation using the new CKD EPI creatinine equation without race and so does not require a correction factor for race. This estimated GFR should not be used for calculating drug doses. 09/08/2024 11:4 0 AM CDT Ean Pederson MD LABORATORY Fi nal Result [facility] [address] [place] [address], [place] [phone] * HEPATITIS PANEL,ACUTE (09/08/2024 11:40 AM CDT) HEPATITIS B SURFACE AG NON-REACTI VE NON-REACTI VE 09/08/2024 10:32 PM CDT [facility] HEP B CORE IGM NON-REACTI VE NON-REACTI VE 09/08/2024 10:32 PM CDT [facility] HAV IGM NON-REACTI VE NON-REACTI VE 09/08/2024 10:32 PM CDT [facility] HEPATITIS C AB NON-REACTI VE NON-REACTI VE 09/08/2024 10:32 PM CDT [facility] 09/08/2024 11:4 0 AM CDT Anjelica Hollingsworth Braulio NEW CAR SALES MANAGER- LABORATORY Final Re sult [facility] [address] [place] [address], [place] [phone] * (ABNORMAL) CBC W/DIFF AUTOMATED (09/08/2024 11:40 AM CDT) Only the most recent of2 resultswithin the time period is included. WBC 11.05(H) 4.4 - 11.0 x10'3/uL 09/08/2024 11:48 AM CDT [facility] RBC 4.61 4.50 - 5.10 x10'6/uL 09/08/2024 11:48 AM CDT [facility] HGB 14.0 12.3 - 15.3 G/DL 09/08/2024 11:48 AM CDT [facility] HCT 40.7 35.9 - 44.6 % 09/08/2024 11:48 AM CDT [facility] MCV 88.3 80.0 - 96.0 FL 09/08/2024 11:48 AM CDT [facility] MCH 30.4 25.3 - 30.9 PG 09/08/2024 11:48 AM CDT [facility] MCHC 34.4(H) 31.0 - 34.1 G/DL 09/08/2024 11:48 AM CDT [facility] RDW 13.2 12.4 - 15.1 % 09/08/2024 11:48 AM CDT [facility] PLT 398(H) 151 - 353 x10'3/uL 09/08/2024 11:48 AM CDT [facility] MPV 9.6 9.6 - 12.0 FL 09/08/2024 11:48 AM CDT [facility] RBC MORPHOLOGY NORMAL 09/08/2024 11:48 AM CDT [facility] PLT MORPH. NORMAL 09/08/2024 11:48 AM CDT [facility] WBC MORPHOLOGY NORMAL 09/08/2024 11:48 AM CDT [facility] LYMPHOCYTES % 16.4 15.8 - 45.0 % 09/08/2024 11:48 AM CDT [facility] NEUTROPHILS % 72.3(H) 42.1 - 71.9 % 09/08/2024 11:48 AM CDT [facility] MONOCYTES % 8.4 5.7 - 12.5 % 09/08/2024 11:48 AM CDT [facility] EOSINOPHILS 2.0 0.0 - 5.6 % 09/08/2024 11:48 AM CDT [facility] BASOPHILS 0.5 0.0 - 1.3 % 09/08/2024 11:48 AM CDT [facility] ABS. NEUTROPHILS 8.00(H) 1.40 - 6.00 x10'3/uL 09/08/2024 11:48 AM CDT [facility] IMMATURE GRANS % 0.4 0.0 - 0.5 % 09/08/2024 11:48 AM CDT [facility] ABS. LYMPHOCYTES 1.81 0.80 - 4.70 x10'3/uL 09/08/2024 11:48 AM CDT [facility] 09/08/2024 11:4 0 AM CDT us Ean Pederosn MD LABORATORY Fi nal Result [facility] [address] [place] [address], * LIPASE (09/08/2024 11:40 AM CDT) Only the most recent of2 resultswithin the time period is included. Pathologist [facility] LIPASE 70 16 - 77 UNITS/L 09/08/2024 12:01 PM CDT [facility] 09/08/2024 11:4 0 AM CDT Ean Pederson MD LABORATORY Fi nal Result Performing Organization Address [facility] Co de Phone Number [facility] [address] [place] [address], [place] [phone] * PROTIME/INR, VENOUS (09/07/2024 3:39 PM CDT) [facility] PROTIME 10.8 9.1 - 12.4 SEC 09/07/2024 4:46 PM CDT [facility] INR 0.9 09/07/2024 4:46 PM CDT [facility] Comment: Recommend INR ranges for Oral Anticoagulant Therapy: Mechanical Cardiac Values 2.5-3.5 All others indication 2.0-3.0 09/07/2024 3:39 PM CDT Anjelica Delacruz [facility] Final Re sult Performing Organization Address [facility]/ZIP Co de Phone Number [facility] [address] [place] [address], [place] [phone] * HEPATIC FUNCTION PANEL (09/07/2024 3:39 PM CDT) Pathologist [facility] TOTAL PROTEIN S/P/B 7.5 6.4 - 8.2 G/DL 09/07/2024 5:23 PM CDT [facility] ALBUMIN S/P/B 4.2 3.4 - 5.0 G/DL 09/07/2024 5:23 PM CDT [facility] BILIRUBIN TOTAL S/P/B 0.5 0.2 - 1.2 MG/DL 09/07/2024 5:23 PM CDT [facility] BILIRUBIN DIRECT S/P/B 0.1 0.0 - 0.20 MG/DL 09/07/2024 5:23 PM CDT [facility] BILIRUBIN INDIRECT S/P/B 0.4 0.0 - 0.9 MG/DL 09/07/2024 5:23 PM CDT [facility] ALKALINE PHOSPHATASE S/P/B 89 50 - 136 U/L 09/07/2024 5:23 PM CDT [facility] AST 15 15 - 37 U/L 09/07/2024 5:23 PM CDT [facility] ALT 30 14 - 55 U/L 09/07/2024 5:23 PM CDT [facility] A/G RATIO 1.3 1.0 - 2.0 RATIO 09/07/2024 5:23 PM CDT [facility] 09/07/2024 3:39 PM CDT Anjelica Delacruz [facility]- LABORATORY Final Re sult [facility] [address] [place] [address], * CT ABD+PEL W IV CON ONLY [...] 4:57 PM Narrative 09/03/2024 5:09 PM CDT [facility] [address] [place] [id number] EXAM: CT ABD+PEL W CON DATE: 09/03/2024 [...] Procedure Note Vitaly Astorga MD - 09/03/2024 [facility] [address] [place] [phone] EXAM: CT ABD+PEL W CON DATE: 09/03/2024 [...] 4:55 PM Narrative 09/03/2024 4:57 PM CDT [facility] [address] [facility] [place] [address] EXAM: XR CHEST PORTABLE DATE: 09/03/2024 1552 hours Comparison 11/09/2021 INDICATION: Epigastric pain TECHNIQUE: One view FINDINGS: Mild enlargement of the heart. Normal pulmonary vessel size. The lungs are clear. No acute bone findings. Procedure Note Vitaly Astorga MD - 09/03/2024 [facility] [address] [place] [address] EXAM: XR CHEST PORTABLE DATE: 09/03/2024 1552 [...] PM CDT) 09/03/2024 3:08 PM CDT Narrative [facility] ([facility]) RAD - 09/07/2024 4:26 PM CDT [facility] Test Date: 2024-09-03 Pat Name: JC GONZALEZ Department: 85 Room: EXAM 101 Gender: Female [employer] Guide: : 1965 Requested By: REJI ARMANDO Order Number: [id number] Reading MD: Franky Sinder Measurements Intervals [place] Rate: 67 P: 41 [place]: 171 QRS: 7 QRSD: 83 T: 5 QT: 398 QTc: 421 Interpretive Statements SINUS RHYTHM WITH SINUS ARRHYTHMIA Compared to ECG 01/27/2024 13:07:19 Myocardial infarct finding no longer present Procedure Note Franky Snider MD - 09/07/2024 [facility] Test Date: 2024-09-03 Pat Name: JC GONZALEZ Department: 85 Room: EXAM 101 Gender: Female [employer] Guide: : 1965 Requested By: REJI ARMANDO Order Number: [id number] Reading MD: Franky Snider Measurements Intervals [place] Rate: 67 P: 41 [place]: 171 QRS: 7 QRSD: 83 T: 5 QT: 398 QTc: 421 Interpretive Statements SINUS RHYTHM WITH SINUS ARRHYTHMIA Compared to ECG 01/27/2024 13:07:19 Myocardial infarct finding no longer present Reji Armando MD ECG ORDERABLES Final Result Performing Organization Address City/[facility]/ZIP Co de Phone Number [facility] ([facility]) RAD * LACTIC ACID W REFLEX (SEPSIS) (09/03/2024 2:50 PM CDT) Pathologist [facility] LACTIC ACID VENOUS 1.9 0.4 - 2.0 MMOL/L 09/03/2024 3:29 PM CDT [facility] 09/03/2024 2:50 PM CDT Reji Armando MD LABORATORY Final Result Performing Organization Address City/[facility]/ZIP Co de Phone Number [facility] [address] [place] [address], [place] [phone] * TROPONIN, QUANT (09/03/2024 2:50 PM CDT) Pathologist [facility] TROPONIN I HIGH SENSITIVITY 12 0 - 50 ng/L 09/03/2024 3:28 PM CDT [facility] Comment: HIGH DOSES OF BIOTIN, TROPONIN-SPECIFIC AUTOANTIBODIES, AND ANTIBODY THERAPY CONTAINING HAMA MAY INTERFERE WITH THIS TEST RESULT. CORRELATION TO CLINICAL HISTORY AND PRESENTATION RECOMMENDED. 09/03/2024 2:50 PM CDT Reji Armando MD LABORATORY Final Result Performing Organization Address City/[facility]/ZIP Co de Phone Number [facility] [address] [place] [address], * HEMOGLOBIN, GLYCOSYLATED (08/20/2024) HGB A1C 5.7 % -[address] [facility] 08/20/2024 Romy Kapoor MD LABORATORY Final Result Performing Organization Address [facility] Co de Phone Number [phone], [place] [address] [place] [address], * (ABNORMAL) URINALYSIS AUTO DIP (08/20/2024) COLOR (U) YELLOW YELLOW [id number], [place] TRANSPARENCY CLEAR CLEAR MG-[id number], [place] GLUCOSE (U) NEGATIVE NEGATIVE MG/DL [id number], [place] BILIRUBIN (U) NEGATIVE NEGATIVE MG-[address], [place] KETONES MG/DL (U) NEGATIVE NEGATIVE MG/DL [id number] SPE[facility]IFIC GRAVITY (U) >=1.030 1.001 - 1.035 MG-[id number], [facility] BLOOD (U) MODERATE (Non Hemolyzed, Intact, About 50 rbc/uL)(A) NEGATIVE MG-[id number], [facility] PH 5.5 5.0 - 9.0 MG-[id number], [place] PROTEIN (U) NEGATIVE NEGATIVE mg/dL [id number], [place] UROBILINOGEN 0.2 0.2 - 1.0 EU/dL = mg/dL MG-[address], [place] NITRITES NEGATIVE NEGATIVE MG/DL [id number], [place] LEUKOCYTES (U) NEGATIVE NEGATIVE MG-[address], [place] URINE SPECIMEN OBTAINED BY CLEAN CATCH PROCEDURE / Unknown 08/20/2024 Romy Kapoor MD URINE ORDERABLES Final Result [id number], [place] [address] [place] [address], * MG SCREENING W JOSE DELLA DIGI [...] Date Diagnosed Date Autogenerated Problem 11/17/2024 Insurance [facility] Advance Directives * Full Code (Latest Code Status on File) Date Activated Date Inactivated Comments 02/09/2024 4:18 PM 02/17/2024 3:46 PM * Full Code Date Activated Date Inactivated Comments 02/05/2024 12:56 PM 02/07/2024 4:11 PM Care Teams Data Entry Technician Relationship Specialty [place] [id number] [facility] [address] [place] [id number] PCP - General FAMILY PRACTICE 06/23/21
== END 2024-11-19 17:39 | disposition home or self-care (01) ==
PROVIDERS: Emergency Provider Emergency Medicine; PCP Family Medicine
DX: S63.501A Unspecified sprain of right wrist, initial encounter (principal); S80.01XA Contusion of right knee, initial encounter; S60.221A Contusion of right hand, initial encounter; S00.31XA Abrasion of nose, initial encounter; S80.211A Abrasion, right knee, initial encounter; E04.1 Nontoxic single thyroid nodule; M06.9 Rheumatoid arthritis, unspecified; J45.909 Unspecified asthma, uncomplicated; N30.10 Interstitial cystitis (chronic) without hematuria; Z86.73 Personal history of transient ischemic attack (TIA), and cerebral infarction without residual deficits; M19.031 Primary osteoarthritis, right wrist; M18.9 Osteoarthritis of first carpometacarpal joint, unspecified; M19.041 Primary osteoarthritis, right hand; M48.02 Spinal stenosis, cervical region; W01.0XXA Fall on same level from slipping, tripping and stumbling without subsequent striking against object, initial encounter
CPT/HCPCS: 70450; 70486; 72125; 73110; 73130; 73562; 99284; A9270